=== PATIENT | female | born 1950 | race Caucasian/White ===

== ENCOUNTER 2024-10-11 21:15 | Observation (INO) | payer MEDICARE, OTHER ==
--- NOTE | 2024-10-11 22:30 | ED ---
Abdominal Pain HPI <Michael Groves - Last Filed: 10/12/24 03:34> - General Source: patient, EMS Mode of arrival: EMS Limitations: no limitations <Anaya Rodney - Last Filed: 10/12/24 10:19> - General Chief Complaint: Abdominal Pain Stated Complaint: abd pain Time Seen by Provider: 10/11/24 21:41 - History of Present Illness Initial Comments: Patient is a 74-year-old female past medical history dementia, prior CVA presenting today for concern for ileus. Patient presents from [facility], transfer paperwork states that patient was sent in for "colonic ileus". Patient was given an enema at her facility without resolution of constipation. Patient's daughter also arrived, states that facility staff called her and told her the patient has not had a bowel movement for "a long time but did not give a specific amount of time, and were concerned that she had "an ileus" so sent her to the hospital. Pt endorses abdominal pain, however history is limited by dementia. Daughter confirms pt is at her baseline. (Anaya) - Related Data Home Medications Medication Instructions Recorded Confirmed Acetaminophen [Tylenol] 650 mg PO Q6H PRN 10/12/24 10/12/24 Aspirin EC [Ecotrin Low Dose] 81 mg PO DAILY 10/12/24 10/12/24 Baclofen [Lioresal] 10 mg PO TID@0800,1200,1700 10/12/24 10/12/24 DULoxetine HCL [Cymbalta] 20 mg PO DAILY 10/12/24 10/12/24 Ensure Enlive 120 ml PO BID@0800,1700 10/12/24 10/12/24 Fluticasone Propion/Salmeterol 1 inhalation PO RT-BID 10/12/24 10/12/24 [Advair 250-50 Diskus] HYDROcodone/APAP 5-325MG [Joy 1 tab PO Q6H PRN 10/12/24 10/12/24 5-325] Lactobacillus Acidophilus 1 cap PO DAILY 10/12/24 10/12/24 [Acidophilus] Magnesium Hydroxide [Milk of 7,200 mg PO DAILY PRN 10/12/24 10/12/24 Magnesia Concentrate] Menthol [Biofreeze] 1 spray TOPICAL Q4H PRN 10/12/24 10/12/24 Metoprolol Tartrate [Lopressor] 12.5 mg PO BID 10/12/24 10/12/24 Na Phos,M-B/Na Phos,Di-Ba [Fleet 133 ml RECTAL DAILY PRN 10/12/24 10/12/24 Adult] Naloxegol Oxalate [Movantik] 12.5 mg PO DAILY 10/12/24 10/12/24 Omeprazole [PriLOSEC] 20 mg PO DAILY 10/12/24 10/12/24 Potassium Chloride [Klor-Con M10] 10 meq PO DAILY 10/12/24 10/12/24 Pravastatin Sodium [Pravachol] 20 mg PO HS 10/12/24 10/12/24 Pregabalin [Lyrica] 150 mg PO BID 10/12/24 10/12/24 Rivaroxaban [Xarelto] 10 mg PO DAILY 10/12/24 10/12/24 Sennosides [Senokot] 17.2 mg PO BID@0800,1700 10/12/24 10/12/24 bisacodyL [Dulcolax] 10 mg RECTAL DAILY PRN 10/12/24 10/12/24 dilTIAZem HCL [Cardizem CD] 120 mg PO Q24HR 10/12/24 10/12/24 levETIRAcetam [Keppra] 500 mg PO BID@0800,1700 10/12/24 10/12/24 tiZANidine [Zanaflex] 2 mg PO Q8HR PRN 10/12/24 10/12/24 Allergies Allergy/AdvReac Type Severity Reaction Status Date / Time No Known Allergies Allergy Verified 10/12/24 09:14 Review of Systems ROS Other: All systems not noted in ROS Statement are negative. <Michael Groves - Last Filed: 10/12/24 03:34> ROS Other: All systems not noted in ROS Statement are negative. <Anaya Rodney - Last Filed: 10/12/24 10:19> ROS Statement: Those systems with pertinent positive or pertinent negative responses have been documented in the HPI. General Exam Limitations: no limitations <Anaya Rodney - Last Filed: 10/12/24 10:19> - General Exam Comments Initial Comments: PE: CONSTITUTIONAL: No apparent distress, well appearing SKIN: Warm, dry, no jaundice, hives or petechiae EYES: Pupils are equally round, extraocular movements intact without nystagmus, clear conjunctiva, non-icteric sclera HENT: Normocephalic, atraumatic, moist mucus membranes, oropharynx clear without exudates NECK: , Full range of motion, normal appearance PULMONARY: Scant rhonchi in lung bases. no wheezes, or rales, normal excursion, no accessory muscle use and no stridor CARDIOVASCULAR: Regular rate, rhythm, normal S1 and S2. No appreciated murmurs, rubs or gallops. Strong radial pulses with intact distal perfusion. No lower extremity edema GASTROINTESTINAL: Soft, active bowel sounds throughout, tenderness to palpation on the right upper quadrant, mildly distended, no palpable masses, no rebound or guarding. No hepatosplenomegaly MUSCULOSKELETAL: Extremities have no gross deformity, no edema, redness, or swelling. NEUROLOGIC:_a/o x 1, GCS 14, pleasantly confused, uncertain why she is here though notes chronic right shoulder pain and abdominal pain, recognizes daughter, oriented to self, otherwise normal mentation and speech. Left-sided weakness, chronic PSYCHIATRIC:_Calm, cooperative pleasant (Anaya Rodney) Course Vital Signs 10/11/24 10/11/24 10/12/24 21:27 23:39 01:00 Temperature 98.7 F Pulse Rate 68 76 75 Respiratory 18 18 20 Rate Blood Pressure 137/80 192/92 177/88 O2 Sat by Pulse 97 97 95 Oximetry 10/12/24 03:57 Temperature 98.3 F Pulse Rate 72 Respiratory 18 Rate Blood Pressure 165/82 O2 Sat by Pulse 95 Oximetry Medical Decision Making - Lab Data Result diagrams: 10/11/24 23:15 10/11/24 23:15 <Michael Groves - Last Filed: 10/12/24 03:34> - Lab Data Result diagrams: 10/11/24 23:15 10/11/24 23:15 <Anaya Rodney - Last Filed: 10/12/24 10:19> - Medical Decision Making Patient care signed out to me by previous shift physician, Dr. Rodney. Briefly patient is a 74-year-old female presents to the emergency department with concerns of abdominal pain. Plan at signout is to follow-up with pending labs and imaging studies. CT abdomen pelvis shows no acute processes. Laboratory evaluation obtained she has intermittently elevating lactic acid level. Urinalysis shows UTI. Patient given antibiotics. She is evaluated at the bedside at 330 she is well-appearing in nature. Denies any symptoms of sepsis. No flank pain to suggest pyelonephritis. Disposition options were discussed. Given patient has rising lactic acid levels she was given fluids and will be admitted observation. Case discussed with hospitalist for admission (Michael Groves) Was pt. sent in by a medical professional or institution (, PA, SANDWICH AND DRINK CART OPERATOR, urgent care, hospital, or long term...) When possible be specific @Yes, regional medical center Did you speak to anyone other than the patient for history (EMS, parent, family, police, friend...)? What history was obtained from this source @ -Spoke with pt's daughter who assisted in providing hx, states she was told pt was sent in for an ileus, pt is at her baseline mentals status Did you review nursing and triage notes (agree or disagree)? Why? @ -[I reviewed nursing and triage notes] I disagree with triage note, patient is not a O x 4, she has a history of dementia, is oriented to self only Were old charts reviewed (outside hosp., previous admission, EMS record, old EKG, old radiological studies, urgent care reports/EKG's, long term records)? Report findings @ -[Medical records reviewed] no records available for review Differential Diagnosis (chest pain, altered mental status, abdominal pain women, abdominal pain men, vaginal bleeding, weakness, fever, dyspnea, syncope, headache, dizziness, GI bleed, back pain, seizure, CVA, palpatations, mental health, musculoskeletal)? Differential diagnosis remains broad however top considerations include bowel obstruction, volvulus, ileus, constipation, gastroenteritis, UTI, intraabdominal mass, cholecystitis, this is not an all inclusive list EKG interpreted by me (3pts min.). @ -[As above] X-rays interpreted by me (1pt min.). @ -[None done] CT interpreted by me (1pt min.). @Personally reviewed CT abdomen pelvis, appears to show right lower lobe consolidation, no signs of bowel obstruction or bowel wall thickening, CT read by radiologist pending at time of sign out at 23:15. U/S interpreted by me (1pt. min.). @ -[None done] What testing was considered but not performed or refused? (CT, X-rays, U/S, labs)? Why? @ -[None] What meds were considered but not given or refused? Why? @ -[None] Did you discuss the management of the patient with other professionals (manuel stone i.e. , PA, S[employer] AND DR[employer] CART OPERATOR, lab, RT, psych nurse, psychologist social, director of science, teacher, regulatory compliance officer, ed case manager)? Give summary @ -[No] Was smoking cessation discussed for >3mins.? @ -[No] Was critical care preformed (if so, how long)? @ -[No] Were there social determinants of health that impacted care today? How? (Homelessness, low income, unemployed, alcoholism, drug addiction, transportation, low edu. Level, literacy, decrease access to med. care, shelter, rehab)? @ -[No] Was there de-escalation of care discussed even if they declined (Discuss DNR or withdrawal of care, Hospice)? @ -[No] What co-morbidities impacted this encounter? (DM, HTN, Smoking, COPD, CAD, Cancer, CVA, ARF, Chemo, Hep., AIDS, mental health diagnosis, sleep apnea, morbid obesity)? @Prior CVA, chronically on narcotics and muscle relaxants Was patient admitted / discharged? Hospital course, mention meds given and route, prescriptions, significant lab abnormalities, going to OR and other pertinent info. @ Signed out to oncoming physician, Dr. Humphreys, pending completion of CT/labs- This is a 74-year-old female history of dementia, prior CVA presenting today for concern for "colonic ileus" noted on outpatient x-ray performed at patient's assisted living facility due to constipation and no resolution of constipation with an enema. Patient presents via EMS. Her daughter arrived shortly afterwards and assisted in providing history. History limited due to history of dementia. I did review x-ray report provided with the patient, it appears abdominal x-ray was done earlier today that was read as "colonic ileus" with large stool burden. Vital signs stable on arrival. Abdomen is mildly distended with active bowel sounds. TTP in the right upper quadrant. Discussed with patient and daughter plan for pain control, labs, CT abdomen pelvis, they are agreeable with POC. Pending completion of labs and imaging, patient was signed out to oncoming physician at 11:15 PM. (Anaya Rodney) - Lab Data Lab Results 10/11/24 10/11/24 10/11/24 Range/Units 23:15 23:15 23:15 WBC 6.89 (4.50-10.00) 10*3/uL RBC 4.25 (4.10-5.20) 10*6/uL Hgb 12.5 (12.0-15.0) g/dL Hct 37.3 (37.2-46.3) % MCV 87.8 (80.0-97.0) fL MCH 29.4 (27.0-32.0) pg MCHC 33.5 (32.0-37.0) g/dL Plt Count 232 (140-440) 10*3/uL MPV 9.8 (9.5-12.2) fL Immature Gran % (Auto) 0.3 % Neutrophils % 59.5 % Lymphocytes % 29.2 % Monocytes % 10.6 % Eosinophils % 0.0 % Basophils % 0.4 % Immature Gran # 0.02 (0.00-0.04) 10*3/uL Neutrophils # 4.10 (1.80-7.70) 10*3/uL Lymphocytes # 2.01 (0.90-5.00) 10*3/uL Monocytes # 0.73 (0.20-1.00) 10*3/uL Eosinophils # 0.00 L (0.04-0.35) 10*3/uL Basophils # 0.03 (0.00-0.10) 10*3/uL PT 11.7 (10.0-12.5) sec INR 1.1 (<1.2) APTT 46.0 H (22.0-30.0) sec Sodium 140 (137-145) mmol/L Potassium 4.0 (3.5-5.1) mmol/L Chloride 107 (98-107) mmol/L Carbon Dioxide 27 (22-30) mmol/L Anion Gap 6 mmol/L BUN 14 (7-17) mg/dL Creatinine 0.52 (0.52-1.04) mg/dL Est GFR (CKD-EPI)AfAm >90 (>60 ml/min/1.73 sqM) Est GFR (CKD-EPI)NonAf >90 (>60 ml/min/1.73 sqM) Glucose 95 (74-99) mg/dL Lactic Ac Sepsis Rflx Plasma Lactic Acid Stephen (0.7-2.0) mmol/L Calcium 9.0 (8.4-10.2) mg/dL Total Bilirubin 0.8 (0.2-1.3) mg/dL AST 28 (14-36) U/L ALT 13 (4-34) U/L Alkaline Phosphatase 62 (38-126) U/L Total Protein 6.4 (6.3-8.2) g/dL Albumin 3.5 (3.5-5.0) g/dL Amylase 72 (30-110) U/L Lipase 84 (23-300) U/L Urine Color Urine Appearance (Clear) Urine pH (5.0-8.0) Ur Specific [place] (1.001-1.035) Urine Protein (Negative) Urine Glucose (UA) (Negative) Urine Ketones (Negative) Urine Blood (Negative) Urine Nitrite (Negative) Urine Bilirubin (Negative) Urine Urobilinogen (<2.0) mg/dL Ur Leukocyte Esterase (Negative) Urine RBC (0-5) /hpf Urine WBC (0-5) /hpf Urine WBC Clumps (None) /hpf Ur Squamous Epith Cells (0-4) /hpf Amorphous Sediment (None) /hpf Urine Bacteria (None) /hpf Urine Mucus (None) /hpf Urine Yeast (Budding) (None) /hpf Blood Type Blood Type Recheck Bld Type Recheck Status Antibody Screen Spec Expiration Date 10/11/24 10/11/24 10/12/24 Range/Units 23:15 23:15 00:03 WBC (4.50-10.00) 10*3/uL RBC (4.10-5.20) 10*6/uL Hgb (12.0-15.0) g/dL Hct (37.2-46.3) % MCV (80.0-97.0) fL MCH (27.0-32.0) pg MCHC (32.0-37.0) g/dL Plt Count (140-440) 10*3/uL MPV (9.5-12.2) fL Immature Gran % (Auto) % Neutrophils % % Lymphocytes % % Monocytes % % Eosinophils % % Basophils % % Immature Gran # (0.00-0.04) 10*3/uL Neutrophils # (1.80-7.70) 10*3/uL Lymphocytes # (0.90-5.00) 10*3/uL Monocytes # (0.20-1.00) 10*3/uL Eosinophils # (0.04-0.35) 10*3/uL Basophils # (0.00-0.10) 10*3/uL PT (10.0-12.5) sec INR (<1.2) APTT (22.0-30.0) sec Sodium (137-145) mmol/L Potassium (3.5-5.1) mmol/L Chloride (98-107) mmol/L Carbon Dioxide (22-30) mmol/L Anion Gap mmol/L BUN (7-17) mg/dL Creatinine (0.52-1.04) mg/dL Est GFR (CKD-EPI)AfAm (>60 ml/min/1.73 sqM) Est GFR (CKD-EPI)NonAf (>60 ml/min/1.73 sqM) Glucose (74-99) mg/dL Lactic Ac Sepsis Rflx Y Plasma Lactic Acid Stephen 2.1 H* (0.7-2.0) mmol/L Calcium (8.4-10.2) mg/dL Total Bilirubin (0.2-1.3) mg/dL AST (14-36) U/L ALT (4-34) U/L Alkaline Phosphatase (38-126) U/L Total Protein (6.3-8.2) g/dL Albumin (3.5-5.0) g/dL Amylase (30-110) U/L Lipase (23-300) U/L Urine Color Urine Appearance (Clear) Urine pH (5.0-8.0) Ur Specific [place] (1.001-1.035) Urine Protein (Negative) Urine Glucose (UA) (Negative) Urine Ketones (Negative) Urine Blood (Negative) Urine Nitrite (Negative) Urine Bilirubin (Negative) Urine Urobilinogen (<2.0) mg/dL Ur Leukocyte Esterase (Negative) Urine RBC (0-5) /hpf Urine WBC (0-5) /hpf Urine WBC Clumps (None) /hpf Ur Squamous Epith Cells (0-4) /hpf Amorphous Sediment (None) /hpf Urine Bacteria (None) /hpf Urine Mucus (None) /hpf Urine Yeast (Budding) (None) /hpf Blood Type A Positive Blood Type Recheck No Previous Record Bld Type Recheck Status CABO Indicated Antibody Screen NEGATIVE Spec Expiration Date 10/14/2024 - 231410/12/24 10/12/24 10/12/24 Range/Units 02:25 02:30 03:14 WBC (4.50-10.00) 10*3/uL RBC (4.10-5.20) 10*6/uL Hgb (12.0-15.0) g/dL Hct (37.2-46.3) % MCV (80.0-97.0) fL MCH (27.0-32.0) pg MCHC (32.0-37.0) g/dL Plt Count (140-440) 10*3/uL MPV (9.5-12.2) fL Immature Gran % (Auto) % Neutrophils % % Lymphocytes % % Monocytes % % Eosinophils % % Basophils % % Immature Gran # (0.00-0.04) 10*3/uL Neutrophils # (1.80-7.70) 10*3/uL Lymphocytes # (0.90-5.00) 10*3/uL Monocytes # (0.20-1.00) 10*3/uL Eosinophils # (0.04-0.35) 10*3/uL Basophils # (0.00-0.10) 10*3/uL PT (10.0-12.5) sec INR (<1.2) APTT (22.0-30.0) sec Sodium (137-145) mmol/L Potassium (3.5-5.1) mmol/L Chloride (98-107) mmol/L Carbon Dioxide (22-30) mmol/L Anion Gap mmol/L BUN (7-17) mg/dL Creatinine (0.52-1.04) mg/dL Est GFR (CKD-EPI)AfAm (>60 ml/min/1.73 sqM) Est GFR (CKD-EPI)NonAf (>60 ml/min/1.73 sqM) Glucose (74-99) mg/dL Lactic Ac Sepsis Rflx Y Plasma Lactic Acid Stephen 2.6 H* (0.7-2.0) mmol/L Calcium (8.4-10.2) mg/dL Total Bilirubin (0.2-1.3) mg/dL AST (14-36) U/L ALT (4-34) U/L Alkaline Phosphatase (38-126) U/L Total Protein (6.3-8.2) g/dL Albumin (3.5-5.0) g/dL Amylase (30-110) U/L Lipase (23-300) U/L Urine Color Light Yellow Urine Appearance Cloudy H (Clear) Urine pH 6.5 (5.0-8.0) Ur Specific [place] 1.015 (1.001-1.035) Urine Protein Negative (Negative) Urine Glucose (UA) Negative (Negative) Urine Ketones Negative (Negative) Urine Blood Small H (Negative) Urine Nitrite Negative (Negative) Urine Bilirubin Negative (Negative) Urine Urobilinogen <2.0 (<2.0) mg/dL Ur Leukocyte Esterase Large H (Negative) Urine RBC 10 H (0-5) /hpf Urine WBC 43 H (0-5) /hpf Urine WBC Clumps Few H (None) /hpf Ur Squamous Epith Cells 8 H (0-4) /hpf Amorphous Sediment Moderate H (None) /hpf Urine Bacteria Moderate H (None) /hpf Urine Mucus Rare H (None) /hpf Urine Yeast (Budding) Rare H (None) /hpf Blood Type Blood Type Recheck Bld Type Recheck Status Antibody Screen Spec Expiration Date Disposition Decision Time: 03:35 <Michael Groves - Last Filed: 10/12/24 03:34> <Anaya Rodney - Last Filed: 10/12/24 10:19> Clinical Impression: Lactic acidosis, UTI (urinary tract infection), Right lower lobe lung mass Disposition: ADMITTED IP TO THIS HOSP Condition: Fair
[2024-10-11] MEDS: HYDROcodone/APAP 5-325MG 1 EACH TAB PO STA (23:08)
[2024-10-11 23:35] LABS: Basophils # (A) 0.03 10*3/uL (0.00-0.10); Basophils % (A) 0.4 %; HCT 37.3 % (37.2-46.3); HGB 12.5 g/dL (12.0-15.0); Lymphocytes # (A) 2.01 10*3/uL (0.90-5.00); Lymphocytes % (A) 29.2 %; MCH 29.4 pg (27.0-32.0); MCHC 33.5 g/dL (32.0-37.0); MCV 87.8 fL (80.0-97.0); Mean Platelet Volume 9.8 fL (9.5-12.2); Monocytes # (A) 0.73 10*3/uL (0.20-1.00); Monocytes % (A) 10.6 %; Neutrophils % (A) 59.5 %; Platelet Count 232 10*3/uL (140-440); RBC 4.25 10*6/uL (4.10-5.20); RDW 14.6 % (11.5-14.5); WBC 6.89 10*3/uL (4.50-10.00)
[2024-10-11 23:52] LABS: ALT 13 U/L (4-34); African American GFR (CKD) >90 (>60 ml/min/1.73 sqM); Albumin 3.5 g/dL (3.5-5.0); Amylase 72 U/L (30-110); Anion Gap 6 mmol/L; Blood Urea Nitrogen 14 mg/dL (7-17); Carbon Dioxide 27 mmol/L (22-30); Chloride 107 mmol/L (98-107); Glucose 95 mg/dL (74-99); Lipase 84 U/L (23-300); Non-African American GFR(CKD) >90 (>60 ml/min/1.73 sqM); Sodium 140 mmol/L (137-145); Total Bilirubin 0.8 mg/dL (0.2-1.3); Total Protein 6.4 g/dL (6.3-8.2)
[2024-10-12 00:01] LABS: AST 28 U/L (14-36); Alkaline Phosphatase 62 U/L (38-126)
[2024-10-12 00:16] LABS: INR 1.1 (<1.2); Prothrombin Time 11.7 sec (10.0-12.5)
--- NOTE | 2024-10-12 00:28 | CT ---
EXAM: CT Abdomen and Pelvis Without Intravenous Contrast CLINICAL HISTORY: ITS.REASON CT Reason: abdominal pain TECHNIQUE: Axial computed tomography images of the abdomen and pelvis without intravenous contrast. CTDI is 11.9 mGy and DLP is 756.6 mGy-cm. This CT exam was performed using one or more of the following dose reduction techniques: automated exposure control, adjustment of the mA and/or kV according to patient size, and/or use of iterative reconstruction technique. COMPARISON: No relevant prior studies available. FINDINGS: Lung bases: RIGHT lower lobe mass measures 3 cm, partly the field-of- view. Recommend chest CT. ABDOMEN: Liver: Unremarkable. Gallbladder and bile ducts: Cholecystectomy. No ductal dilation. Pancreas: Unremarkable. No ductal dilation. Spleen: Unremarkable. No splenomegaly. Adrenals: Unremarkable. No mass. Kidneys and ureters: Unremarkable. No obstructing stones. No hydronephrosis. Stomach and bowel: Diverticulosis, without acute diverticulitis. No small bowel obstruction. No free intraperitoneal air. PELVIS: Appendix: No findings to suggest acute appendicitis. Bladder: Unremarkable. No stones. Reproductive: Hysterectomy. ABDOMEN and PELVIS: Intraperitoneal space: Unremarkable. No free air. No significant fluid collection. Bones/joints: Degenerative changes of the spine. No acute fracture. No dislocation. Soft tissues: Unremarkable. Vasculature: Atherosclerotic changes of the aorta. No abdominal aortic aneurysm. Lymph nodes: Unremarkable. No enlarged lymph nodes. IMPRESSION: 1. RIGHT lower lobe mass measures 3 cm, partly the [id number]. Recommend chest CT. 2. Cholecystectomy. 3. Hysterectomy. 4. Diverticulosis, without acute diverticulitis. No small bowel obstruction. No free intraperitoneal air.
[2024-10-12 03:04] LABS: Amorphous Sediment,Urine Moderate /hpf; Appearance,Urine Cloudy (Clear); Bacteria,Urine Moderate /hpf; Bilirubin,Urine Negative (Negative); Blood,Urine Small (Negative); Budding Yeast,Urine Rare /hpf; Color,Urine Light Yellow; Glucose,Urine (UA) Negative (Negative); Ketones,Urine Negative (Negative); Leukocyte Esterase,Urine Large (Negative); Mucus,Urine Rare /hpf; Nitrite,Urine Negative (Negative); PH, Urine 6.5 (5.0-8.0); Protein,Urine Negative (Negative); RBC,Urine 10 /hpf (0-5); Specific Gravity,Urine 1.015 (1.001-1.035); Squamous Epithelial Cell,Urine 8 /hpf (0-4); Urobilinogen,Urine <2.0 mg/dL (<2.0); WBC,Urine 43 /hpf (0-5)
[2024-10-12] MEDS ORDERED: NALOXONE 0.4 MG/ML 1 ML VIAL IV PRN (03:32)
[2024-10-12] MEDS: SODIUM CHLORIDE 0.9% 1,000 ML IV STA (03:54)
[2024-10-12] MEDS: cefTRIAXone IN SWFI 1,000 MG/10 ML SYRINGE IVP STA (03:55)
[2024-10-12] MEDS: SODIUM CHLORIDE 0.9% 1,000 ML IV SCH (04:50)
[2024-10-12] MEDS ORDERED: bisacodyL 10 MG SUPP RECTAL PRN (09:32)
[2024-10-12] MEDS ORDERED: MAGNESIUM HYDROXIDE 2,400 MG/30 ML CUP PO PRN (09:32)
[2024-10-12] MEDS ORDERED: NA PHOS,M-B/NA PHOS,DI-BA 133 ML ENEMA RECTAL PRN (09:32)
[2024-10-12] MEDS ORDERED: tiZANidine 4 MG TAB PO PRN (09:32)
[2024-10-12] MEDS ORDERED: NALOXEGOL OXALATE 12.5 MG PO SCH (10:00)
[2024-10-12] MEDS: polyethylene glycoL 3350 17 GM POWD.PACK PO SCH (10:02)
[2024-10-12] MEDS: PSYLLIUM HUSK 100% 6 GM PACKET PO SCH (10:03)
[2024-10-12] MEDS: levETIRAcetam 500 MG TAB PO SCH (10:12)
[2024-10-12] MEDS: PANTOPRAZOLE 40 MG TABLET PO SCH (10:13)
[2024-10-12] MEDS: ASPIRIN 81 MG PO SCH (10:13)
[2024-10-12] MEDS: DILTIAZEM CD 120 MG CAP.ER.24H PO SCH (10:14)
[2024-10-12] MEDS: PREGABALIN 75 MG CAP PO SCH (10:14)
[2024-10-12] MEDS: LACTOBACILLUS ACIDOPHILUS/PECT 1 EACH CAPSULE PO SCH (10:14)
[2024-10-12] MEDS: METOPROLOL TARTRATE 12.5 MG TAB PO SCH (10:16)
[2024-10-12] MEDS: ENOXAPARIN 40 MG/0.4 ML SYRINGE SQ SCH (10:16)
[2024-10-12] MEDS: DULoxetine HCL 20 MG CAPSULE.DR PO SCH (10:17)
[2024-10-12] MEDS: RIVAROXABAN 10 MG TAB PO SCH (10:18)
--- NOTE | 2024-10-12 12:30 | XR ---
EXAMINATION TYPE: XR abdomen 2V DATE OF EXAM: 10/12/2024 12:15 PM COMPARISON: CT CLINICAL INDICATION: Female, 74 years old with history of No BM for several days; [facility] TECHNIQUE: Two views of the abdomen were obtained. FINDINGS: Mild to moderate stool burden throughout the colon. The bowel gas pattern is nonspecific w ithout dilated loops of small or large bowel. Fecal material and gas are demonstrated throughout the colon and rectum. There is no evidence for organomegaly or pneumoperitoneum. No acute osseous proces s. No abnormal calcifications are present. IMPRESSION: 1. Mild to moderate stool burden throughout the colon similar to CT. Nonspecific bowel gas pattern w ithout radiographic evidence for acute process. 2. Right lower lobe mass seen on CT should be further evaluated with CT chest. Ultimately tissue endy pling via bronchoscopy. [facility], , 10/12/2024 12:28 PM
[2024-10-12] MEDS: NALOXEGOL OXALATE 12.5 MG PO SCH (12:37)
[2024-10-12] MEDS: MAGNESIUM CITRATE 296 ML BOTTLE PO ONE (13:07)
[2024-10-12] MEDS: SYMBICORT 80-4.5 MCG INHALER INHALATION SCH (13:14)
[2024-10-12] MEDS: BACLOFEN 10 MG TAB PO SCH (13:15)
[2024-10-12] MEDS ORDERED: NON FORMULARY DRUG (Ensure Enlive 120 ML) PO SCH (17:00)
--- NOTE | 2024-10-12 18:01 | P.HPIM ---
History of Present Illness H&P Date: 10/12/24 Chief Complaint: Constipation 74-year-old patient, resident of [facility] being followed by Dr. Coe. Patient was sent in for abdominal pain. Apparently has not had a bowel movement for few days. Denies any nausea vomiting. Patient is a poor historian. I had the radiologist look at the CT scan and also abdominal x-ray ordered today. Did show moderate stool. Review of systems: GEN.: Tired EYES: None HEENT: None NECK: None RESPIRATORY: None CARDIOVASCULAR: None GASTROINTESTINAL: Abdominal discomfort GENITOURINARY: None MUSCULOSKELETAL: Joint pains LYMPHATICS: None HEMATOLOGICAL: None PSYCHIATRY: [Forgetful NEUROLOGICAL: None Social history: Resident at [facility]. [facility] Physical examination: VITAL SIGNS: 98.3, 64, 16, 154 x 76, 98% room air GENERAL: BMI 30, lying bed awake a bit tired. EYES: Pupils equal. Conjunctiva justo l. HEENT: External appearance of nose and ears normal, oral cavity grossly normal. NECK: JVD not raised; masses not palpable. HEART: First and second heart sounds are normal; no edema. LUNGS: Respiratory rate normal; clear to auscultation. ABDOMEN: Soft, nontender, liver spleen not palpable, no masses palpable. PSYCH: Patient is able to answer some simple questions l. MUSCULOSKELETAL:No Clubbing/cyanosis;muscles-grossly intact NEUROLOGICAL: Cranial nerves grossly intact; no facial asymmetry, left arm co ntracture. Bilateral foot drop. LYMPHATICS: No lymph nodes palpable in the axilla and neck INVESTIGATIONS, reviewed in the clinical context: Abdominal x-ray: Mild to moderate stool burden throughout the colon. Similar to CT. Right lung mass October 11, 2024: White count 6.8 hemoglobin 12.5 platelets 232 sodium 140 potassium 4 BUN 14 creatinine 0.52 Lactic acid 2.1, 2.6 UA: Nitrite negative leukoesterase large WBC [address] abdomen pelvis: Cholecystectomy. Hysterectomy. Diverticulosis. Right lung mass 3 cm Assessment and plan: - Significant obstipation Magnesium citrate and soapsuds enema ordered - Asymptomatic bacteriuria. No antibiotics needed - Type II lactic acidosis. No clinical overt evidence of infection - Primary osteoarthritis Pain medication as needed - Essential hypertension Cardizem CD Lopressor - Seizure disorder Keppra - Atrial fibrillation history Cardizem CD. Lopressor. Xarelto - Right lung mass 3 cm Given patient's comorbidities and poor functional status probably need further workup will not be too fruitful. Will get the pulmonary consultation in the meantime - Chronic pain Lyrica. [place]. - Left arm contracture - Bilateral foot drop - Severe cognitive impairment from underlying dementia Patient been given magnesium citrate soapsuds. Home medications resumed. If patient has a good bowel movement today. He could be discharged tomorrow return to [facility] Medications and Allergies Home Medications Medication Instructions Recorded Confirmed Type Acetaminophen [Tylenol] 650 mg PO Q6H PRN 10/12/24 10/12/24 History Aspirin EC [Ecotrin Low Dose] 81 mg PO DAILY 10/12/24 10/12/24 History Baclofen [Lioresal] 10 mg PO TID@0800,1200,1700 10/12/24 10/12/24 History DULoxetine HCL [Cymbalta] 20 mg PO DAILY 10/12/24 10/12/24 History Ensure Enlive 120 ml PO BID@0800,1700 10/12/24 10/12/24 History Fluticasone Propion/Salmeterol 1 inhalation PO RT-BID 10/12/24 10/12/24 History [Advair 250-50 Diskus] HYDROcodone/APAP 5-325MG [[place] 1 tab PO Q6H PRN 10/12/24 10/12/24 History 5-325] Lactobacillus Acidophilus 1 cap PO DAILY 10/12/24 10/12/24 History [Acidophilus] Magnesium Hydroxide [Milk of 7,200 mg PO DAILY PRN 10/12/24 10/12/24 History Magnesia Concentrate] Menthol [Biofreeze] 1 spray TOPICAL Q4H PRN 10/12/24 10/12/24 History Metoprolol Tartrate [Lopressor] 12.5 mg PO BID 10/12/24 10/12/24 History Na Phos,M-B/Na Phos,Di-Ba [Fleet 133 ml RECTAL DAILY PRN 10/12/24 10/12/24 History Adult] Naloxegol Oxalate [Movantik] 12.5 mg PO DAILY 10/12/24 10/12/24 History Omeprazole [PriLOSEC] 20 mg PO DAILY 10/12/24 10/12/24 History Potassium Chloride [Klor-Con M10] 10 meq PO DAILY 10/12/24 10/12/24 History Pravastatin Sodium [Pravachol] 20 mg PO HS 10/12/24 10/12/24 History Pregabalin [Lyrica] 150 mg PO BID 10/12/24 10/12/24 History Rivaroxaban [Xarelto] 10 mg PO DAILY 10/12/24 10/12/24 History Sennosides [Senokot] 17.2 mg PO BID@0800,1700 10/12/24 10/12/24 History bisacodyL [Dulcolax] 10 mg RECTAL DAILY PRN 10/12/24 10/12/24 History dilTIAZem HCL [Cardizem CD] 120 mg PO Q24HR 10/12/24 10/12/24 History levETIRAcetam [Keppra] 500 mg PO BID@0800,1700 10/12/24 10/12/24 History tiZANidine [Zanaflex] 2 mg PO Q8HR PRN 10/12/24 10/12/24 History Allergies Allergy/AdvReac Type Severity Reaction Status Date / Time No Known Allergies Allergy Verified 10/12/24 09:14 Physical Exam Vitals: Vital Signs Temp Pulse Resp BP Pulse Ox 10/12/24 03:57 98.3 F 72 18 165/82 95 10/12/24 01:00 75 20 177/88 95 10/11/24 23:39 76 18 192/92 97 10/11/24 21:27 98.7 F 68 18 137/80 97 Intake and Output 10/11/24 10/12/24 10/12/24 22:59 06:59 14:59 Other: Weight 81.647 kg Results CBC & Chem 7: 10/11/24 23:15 10/11/24 23:15 Labs: Abnormal Lab Results - Last 24 Hours (Table) 10/11/24 10/11/24 10/11/24 Range/Units 23:15 23:15 23:15 Eosinophils # 0.00 L (0.04-0.35) 10*3/uL APTT 46.0 H (22.0-30.0) sec Plasma Lactic Acid Stephen 2.1 H* (0.7-2.0) mmol/L Urine Appearance (Clear) Urine Blood (Negative) Ur Leukocyte Esterase (Negative) Urine RBC (0-5) /hpf Urine WBC (0-5) /hpf Urine WBC Clumps (None) /hpf Ur Squamous Epith Cells (0-4) /hpf Amorphous Sediment (None) /hpf Urine Bacteria (None) /hpf Urine Mucus (None) /hpf Urine Yeast (Budding) (None) /hpf 10/12/24 10/12/24 Range/Units 02:25 02:30 Eosinophils # (0.04-0.35) 10*3/uL APTT (22.0-30.0) sec Plasma Lactic Acid Stephen 2.6 H* (0.7-2.0) mmol/L Urine Appearance Cloudy H (Clear) Urine Blood Small H (Negative) Ur Leukocyte Esterase Large H (Negative) Urine RBC 10 H (0-5) /hpf Urine WBC 43 H (0-5) /hpf Urine WBC Clumps Few H (None) /hpf Ur Squamous Epith Cells 8 H (0-4) /hpf Amorphous Sediment Moderate H (None) /hpf Urine Bacteria Moderate H (None) /hpf Urine Mucus Rare H (None) /hpf Urine Yeast (Budding) Rare H (None) /hpf
[2024-10-12] MEDS: SENNOSIDES 8.6 MG TAB PO SCH (18:19)
[2024-10-12] MEDS: PRAVASTATIN SODIUM 20 MG TAB PO SCH (20:47)
[2024-10-12] MEDS ORDERED: PSYLLIUM HUSK 100% 6 GM PACKET PO SCH (21:00)
--- NOTE | 2024-10-12 23:21 | P.CNPUL ---
History of Present Illness Consult date: 10/12/24 Reason for consult: lung mass History of present illness: This is a 74-year-old female patient, extremely debilitated related to previous CVA and dementia. The patient has chronic left-sided hemiplegia with contractures and the patient is nonambulatory and she is a [facility] resident. She has chronic contractures involving the left upper and left lower extremity. She is essentially bedridden. She has also cognitive impairment related to dementia. She presents from [facility] for some abdominal pain and and patient has not had a bowel movement for several days. Based on that, CAT scan of the abdomen and pelvis was done and a CAT scan showed a right lower lobe mass measuring 3 cm in size. There is also diverticulosis without diverticulitis. No evidence of any bowel obstruction. No intraperitoneal air. Patient is post hysterectomy and cholecystectomy. She is currently on room air oxygen. Denies having any shortness of breath. She is a former smoker. Pulse ox 96% room air oxygen. Afebrile. Lactic acid level was at 2.6 To 1.5. UA Is Abnormal with 43 WBCs, 10 RBCs, Rare Yeast, and the Chemistry Is within Normal Limits. Normal Electrolytes. Normal Renal Function. White Cell Count Is 6.8 with a Hemoglobin of 12.5. Patient Is Being Given Laxatives. No Previous History of Lung Cancer. No respiratory distress. No hemoptysis. No pleurisy. No aspiration. Review of Systems Constitutional: Reports fatigue, Reports poor appetite, Reports weakness Eyes: denies as per HPI, denies blurred vision, denies bulging eye, denies decreased vision, denies diplopia, denies discharge, denies dry eye, denies irritation, denies itching, denies pain, denies photophobia, denies loss of peripheral vision, denies loss of vision, denies tunnel vision/blind spots Ears: deny: decreased hearing, ear discharge, earache, tinnitus Ears, nose, mouth and throat: Reports as per HPI Breasts: absent: as per HPI, change in shape, gynecomastia, masses, nipple discharge, pain, skin changes, swelling Cardiovascular: Reports decreased exercise tolerance Respiratory: Reports as per HPI Gastrointestinal: Reports as per HPI, Reports constipation Genitourinary: Reports as per HPI Menstruation: Reports as per HPI Musculoskeletal: Reports as per HPI Musculoskeletal: absent: ankle pain, ankle stiffness, ankle swelling, as per HPI, elbow pain, elbow stiffness, elbow swelling, foot pain, foot stiffness, foot swelling, hand pain, hand stiffness, hand swelling, hip pain, hip stiffness, hip swelling, knee pain, knee stiffness, knee swelling, shoulder pain, shoulder stiffness, shoulder swelling, wrist pain, wrist stiffness, wrist swelling Integumentary: Reports as per HPI Neurological: Reports balance difficulties, Reports gait dysfunction, Reports motor disturbance, Reports paralysis, Reports weakness Psychiatric: Reports as per HPI Endocrine: Reports as per HPI, Reports flushing Allergic/Immunologic: Reports as per HPI Past Medical History Past Medical History: Atrial Fibrillation, CVA/TIA (Left-sided hemiplegia, dementia), Hyperlipidemia, Hypertension Additional Past Medical History / Comment(s): Seizure disorder, A-fib Medications and Allergies Home Medications Medication Instructions Recorded Confirmed Type Acetaminophen [Tylenol] 650 mg PO Q6H PRN 10/12/24 10/12/24 History Aspirin EC [Ecotrin Low Dose] 81 mg PO DAILY 10/12/24 10/12/24 History Baclofen [Lioresal] 10 mg PO TID@0800,1200,1700 10/12/24 10/12/24 History DULoxetine HCL [Cymbalta] 20 mg PO DAILY 10/12/24 10/12/24 History Ensure Enlive 120 ml PO BID@0800,1700 10/12/24 10/12/24 History Fluticasone Propion/Salmeterol 1 inhalation PO RT-BID 10/12/24 10/12/24 History [Advair 250-50 Diskus] HYDROcodone/APAP 5-325MG [[place] 1 tab PO Q6H PRN 10/12/24 10/12/24 History 5-325] Lactobacillus Acidophilus 1 cap PO DAILY 10/12/24 10/12/24 History [Acidophilus] Magnesium Hydroxide [Milk of 7,200 mg PO DAILY PRN 10/12/24 10/12/24 History Magnesia Concentrate] Menthol [Biofreeze] 1 spray TOPICAL Q4H PRN 10/12/24 10/12/24 History Metoprolol Tartrate [Lopressor] 12.5 mg PO BID 10/12/24 10/12/24 History Na Phos,M-B/Na Phos,Di-Ba [Fleet 133 ml RECTAL DAILY PRN 10/12/24 10/12/24 History Adult] Naloxegol Oxalate [Movantik] 12.5 mg PO DAILY 10/12/24 10/12/24 History Omeprazole [PriLOSEC] 20 mg PO DAILY 10/12/24 10/12/24 History Potassium Chloride [Klor-Con M10] 10 meq PO DAILY 10/12/24 10/12/24 History Pravastatin Sodium [Pravachol] 20 mg PO HS 10/12/24 10/12/24 History Pregabalin [Lyrica] 150 mg PO BID 10/12/24 10/12/24 History Rivaroxaban [Xarelto] 10 mg PO DAILY 10/12/24 10/12/24 History Sennosides [Senokot] 17.2 mg PO BID@0800,1700 10/12/24 10/12/24 History bisacodyL [Dulcolax] 10 mg RECTAL DAILY PRN 10/12/24 10/12/24 History dilTIAZem HCL [Cardizem CD] 120 mg PO Q24HR 10/12/24 10/12/24 History levETIRAcetam [Keppra] 500 mg PO BID@0800,1700 10/12/24 10/12/24 History tiZANidine [Zanaflex] 2 mg PO Q8HR PRN 10/12/24 10/12/24 History Allergies Allergy/AdvReac Type Severity Reaction Status Date / Time No Known Allergies Allergy Verified 10/12/24 09:14 Physical Exam Vitals: Vital Signs Temp Pulse Resp BP Pulse Ox 10/12/24 18:16 98.4 F 66 16 98 10/12/24 17:28 168/75 10/12/24 10:00 64 16 154/76 98 10/12/24 08:00 69 16 10/12/24 03:57 98.3 F 72 18 165/82 95 10/12/24 01:00 75 20 177/88 95 10/11/24 23:39 76 18 192/92 97 10/11/24 21:27 98.7 F 68 18 137/80 97 GENERAL: BMI 30, lying bed awake a bit tired. The patient is currently on room air oxygen. No respiratory distress. No agitation. EYES: Pupils equal. Conjunctiva justo l. HEENT: External appearance of nose and ears normal, oral cavity grossly normal. NECK: JVD not raised; masses not palpable. HEART: First and second heart sounds are normal; no edema. LUNGS: Respiratory rate normal; clear to auscultation. ABDOMEN: Soft, nontender, liver spleen not palpable, no masses palpable. PSYCH: Patient is able to answer some simple questions l. MUSCULOSKELETAL:No Clubbing/cyanosis;muscles-grossly intact NEUROLOGICAL: Cranial nerves grossly intact; no facial asymmetry, left arm contracture. Bilateral foot drop. Chronic left-sided hemiplegia with contractures and the patient is cognitive impairment related to chronic right dementia. Poor insight in her condition. LYMPHATICS: No lymph nodes palpable in the axilla and neck Results - Laboratory Findings CBC and BMP: 10/11/24 23:15 10/11/24 23:15 PT/INR, D-dimer PT 11.7 sec (10.0-12.5) 10/11/24 23:15 INR 1.1 (<1.2) 10/11/24 23:15 Abnormal lab findings: Abnormal Labs 10/11/24 10/11/24 10/11/24 23:15 23:15 23:15 Eosinophils # 0.00 L APTT 46.0 H Plasma Lactic Acid Stephen 2.1 H* Urine Appearance Urine Blood Ur Leukocyte Esterase Urine RBC Urine WBC Urine WBC Clumps Ur Squamous Epith Cells Amorphous Sediment Urine Bacteria Urine Mucus Urine Yeast (Budding) 10/12/24 10/12/24 02:25 02:30 Eosinophils # APTT Plasma Lactic Acid Stephen 2.6 H* Urine Appearance Cloudy H Urine Blood Small H Ur Leukocyte Esterase Large H Urine RBC 10 H Urine WBC 43 H Urine WBC Clumps Few H Ur Squamous Epith Cells 8 H Amorphous Sediment Moderate H Urine Bacteria Moderate H Urine Mucus Rare H Urine Yeast (Budding) Rare H Assessment and Plan Plan: Right lower lobe mass, incidental finding identified on a CAT scan of the abdomen done as part of workup for abdominal pain and constipation. 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 Chronic constipation Hypertension Seizure disorder Chronic A-fib maintained on a combination of Lopressor and Cardizem CD and anticoagulation with Xarelto Chronic pain History of CVA with chronic debility and left-sided hemiplegia with contractures involving the left upper and left lower extremity and the patient is nonambulatory Dementia with impairment cognitive functions Asymptomatic bacteriuria Degenerative arthritis skilled nursing resident Former smoker Plan Based on the CAT scan of the abdomen findings, there is a right lower lobe mass, an incidental finding which is quite suspicious for malignancy. Nevertheless, the patient is not in any shape or form to undergo further diagnostic or therapeutic interventions regarding right lower lobe mass even the diagnosis of lung cancer was established. Would like to obtain a full CAT scan of the chest with contrast. This will be mainly to assess right lower lobe findings and somewhat prognosticate and stage her disease. As stated, no infectious to any tissue diagnosis at this point in time. Treat constipation Treat comorbidities Very poor insight on her condition. She has cognitive impairments and chronic debility related to her previous CVA and chronic contractures in her left upper extremity and the patient essentially bedridden [facility] resident. Will manage her conservatively. Will continue to follow. Treatment of constipation per medicine. Time with Patient: Greater than 30
[2024-10-13] MEDS: HYDROcodone/APAP 5-325MG 1 EACH TAB PO PRN (00:43)
--- NOTE | 2024-10-13 15:00 | P.PN ---
Subjective Progress Note Date: 10/13/24 74-year-old patient, resident of [facility] being followed by Dr. Coe. Patient was sent in for abdominal pain. Apparently has not had a bowel movement for few days. Denies any nausea vomiting. Patient is a poor historian. I had the radiologist look at the CT scan and also abdominal x-ray ordered today. Did show moderate stool. 10/13. Patient seen examined. Did start having bowel movement. Denies abdominal pain. Vital signs stable REVIEW OF SYSTEMS: CONSTITUTIONAL: No fever, no malaise,. CARDIOVASCULAR: No chest pain, no palpitations, no syncope. PULMONARY: No shortness of breath, no cough, GASTROINTESTINAL: No diarrhea, no nausea, no vomiting, no abdominal pain. NEUROLOGICAL: No headaches, no weakness, PHYSICAL EXAMINATION: GENERAL: The patient is alert, chronically ill looking HEENT: Pupils are round and equally reacting to light. EOMI. No scleral icterus. No conjunctival pallor. Normocephalic, atraumatic. No pharyngeal erythema. No thyromegaly. CARDIOVASCULAR: S1 and S2 present. No murmurs, rubs, or gallops. PULMONARY: Chest is clear to auscultation, no wheezing or crackles. ABDOMEN: Soft, nontender, nondistended, normoactive bowel sounds. No palpable organomegaly. MUSCULOSKELETAL: No joint swelling or deformity. EXTREMITIES: No cyanosis, clubbing, or pedal edema. NEUROLOGICAL: Gross neurological examination did not reveal any focal deficits. SKIN: No rashes. Assessment and plan - Significant obstipation Magnesium citrate and soapsuds enema ordered - Asymptomatic bacteriuria. No antibiotics needed - Type II lactic acidosis. No clinical overt evidence of infection - Primary osteoarthritis Pain medication as needed - Essential hypertension Cardizem CD Lopressor - Seizure disorder Keppra - Atrial fibrillation history Cardizem CD. Lopressor. Xarelto - Right lung mass 3 cm Given patient's comorbidities and poor functional status probably need further workup will not be too fruitful. Pulmonology evaluated, recommended CT chest with contrast - Chronic pain Lyrica. [place]. - Left arm contracture - Bilateral foot drop - Severe cognitive impairment from underlying dementia Labs and medication were reviewed.. Continue same treatment. Continue with symptomatic treatment. Resume home medication. Monitor labs and vitals. DVT and GI prophylaxis. Further recommendations as per clinical course of the patient Dictation was produced using [email or web address] dictation software. please excuse any grammatical, word or spelling errors. Objective - Vital Signs Vital signs: Vital Signs Temp 97.4 F L 10/13/24 07:20 Pulse 61 10/13/24 07:20 Resp 17 10/13/24 07:20 BP 110/76 10/13/24 07:20 Pulse Ox 96 10/13/24 07:20 FiO2 Intake & Output 10/12/24 10/13/24 10/13/24 18:59 06:59 18:59 Weight 81.647 kg Other: Voiding Method External Catheter - Labs CBC & Chem 7: 10/11/24 23:15 10/11/24 23:15
[2024-10-13] MEDS ORDERED: RX INFO: IV CONTRAST WAS GIVEN 1 EACH MISC MISCELLANE PRN (19:50)
--- NOTE | 2024-10-13 19:50 | P.PN ---
Subjective Progress Note Date: 10/13/24 This is a 74-year-old female patient, extremely debilitated related to previous CVA and dementia. The patient has chronic left-sided hemiplegia with contractures and the patient is nonambulatory and she is a care home resident. She has chronic contractures involving the left upper and left lower extremity. She is essentially bedridden. She has also cognitive impairment related to dementia. She presents from [facility] for some abdominal pain and and patient has not had a bowel movement for several days. Based on that, CAT scan of the abdomen and pelvis was done and a CAT scan showed a right lower lobe mass measuring 3 cm in size. There is also diverticulosis without diverticulitis. No evidence of any bowel obstruction. No intraperitoneal air. Patient is post hysterectomy and cholecystectomy. She is currently on room air oxygen. Denies having any shortness of breath. She is a former smoker. Pulse ox 96% room air oxygen. Afebrile. Lactic acid level was at 2.6 To 1.5. UA Is Abnormal with 43 WBCs, 10 RBCs, Rare Yeast, and the Chemistry Is within Normal Limits. Normal Electrolytes. Normal Renal Function. White Cell Count Is 6.8 with a Hemoglobin of 12.5. Patient Is Being Given Laxatives. No Previous History of Lung Cancer. No respiratory distress. No hemoptysis. No pleurisy. No aspiration. On 10/13/2024 patient started having some bowel movement activity. No nausea or vomiting. No abdominal pain. Afebrile. Room air pulse ox 98%. Hemodynamically stable. Lactic acid level was down to 1.5. No new labs are available from today. Cultures from the urine are still negative. Patient is on Symbicort. Patient is on long-term anticoagulation with Xarelto. Remains on normal saline at 75 cc an hour. Rest of the home medications have been resumed.. Objective - Vital Signs Vital signs: Vital Signs Temp 98.0 F 10/13/24 14:00 Pulse 71 10/13/24 14:00 Resp 10/13/24 14:00 BP 95/58 10/13/24 14:00 Pulse Ox 98 10/13/24 14:00 FiO2 Intake & Output 10/13/24 10/13/24 10/14/24 06:59 18:59 06:59 Intake Total 300 Output Total 1500 Balance -1200 Weight 81.647 kg Intake: Oral 300 Output: Urine 1500 Other: Voiding Method External Catheter - Exam GENERAL: BMI 30, lying bed awake a bit tired. The patient is currently on room air oxygen. No respiratory distress. No agitation. EYES: Pupils equal. Conjunctiva justo l. HEENT: External appearance of nose and ears normal, oral cavity grossly normal. NECK: JVD not raised; masses not palpable. HEART: First and second heart sounds are normal; no edema. LUNGS: Respiratory rate normal; clear to auscultation. ABDOMEN: Soft, nontender, liver spleen not palpable, no masses palpable. PSYCH: Patient is able to answer some simple questions l. MUSCULOSKELETAL:No Clubbing/cyanosis;muscles-grossly intact NEUROLOGICAL: Cranial nerves grossly intact; no facial asymmetry, left arm con tracture. Bilateral foot drop. Chronic left-sided hemiplegia with contractures and the patient is cognitive impairment related to chronic right dementia. Poor insight in her condition. LYMPHATICS: No lymph nodes palpable in the axilla and neck - Labs CBC & Chem 7: 10/11/24 23:15 10/11/24 23:15 Labs: Microbiology - Last 24 Hours (Table) 10/12/24 02:25 Urine Culture - Final Urine,Voided Assessment and Plan Plan: Right lower lobe mass, incidental finding identified on a CAT scan of the abdomen done as part of workup for abdominal pain and constipation. 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 Hypertension Seizure disorder Chronic A-fib maintained on a combination of Lopressor and Cardizem CD and anticoagulation with Xarelto Chronic pain History of CVA with chronic debility and left-sided hemiplegia with contractures involving the left upper and left lower extremity and the patient is nonambulatory Dementia with impairment cognitive functions Asymptomatic bacteriuria Degenerative arthritis [facility] resident Former smoker Plan Condition is stable. Respiratory status also stable. Based on the CAT scan of the abdomen findings, there is a right lower lobe mass, an incidental finding which is quite suspicious for malignancy. Nevertheless, the patient is not in any shape or form to undergo further diagnostic or therapeutic interventions regarding right lower lobe mass even the diagnosis of lung cancer was established. Would like to obtain a full CAT scan of the chest with contrast. This will be mainly to assess right lower lobe findings and somewhat prognosticate and stage her disease. As stated, no interventions any tissue diagnosis at this point in time. Treat comorbidities Very poor insight on her condition. She has cognitive impairments and chronic debility related to her previous CVA and chronic contractures in her left upper extremity and the patient essentially bedridden care home resident. Will manage her conservatively. Obtain a CT scan of the chest with contrast for the reasons mentioned above. This will be essentially done to evaluate the right lower lobe mass, evaluate the mediastinum and assess the extent of her disease process.
[2024-10-13 21:37] LABS: Glucose,Whole Blood 93 mg/dL (70-110)
[2024-10-14 06:22] LABS: Glucose,Whole Blood 92 mg/dL (70-110)
[2024-10-14 09:26] LABS: Basophils # (A) 0.02 X 10*3/uL (0.00-0.10); Basophils % (A) 0.3 %; Eosinophils % (A) 1.7 %; HCT 36.3 % (37.2-46.3); HGB 11.3 g/dL (12.0-15.0); Lymphocytes # (A) 1.71 X 10*3/uL (0.90-5.00); Lymphocytes % (A) 28.3 %; MCHC 31.1 g/dL (32.0-37.0); MCV 90.1 FL (80.0-97.0); Mean Platelet Volume 10.7 FL (9.5-12.2); Monocytes # (A) 0.69 X 10*3/uL (0.20-1.00); Monocytes % (A) 11.4 %; NRBC Per 100 WBC 0 X 10*3/uL (0.00-0.01); Neutrophils # (A) 3.51 X 10*3/uL (1.80-7.70); Platelet Count 229 X 10*3/uL (140-440); RBC 4.03 X 10*6/uL (4.10-5.20); WBC 6.05 X 10*3/uL (4.50-10.00)
[2024-10-14 09:41] LABS: ALT 10 U/L (8-44); AST 15 U/L (13-35); Albumin 3.3 g/dL (3.8-4.9); Alkaline Phosphatase 77 U/L (41-126); BUN/Creat Ratio 16.67 Ratio (12.00-20.00); Calcium 7.9 mg/dL (8.7-10.3); Carbon Dioxide 25.3 mmol/L (21.6-31.8); Chloride 108 mmol/L (96-109); Globulin 2.2 g/dL (1.6-3.3); Glucose 100 mg/dL (70-110); Potassium 3.4 mmol/L (3.5-5.5); Sodium 142 mmol/L (135-145); Total Bilirubin 0.3 mg/dL (0.3-1.2); Total Protein 5.5 g/dL (6.2-8.2)
--- NOTE | 2024-10-14 09:59 | P.GSCN ---
History of Present Illness Consult date: 10/14/24 Reason for Consult: Constipation History of present illness: 74-year-old [facility] because [facility] decreased bowel function. Patient says she is having some abdominal pain. Says it is all over the abdomen. She had a CAT scan of the abdomen pelvis as well as a abdominal flatplate. Both studies show some mild to moderate stool burden. No obstructive pattern is seen. Patient says she is hungry. Unclear how much she is taking and thus far. No nausea vomiting described. Patient is confused with history of previous CVA and dementia. Unable provide significant history. Review of Systems ROS unobtainable: due to mental status Past Medical History Past Medical History: Atrial Fibrillation, CVA/TIA, Hyperlipidemia, Hypertension Additional Past Medical History / Comment(s): Seizure disorder, A-fib History of Any Multi-Drug Resistant Organisms: Unobtainable Past Anesthesia/Blood Transfusion Reactions: Unable to Obtain Smoking Status: Unknown if ever smoked Medications and Allergies Home Medications Medication Instructions Recorded Confirmed Type Acetaminophen [Tylenol] 650 mg PO Q6H PRN 10/12/24 10/12/24 History Aspirin EC [Ecotrin Low Dose] 81 mg PO DAILY 10/12/24 10/12/24 History Baclofen [Lioresal] 10 mg PO TID@0800,1200,1700 10/12/24 10/12/24 History DULoxetine HCL [Cymbalta] 20 mg PO DAILY 10/12/24 10/12/24 History Ensure Enlive 120 ml PO BID@0800,1700 10/12/24 10/12/24 History Fluticasone Propion/Salmeterol 1 inhalation PO RT-BID 10/12/24 10/12/24 History [Advair 250-50 Diskus] HYDROcodone/APAP 5-325MG [[place] 1 tab PO Q6H PRN 10/12/24 10/12/24 History 5-325] Lactobacillus Acidophilus 1 cap PO DAILY 10/12/24 10/12/24 History [Acidophilus] Magnesium Hydroxide [Milk of 7,200 mg PO DAILY PRN 10/12/24 10/12/24 History Magnesia Concentrate] Menthol [Biofreeze] 1 spray TOPICAL Q4H PRN 10/12/24 10/12/24 History Metoprolol Tartrate [Lopressor] 12.5 mg PO BID 10/12/24 10/12/24 History Na Phos,M-B/Na Phos,Di-Ba [Fleet 133 ml RECTAL DAILY PRN 10/12/24 10/12/24 History Adult] Naloxegol Oxalate [Movantik] 12.5 mg PO DAILY 10/12/24 10/12/24 History Omeprazole [PriLOSEC] 20 mg PO DAILY 10/12/24 10/12/24 History Potassium Chloride [Klor-Con M10] 10 meq PO DAILY 10/12/24 10/12/24 History Pravastatin Sodium [Pravachol] 20 mg PO HS 10/12/24 10/12/24 History Pregabalin [Lyrica] 150 mg PO BID 10/12/24 10/12/24 History Rivaroxaban [Xarelto] 10 mg PO DAILY 10/12/24 10/12/24 History Sennosides [Senokot] 17.2 mg PO BID@0800,1700 10/12/24 10/12/24 History bisacodyL [Dulcolax] 10 mg RECTAL DAILY PRN 10/12/24 10/12/24 History dilTIAZem HCL [Cardizem CD] 120 mg PO Q24HR 10/12/24 10/12/24 History levETIRAcetam [Keppra] 500 mg PO BID@0800,1700 10/12/24 10/12/24 History tiZANidine [Zanaflex] 2 mg PO Q8HR PRN 10/12/24 10/12/24 History Allergies Allergy/AdvReac Type Severity Reaction Status Date / Time No Known Allergies Allergy Verified 10/12/24 09:14 Surgical - Exam Vital Signs Temp Pulse Resp BP Pulse Ox 98.7 F 68 18 137/80 97 10/11/24 21:27 10/11/24 21:27 10/11/24 21:27 10/11/24 21:27 10/11/24 21:27 Physical exam: General: Well-developed, well-nourished HEENT: Normocephalic, sclerae nonicteric Abdomen: Mild diffuse tenderness, mild distention Extremities: No edema Neuro: Alert and confused Results - Labs 10/14/24 03:32 10/14/24 03:32 Abnormal Lab Results - Last 24 Hours (Table) 10/14/24 10/14/24 Range/Units 03:32 03:32 RBC 4.03 L (4.10-5.20) X 10*6/uL Hgb 11.3 L (12.0-15.0) g/dL Hct 36.3 L (37.2-46.3) % MCHC 31.1 L (32.0-37.0) g/dL RDW 15.0 H (11.5-14.5) % Potassium 3.4 L (3.5-5.5) mmol/L Calcium 7.9 L (8.7-10.3) mg/dL Total Protein 5.5 L (6.2-8.2) g/dL Albumin 3.3 L (3.8-4.9) g/dL Albumin/Globulin Ratio 1.50 L (1.60-3.17) Ratio Microbiology - Last 24 Hours (Table) 10/12/24 02:25 Urine Culture - Final Urine,Voided Diabetes panel 10/14/24 Range/Units 03:32 Sodium 142 (135-145) mmol/L Potassium 3.4 L (3.5-5.5) mmol/L Chloride 108 (96-109) mmol/L Carbon Dioxide 25.3 (21.6-31.8) mmol/L BUN 10.0 (9.0-27.0) mg/dL Creatinine 0.6 (0.6-1.5) mg/dL Glucose 100 (70-110) mg/dL Calcium 7.9 L (8.7-10.3) mg/dL AST 15 (13-35) U/L ALT 10 (8-44) U/L Alkaline Phosphatase 77 (41-126) U/L Total Protein 5.5 L (6.2-8.2) g/dL Albumin 3.3 L (3.8-4.9) g/dL Calcium panel 10/14/24 Range/Units 03:32 Calcium 7.9 L (8.7-10.3) mg/dL Albumin 3.3 L (3.8-4.9) g/dL Pituitary panel 10/14/24 Range/Units 03:32 Sodium 142 (135-145) mmol/L Potassium 3.4 L (3.5-5.5) mmol/L Chloride 108 (96-109) mmol/L Carbon Dioxide 25.3 (21.6-31.8) mmol/L BUN 10.0 (9.0-27.0) mg/dL Creatinine 0.6 (0.6-1.5) mg/dL Glucose 100 (70-110) mg/dL Calcium 7.9 L (8.7-10.3) mg/dL Adrenal panel 10/14/24 Range/Units 03:32 Sodium 142 (135-145) mmol/L Potassium 3.4 L (3.5-5.5) mmol/L Chloride 108 (96-109) mmol/L Carbon Dioxide 25.3 (21.6-31.8) mmol/L BUN 10.0 (9.0-27.0) mg/dL Creatinine 0.6 (0.6-1.5) mg/dL Glucose 100 (70-110) mg/dL Calcium 7.9 L (8.7-10.3) mg/dL Total Bilirubin 0.3 (0.3-1.2) mg/dL AST 15 (13-35) U/L ALT 10 (8-44) U/L Alkaline Phosphatase 77 (41-126) U/L Total Protein 5.5 L (6.2-8.2) g/dL Albumin 3.3 L (3.8-4.9) g/dL Assessment and Plan (1) Abdominal pain Narrative/Plan: 74-year-old female with abdominal pain and constipation. Add lactulose to the bowel regimen already prescribed which includes MiraLAX Senokot and probiotics. Increase activity as tolerated. Monitor bowel function. If continued constipation will perform follow-up imaging. Current Visit: Yes Status: Acute Code(s): R10.9 - UNSPECIFIED ABDOMINAL PAIN SNOMED Code(s): 72378949
--- NOTE | 2024-10-14 10:26 | CT ---
CT chest. HISTORY: Lung mass. COMPARISON: None. TECHNIQUE: Multiple axial images are obtained through the thorax following IV contrast administration . FINDINGS: There are 2 lung masses including a 2.6 cm mass in the right upper lobe posteriorly and a 3 cm mass i n the right infrahilar region. There are highly suspicious for neoplasm and direct tissue sampling or PET scan is recommended for further evaluation. The left lung is clear. There is no pleural effusion or pneumothorax. The great vessels the chest are normal and there is no mediastinal, hilar or axillary adenopathy. Limited scanning through the upper abdomen reveals no gross abnormality. There are no focal osseous l esions. IMPRESSION: 2 right lung masses as described above highly suspicious for neoplasm and further evaluation is warrall ntlynda as described above. [facility], , 10/14/2024 10:24 AM
[2024-10-14] MEDS: LACTULOSE 20 GM/30 ML CUP PO SCH (11:58)
--- NOTE | 2024-10-14 13:11 | P.PN ---
Subjective Progress Note Date: 10/14/24 74-year-old patient, resident of [facility] being followed by Dr. Coe. Patient was sent in for abdominal pain. Apparently has not had a bowel movement for few days. Denies any nausea vomiting. Patient is a poor historian. I had the radiologist look at the CT scan and also abdominal x-ray ordered today. Did show moderate stool. 10/13. Patient seen examined. Did start having bowel movement. Denies abdominal pain. Vital signs stable 10/14. Patient seen examined. Labs reviewed showing WBCs 0.05, hemoglobin 11.3, platelet count 229, sodium 142, potassium 3.4, BUN 10, creatinine 0.6. Surgery evaluated, added lactulose to the bowel regimen REVIEW OF SYSTEMS: CONSTITUTIONAL: No fever, no malaise,. CARDIOVASCULAR: No chest pain, no palpitations, no syncope. PULMONARY: No shortness of breath, no cough, GASTROINTESTINAL: No diarrhea, no nausea, no vomiting, no abdominal pain. NEUROLOGICAL: No headaches, no weakness, PHYSICAL EXAMINATION: GENERAL: The patient is alert, chronically ill looking HEENT: Pupils are round and equally reacting to light. EOMI. No scleral icterus. No conjunctival pallor. Normocephalic, atraumatic. No pharyngeal erythema. No t hyromegaly. CARDIOVASCULAR: S1 and S2 present. No murmurs, rubs, or gallops. PULMONARY: Chest is clear to auscultation, no wheezing or crackles. ABDOMEN: Soft, nontender, nondistended, normoactive bowel sounds. No palpable organomegaly. MUSCULOSKELETAL: No joint swelling or deformity. EXTREMITIES: No cyanosis, clubbing, or pedal edema. NEUROLOGICAL: Gross neurological examination did not reveal any focal deficits. SKIN: No rashes. Assessment and plan - Significant obstipation Continue aggressive bowel regimen - Asymptomatic bacteriuria. No antibiotics needed - Type II lactic acidosis. No clinical overt evidence of infection - Primary osteoarthritis Pain medication as needed - Essential hypertension Cardizem CD Lopressor - Seizure disorder Keppra - Atrial fibrillation history Cardizem CD. Lopressor. Xarelto - Right lung mass 3 cm Given patient's comorbidities and poor functional status probably need further workup will not be too fruitful. Pulmonology evaluated, recommended CT chest with contrast - Chronic pain Lyrica. [place]. - Left arm contracture - Bilateral foot drop - Severe cognitive impairment from underlying dementia Labs and medication were reviewed.. Continue same treatment. Continue with symptomatic treatment. Resume home medication. Monitor labs and vitals. DVT and GI prophylaxis. Further recommendations as per clinical course of the pat ient Dictation was produced using [employer] dictation software. please excuse any grammatical, word or spelling errors. Objective - Vital Signs Vital signs: Vital Signs Temp 98.2 F 10/14/24 08:00 Pulse 58 L 10/14/24 08:00 Resp 17 10/14/24 08:00 BP 145/75 10/14/24 08:00 Pulse Ox 100 10/14/24 08:00 FiO2 Intake & Output 10/13/24 10/14/24 10/14/24 18:59 06:59 18:59 Intake Total 300 100 Output Total 1500 Balance -1200 100 Intake: Oral 300 100 Output: Urine 1500 Other: Voiding Method External Catheter Diaper Diaper # Voids 6 # Bowel Movements 3 - Labs CBC & Chem 7: 10/14/24 03:32 10/14/24 03:32 Labs: Abnormal Lab Results - Last 24 Hours (Table) 10/14/24 10/14/24 Range/Units 03:32 03:32 RBC 4.03 L (4.10-5.20) X 10*6/uL Hgb 11.3 L (12.0-15.0) g/dL Hct 36.3 L (37.2-46.3) % MCHC 31.1 L (32.0-37.0) g/dL RDW 15.0 H (11.5-14.5) % Potassium 3.4 L (3.5-5.5) mmol/L Calcium 7.9 L (8.7-10.3) mg/dL Total Protein 5.5 L (6.2-8.2) g/dL Albumin 3.3 L (3.8-4.9) g/dL Albumin/Globulin Ratio 1.50 L (1.60-3.17) Ratio Microbiology - Last 24 Hours (Table) 10/12/24 02:25 Urine Culture - Final Urine,Voided
[2024-10-14] MEDS: POTASSIUM CHLORIDE ER 20 MEQ TAB.ER PO STA (13:56)
--- NOTE | 2024-10-14 14:35 | P.PN ---
Subjective Progress Note Date: 10/14/24 This is a 74-year-old female patient, extremely debilitated related to previous CVA and dementia. The patient has chronic left-sided hemiplegia with contractures and the patient is nonambulatory and she is a [facility] resident. She has chronic contractures involving the left upper and left lower extremity. She is essentially bedridden. She has also cognitive impairment related to dementia. She presents from [facility] for some abdominal pain and and patient has not had a bowel movement for several days. Based on that, CAT scan of the abdomen and pelvis was done and a CAT scan showed a right lower lobe mass measuring 3 cm in size. There is also diverticulosis without diverticulitis. No evidence of any bowel obstruction. No intraperitoneal air. Patient is post hysterectomy and cholecystectomy. She is currently on room air oxygen. Denies having any shortness of breath. She is a former smoker. Pulse ox 96% room air oxygen. Afebrile. Lactic acid level was at 2.6 To 1.5. UA Is Abnormal with 43 WBCs, 10 RBCs, Rare Yeast, and the Chemistry Is within Normal Limits. Normal Electrolytes. Normal Renal Function. White Cell Count Is 6.8 with a Hemoglobin of 12.5. Patient Is Being Given Laxatives. No Previous History of Lung Cancer. No respiratory distress. No hemoptysis. No pleurisy. No aspiration. On 10/13/2024 patient started having some bowel movement activity. No nausea or vomiting. No abdominal pain. Afebrile. Room air pulse ox 98%. Hemodynamically stable. Lactic acid level was down to 1.5. No new labs are available from today. Cultures from the urine are still negative. Patient is on Symbicort. Patient is on long-term anticoagulation with Xarelto. Remains on normal saline at 75 cc an hour. Rest of the home medications have been resumed.. On 10/14/2024, the patient is resting comfortably in bed. Afebrile. He is on 2 L of oxygen by nasal cannula. CAT scan of the chest was completed and it shows 2 lung masses including a 2.6 cm right upper lobe mass posteriorly and another 3 cm mass in the right infrahilar region. Those are suspicious for malignancy. Left lung is clear. Patient was made aware. No plans for bronchoscopy. This is taking account the patient's extremely poor performance and functional status. Objective - Vital Signs Vital signs: Vital Signs Temp 98.2 F 10/14/24 08:00 Pulse 58 L 10/14/24 08:00 Resp 17 10/14/24 08:00 BP 145/75 10/14/24 08:00 Pulse Ox 100 10/14/24 08:00 FiO2 Intake & Output 10/13/24 10/14/24 10/14/24 18:59 06:59 18:59 Intake Total 300 100 Output Total 1500 Balance -1200 100 Intake: Oral 300 100 Output: Urine 1500 Other: Voiding Method External Catheter Diaper Diaper # Voids 6 # Bowel Movements 3 - Exam GENERAL: BMI 30, lying bed awake a bit tired. The patient is currently on room air oxygen. No respiratory distress. No agitation. The patient is currently on 2 L of oxygen by nasal cannula EYES: Pupils equal. Conjunctiva justo HEENT: External appearance of nose and ears normal, oral cavity grossly normal. NECK: JVD not raised; masses not palpable. HEART: First and second heart sounds are normal; no edema. LUNGS: Respiratory rate normal; clear to auscultation. ABDOMEN: Soft, nontender, liver spleen not palpable, no masses palpable. PSYCH: Patient is able to answer some simple questions l. MUSCULOSKELETAL:No Clubbing/cyanosis;muscles-grossly intact NEUROLOGICAL: Cranial nerves grossly intact; no facial asymmetry, left arm contracture. Bilateral foot drop. Chronic left-sided hemiplegia with contractures and the patient is cognitive impairment related to chronic right dementia. Poor insight in her condition. LYMPHATICS: No lymph nodes palpable in the axilla and neck - Labs CBC & Chem 7: 10/14/24 03:32 10/14/24 03:32 Labs: Abnormal Lab Results - Last 24 Hours (Table) 10/14/24 10/14/24 Range/Units 03:32 03:32 RBC 4.03 L (4.10-5.20) X 10*6/uL Hgb 11.3 L (12.0-15.0) g/dL Hct 36.3 L (37.2-46.3) % MCHC 31.1 L (32.0-37.0) g/dL RDW 15.0 H (11.5-14.5) % Potassium 3.4 L (3.5-5.5) mmol/L Calcium 7.9 L (8.7-10.3) mg/dL Total Protein 5.5 L (6.2-8.2) g/dL Albumin 3.3 L (3.8-4.9) g/dL Albumin/Globulin Ratio 1.50 L (1.60-3.17) Ratio Microbiology - Last 24 Hours (Table) 10/12/24 02:25 Urine Culture - Final Urine,Voided Assessment and Plan Plan: Lung masses involving a 2 cm in the right upper lobe and 3 cm in the right lower lobe mass, incidental finding identified on a CAT scan of the abdomen done as part of workup for abdominal pain and constipation. 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 Hypertension Seizure disorder Chronic A-fib maintained on a combination of Lopressor and Cardizem CD and anticoagulation with Xarelto Chronic pain History of CVA with chronic debility and left-sided hemiplegia with contractures involving the left upper and left lower extremity and the patient is nonambulatory Dementia with impairment cognitive functions Asymptomatic bacteriuria Degenerative arthritis [facility] resident Former smoker Plan Condition is stable. Respiratory status also stable. CAT scan of the chest was noted and is consistent with possibility of primary bronchogenic carcinoma. Very poor insight on her condition. She has cognitive impairments and chronic debility related to her previous CVA and chronic contractures in her left upper extremity and the patient essentially bedridden [facility] resident. Will manage her conservatively. Recommend outpatient follow-up. No plans for biopsy at this point in time. May consider biopsy if her condition changes. No active pulmonary critical care issues at this point.
[2024-10-15] MEDS: ACETAMINOPHEN TAB 325 MG TAB PO PRN (08:53)
[2024-10-15 09:10] VITALS: BP 133/71; PULSE 60; RESP 18; TEMP 97.9
--- NOTE | 2024-10-15 13:43 | P.PN ---
Subjective Progress Note Date: 10/15/24 SURGICAL PROGRESS NOTE CHIEF COMPLAINT: Constipation HISTORY OF PRESENT ILLNESS: Patient denies any abdominal pain. She is having bowel movements. She did have 4 bowel movements yesterday. Denies any nausea or vomiting. Afebrile. Patient scheduled for discharge today PHYSICAL EXAM: VITAL SIGNS: Reviewed. GENERAL: Well-developed in no acute distress. ABDOMEN: Soft. Nondistended. Nontender. NEUROLOGIC: Alert and oriented. Cranial nerves II through XII grossly intact. ASSESSMENT: 1. Constipation PLAN: - Constipation improved. Patient having bowel movements. Patient tolerating diet. She is stable for discharge. - Recommend continue a good bowel regimen at home. Physician Forming Operator note has been reviewed by physician. Signing provider agrees with the documented findings, assessment, and plan of care. Objective - Vital Signs Vital signs: Vital Signs Temp 97.9 F 10/15/24 08:00 Pulse 60 10/15/24 08:00 Resp 18 10/15/24 08:00 BP 133/71 10/15/24 08:00 Pulse Ox 94 L 10/15/24 09:33 FiO2 Intake & Output 10/14/24 10/15/24 10/15/24 18:59 06:59 18:59 Intake Total 300 200 Balance 300 200 Intake: Oral 300 200 Other: Voiding Method Diaper Diaper Diaper # Voids 3 2 # Bowel Movements 1 1 - Labs CBC & Chem 7: 10/14/24 03:32 10/14/24 03:32
--- NOTE | 2024-10-15 14:09 | P.DS ---
Providers Date of admission: 10/12/24 03:33 Expected date of discharge: 10/15/24 Attending physician: Ruben Werner Consults: 10/12/24 17:57 Consult Physician Routine Consulting Provider: Jasbir Houston Consult Reason/Comments: Right lung mass Do you want consulting provider notified?: Yes 10/13/24 14:58 Consult Physician Routine Consulting Provider: Mehran Jackson Consult Reason/Comments: Obstipation Do you want consulting provider notified?: Yes Primary care physician: Anand Coe [facility] Course: Discharge diagnoses; - Significant obstipation Continue aggressive bowel regimen - Asymptomatic bacteriuria. No antibiotics needed - Type II lactic acidosis. No clinical overt evidence of infection - Primary osteoarthritis Pain medication as needed - Essential hypertension Cardizem CD Lopressor - Seizure disorder Keppra - Atrial fibrillation history Cardizem CD. Lopressor. Xarelto - Right lung mass 3 cm CAT scan of the chest was completed and it shows 2 lung masses including a 2.6 cm right upper lobe mass posteriorly and another 3 cm mass in the right infrahilar region. Those are suspicious for malignancy. Left lung is clear. Pulmonology discussed with patient, patient was made aware, no plans for bronchoscopy at this time, this is taking in account the patient's extremely poor performance and functional status,chronic debility related to her previous CVA and chronic contractures in her left upper extremity and the patient essentially bedridden snf resident. - Chronic pain Lyrica. [place]. - Left arm contracture - Bilateral foot drop - Severe cognitive impairment from underlying dementia Hospital course; 74-year-old patient, resident of [facility] being followed by Dr. Coe. Patient was sent in for abdominal pain. Apparently has not had a bowel movement for few days. Denies any nausea vomiting. Patient is a poor historian. I had the radiologist look at the CT scan and also abdominal x-ray ordered today. Did show moderate stool. 10/13. Patient seen examined. Did start having bowel movement. Denies abdominal pain. Vital signs stable 10/14. Patient seen examined. Labs reviewed showing WBCs 0.05, hemoglobin 11.3, platelet count 229, sodium 142, potassium 3.4, BUN 10, creatinine 0.6. Surgery evaluated, added lactulose to the bowel regimen 10/15. Patient seen and examined. CAT scan of the chest was completed and it shows 2 lung masses including a 2.6 cm right upper lobe mass posteriorly and another 3 cm mass in the right infrahilar region. Those are suspicious for mal ignancy. Left lung is clear. Pulmonology discussed with patient, patient was made aware, no plans for bronchoscopy at this time, this is taking in account the patient's extremely poor performance and functional status,chronic debility related to her previous CVA and chronic contractures in her left upper extremity and the patient essentially bedridden snf resident. Had called patient's daughter, updated her about the CT scan results and discussed with her regarding any treatment option, at this time daughter understands that the patient has expressed to her in the past that she does not want any aggressive treatment, at this time she wants to hold off on any aggressive diagnostic procedures. PHYSICAL EXAMINATION: GENERAL: The patient is alert, ill looking HEENT: Pupils are round and equally reacting to light. EOMI. No scleral icterus. No conjunctival pallor. Normocephalic, atraumatic. No pharyngeal erythema. No thyromegaly. CARDIOVASCULAR: S1 and S2 present. No murmurs, rubs, or gallops. PULMONARY: Chest is clear to auscultation, no wheezing or crackles. ABDOMEN: Soft, nontender, nondistended, normoactive bowel sounds. No palpable organomegaly. MUSCULOSKELETAL: No joint swelling or deformity. EXTREMITIES: No cyanosis, clubbing, or pedal edema. NEUROLOGICAL: Gross neurological examination did not reveal any focal deficits. SKIN: No rashes. Dictation was produced using [employer] dictation software. please excuse any grammatical, word or spelling errors. Patient Condition at Discharge: Fair Plan - Discharge Summary New Discharge Prescriptions: New Lactulose [Cephulac] 30 gm PO BID #600 ml Psyllium Husk 100% [Metamucil Packet] 6 gm PO BID 15 Days #30 packet Continue tiZANidine [Zanaflex] 2 mg PO Q8HR PRN PRN Reason: Muscle Spasm Magnesium Hydroxide [Milk of Magnesia Concentrate] 7,200 mg PO DAILY PRN PRN Reason: Constipation bisacodyL [Dulcolax] 10 mg RECTAL DAILY PRN PRN Reason: Constipation Menthol [Biofreeze] 1 spray TOPICAL Q4H PRN PRN Reason: Pain Acetaminophen [Tylenol] 650 mg PO Q6H PRN PRN Reason: Pain Or Fever > 100.5 Sennosides [Senokot] 17.2 mg PO BID@0800,1700 Metoprolol Tartrate [Lopressor] 12.5 mg PO BID Fluticasone Propion/Salmeterol [Advair 250-50 Diskus] 1 inhalation PO RT-BID Pravastatin Sodium [Pravachol] 20 mg PO HS Potassium Chloride [Klor-Con M10] 10 meq PO DAILY Lactobacillus Acidophilus [Acidophilus] 1 cap PO DAILY dilTIAZem HCL [Cardizem CD] 120 mg PO Q24HR HYDROcodone/APAP 5-325MG [[place] 5-325] 1 tab PO Q6H PRN #12 tab PRN Reason: Pain Na Phos,M-B/Na Phos,Di-Ba [Fleet Adult] 133 ml RECTAL DAILY PRN PRN Reason: Constipation Baclofen [Lioresal] 10 mg PO TID@0800,1200,1700 levETIRAcetam [Keppra] 500 mg PO BID@0800,1700 Rivaroxaban [Xarelto] 10 mg PO DAILY Ensure Enlive 120 ml PO BID@0800,1700 Omeprazole [PriLOSEC] 20 mg PO DAILY Naloxegol Oxalate [Movantik] 12.5 mg PO DAILY DULoxetine HCL [Cymbalta] 20 mg PO DAILY Aspirin EC [Ecotrin Low Dose] 81 mg PO DAILY Pregabalin [Lyrica] 150 mg PO BID 3 Days #6 cap Discharge Medication List Acetaminophen [Tylenol] 650 mg PO Q6H PRN 10/12/24 [History] Aspirin EC [Ecotrin Low Dose] 81 mg PO DAILY 10/12/24 [History] Baclofen [Lioresal] 10 mg PO TID@0800,1200,1700 10/12/24 [History] DULoxetine HCL [Cymbalta] 20 mg PO DAILY 10/12/24 [History] Ensure Enlive 120 ml PO BID@0800,1700 10/12/24 [History] Fluticasone Propion/Salmeterol [Advair 250-50 Diskus] 1 inhalation PO RT-BID 10/12/24 [History] Lactobacillus Acidophilus [Acidophilus] 1 cap PO DAILY 10/12/24 [History] Magnesium Hydroxide [Milk of Magnesia Concentrate] 7,200 mg PO DAILY PRN 10/12/24 [History] Menthol [Biofreeze] 1 spray TOPICAL Q4H PRN 10/12/24 [History] Metoprolol Tartrate [Lopressor] 12.5 mg PO BID 10/12/24 [History] Na Phos,M-B/Na Phos,Di-Ba [Fleet Adult] 133 ml RECTAL DAILY PRN 10/12/24 [History] Naloxegol Oxalate [Movantik] 12.5 mg PO DAILY 10/12/24 [History] Omeprazole [PriLOSEC] 20 mg PO DAILY 10/12/24 [History] Potassium Chloride [Klor-Con M10] 10 meq PO DAILY 10/12/24 [History] Pravastatin Sodium [Pravachol] 20 mg PO HS 10/12/24 [History] Rivaroxaban [Xarelto] 10 mg PO DAILY 10/12/24 [History] Sennosides [Senokot] 17.2 mg PO BID@0800,1700 10/12/24 [History] bisacodyL [Dulcolax] 10 mg RECTAL DAILY PRN 10/12/24 [History] dilTIAZem HCL [Cardizem CD] 120 mg PO Q24HR 10/12/24 [History] levETIRAcetam [Keppra] 500 mg PO BID@0800,1700 10/12/24 [History] tiZANidine [Zanaflex] 2 mg PO Q8HR PRN 10/12/24 [History] HYDROcodone/APAP 5-325MG [[place] 5-325] 1 tab PO Q6H PRN #12 tab 10/15/24 [Rx] Lactulose [Cephulac] 30 gm PO BID #600 ml 10/15/24 [Rx] Pregabalin [Lyrica] 150 mg PO BID 3 Days #6 cap 10/15/24 [Rx] Psyllium Husk 100% [Metamucil Packet] 6 gm PO BID 15 Days #30 packet 10/15/24 [Rx] Follow up Appointment(s)/Referral(s): Anand Coe DO [Primary Care Provider] - 1-2 days (ECF please call for follow-up appointment.) Jasbir Houston MD [STAFF PHYSICIAN] - 10/24/24 1:00 pm Discharge Disposition: TRANSFER TO SNF/ECF
== END 2024-10-15 14:13 ==
LOC: EC 21:15 → 5NMEDONC 10-12 03:33 → EEVIPCON 10-12 03:33 → 5NMEDONC 10-12 06:10 → 4SSUR 10-12 22:56
PROVIDERS: ADMIT Hospitalist; ATTEND Hospitalist
DX: K59.00 Constipation, unspecified (principal); E87.20 Acidosis, unspecified; N39.0 Urinary tract infection, site not specified; R91.8 Other nonspecific abnormal finding of lung field; F03.90 Unspecified dementia, unspecified severity, without behavioral disturbance, psychotic disturbance, mood disturbance, and anxiety; I10 Essential (primary) hypertension; E78.5 Hyperlipidemia, unspecified; K59.09 Other constipation; G40.909 Epilepsy, unspecified, not intractable, without status epilepticus; I48.20 Chronic atrial fibrillation, unspecified; G89.29 Other chronic pain; M19.91 Primary osteoarthritis, unspecified site; M21.371 Foot drop, right foot; M21.372 Foot drop, left foot; M24.59 Contracture, other specified joint; I69.354 Hemiplegia and hemiparesis following cerebral infarction affecting left non-dominant side; Z87.891 Personal history of nicotine dependence; Z79.01 Long term (current) use of anticoagulants; Z79.82 Long term (current) use of aspirin; Z79.899 Other long term (current) drug therapy
CPT/HCPCS: 96361 ×3; 96374; 99285; 36415; 94640 ×7; 94760; 86900; 86901; 80053 ×2; 82150; 83605 ×2; 83690; 85025 ×2; 85610; 85730; 86850; 81001; 87086; 74019; 71260; 74176; G0378 ×5; J0696; Q9967

== ENCOUNTER 2024-10-17 21:41 | Inpatient (IN) | payer MEDICARE, OTHER ==
--- NOTE | 2024-10-17 22:15 | ED ---
General Adult HPI - General Chief complaint: Altered Mental Status Stated complaint: Stroke Time Seen by Provider: 10/17/24 21:43 Source: EMS Mode of arrival: EMS - History of Present Illness Initial comments: Dictation was produced using [employer] dictation software. please excuse any grammatical, word or spelling errors. Chief Complaint: 74-year-old female history of dementia and left-sided weakness from previous CVA presents to the ER for altered mental status for over 24 hours History of Present Illness: History of present illness obtained from EMS. Patient allegedly at residential was found to be altered yesterday. Patient is DNR. According to residential documentation patient has history of chronic left hemiplegia from suffered CVA. Apparently she has been altered and new onset aphasia approximately 24 hours ago. Patient unable to write history present illness due to status. Allegedly patient has history of dementia. Unable to obtain ROS secondary mental status - Related Data Home Medications Medication Instructions Recorded Confirmed Acetaminophen [Tylenol] 650 mg PO Q6H PRN 10/12/24 10/12/24 Aspirin EC [Ecotrin Low Dose] 81 mg PO DAILY 10/12/24 10/12/24 Baclofen [Lioresal] 10 mg PO TID@0800,1200,1700 10/12/24 10/12/24 DULoxetine HCL [Cymbalta] 20 mg PO DAILY 10/12/24 10/12/24 Ensure Enlive 120 ml PO BID@0800,1700 10/12/24 10/12/24 Fluticasone Propion/Salmeterol 1 inhalation PO RT-BID 10/12/24 10/12/24 [Advair 250-50 Diskus] Lactobacillus Acidophilus 1 cap PO DAILY 10/12/24 10/12/24 [Acidophilus] Magnesium Hydroxide [Milk of 7,200 mg PO DAILY PRN 10/12/24 10/12/24 Magnesia Concentrate] Menthol [Biofreeze] 1 spray TOPICAL Q4H PRN 10/12/24 10/12/24 Metoprolol Tartrate [Lopressor] 12.5 mg PO BID 10/12/24 10/12/24 Na Phos,M-B/Na Phos,Di-Ba [Fleet 133 ml RECTAL DAILY PRN 10/12/24 10/12/24 Adult] Naloxegol Oxalate [Movantik] 12.5 mg PO DAILY 10/12/24 10/12/24 Omeprazole [PriLOSEC] 20 mg PO DAILY 10/12/24 10/12/24 Potassium Chloride [Klor-Con M10] 10 meq PO DAILY 10/12/24 10/12/24 Pravastatin Sodium [Pravachol] 20 mg PO HS 10/12/24 10/12/24 Rivaroxaban [Xarelto] 10 mg PO DAILY 10/12/24 10/12/24 Sennosides [Senokot] 17.2 mg PO BID@0800,1700 10/12/24 10/12/24 bisacodyL [Dulcolax] 10 mg RECTAL DAILY PRN 10/12/24 10/12/24 dilTIAZem HCL [Cardizem CD] 120 mg PO Q24HR 10/12/24 10/12/24 levETIRAcetam [Keppra] 500 mg PO BID@0800,1700 10/12/24 10/12/24 tiZANidine [Zanaflex] 2 mg PO Q8HR PRN 10/12/24 10/12/24 Previous Rx's Medication Instructions Recorded HYDROcodone/APAP 5-325MG [[place] 1 tab PO Q6H PRN #12 tab 10/15/24 5-325] Lactulose [Cephulac] 30 gm PO BID #600 ml 10/15/24 Pregabalin [Lyrica] 150 mg PO BID 3 Days #6 cap 10/15/24 Psyllium Husk 100% [Metamucil 6 gm PO BID 15 Days #30 packet 10/15/24 Packet] Allergies Allergy/AdvReac Type Severity Reaction Status Date / Time No Known Allergies Allergy Verified 10/17/24 21:51 Review of Systems ROS Statement: Those systems with pertinent positive or pertinent negative responses have been documented in the HPI. ROS Other: All systems not noted in ROS Statement are negative. Past Medical History Past Medical History: Atrial Fibrillation, CVA/TIA, Hyperlipidemia, Hypertension Additional Past Medical History / Comment(s): Seizure disorder, A-fib History of Any Multi-Drug Resistant Organisms: Unobtainable Past Surgical History: Unable to Obtain Past Anesthesia/Blood Transfusion Reactions: Unable to Obtain Smoking Status: Unknown if ever smoked Past Alcohol Use History: Unable to Obtain Past Drug Use History: Unable to Obtain General Exam - General Exam Comments Initial Comments: PHYSICAL EXAM: General Impression: Alert, not in acute distress following commands HEENT: Normocephalic atraumatic, extra-ocular movements intact, pupils equal and reactive to light bilaterally, mucous membranes moist. Cardiovascular: Heart regular rate and rhythm Chest: no retractions, no tachypnea Abdomen: abdomen soft, non-tender, non-distended, no organomegaly Musculoskeletal: Pulses present and equal in all extremities, no peripheral e estuardo Motor: no focal deficits noted Neurological: CN II-XII grossly intact Skin: Intact with no visualized rashes Course Vital Signs 10/17/24 10/17/24 10/18/24 21:44 22:53 01:05 Temperature 98.8 F Pulse Rate 65 61 58 L Respiratory 20 18 18 Rate Blood Pressure 147/99 117/71 156/57 O2 Sat by Pulse 97 97 90 L Oximetry EKG Findings - EKG Comments: EKG Findings:: My EKG interpretation: Ventricular rate 62, sinus rhythm, PA 173, QRS 85, QTc 436. No PA prolongation, no QTC prolongation, no ST or T-wave changes noted. Overall, this EKG is unremarkable Medical Decision Making - Medical Decision Making Was pt. sent in by a medical professional or institution (, PA, BELL PERSON, urgent care, hospital, or residential...) When possible be specific @ -[No] Did you speak to anyone other than the patient for history (EMS, parent, family, police, friend...)? What history was obtained from this source @ -See above Did you review nursing and triage notes (agree or disagree)? Why? @ -[I reviewed and agree with nursing and triage notes] Were old charts reviewed (outside hosp., previous admission, EMS record, old EKG, old radiological studies, urgent care reports/EKG's, residential records)? Report findings @ -[No old charts were reviewed] Differential Diagnosis (chest pain, altered mental status, abdominal pain women, abdominal pain men, vaginal bleeding, musculoskeletal, weakness, fever, dyspnea, syncope, headache, dizziness, GI bleed, back pain, seizure, CVA, palpatations, mental health)? @ -Differential Altered Mental Status: Hypoglycemia, DKA, hypercapnia, ETOH, overdose, CO poisoning, trauma, myxedema coma, HTN encephalopathy, infection, encephalitis, psychosis, intercranial hemorrhage, hepatic encephalopathy, meningitis, CVA, this is not meant to be an all-inclusive list EKG interpreted by me (3pts min.). @ -See above X-rays interpreted by me (1pt min.). @ -Chest x-ray is nonacute CT interpreted by me (1pt min.). @ -CT noncontrast shows no bleed. CT angiography shows faint enhancement of the distal right vertebral artery U/S interpreted by me (1pt. min.). @ -[None done] What testing was considered but not performed or refused? (CT, X-rays, U/S, labs)? Why? @ -[None] What meds were considered but not given or refused? Why? @ -[None] Was smoking cessation discussed for >3mins.? @ -[No] Were there social determinants of health that impacted care today? How? (Homeles sness, low income, unemployed, alcoholism, drug addiction, transportation, low edu. Level, literacy, decrease access to med. care, half-way, rehab)? @ -[No] Was there de-escalation of care discussed even if they declined (Discuss DNR or withdrawal of care, Hospice)? DNR status @ -Patient is DNR What co-morbidities impacted this encounter? (DM, HTN, Smoking, COPD, CAD, Cancer, CVA, ARF, Chemo, Hep., AIDS, mental health diagnosis, sleep apnea, morbid obesity)? @ -Dementia Was patient admitted / discharged? Hospital course, mention meds given and route, prescriptions, significant lab abnormalities, going to OR and other pertinent info. @ -[age]-year-old female with dementia presents to the emergency department for altered mental status. Patient last known normal was greater than 24 hours prio r to arrival. Not a candidate for aggressive stroke treatment. Furthermore patient is no code. Vital signs upon arrival are within acceptable limits. Patient encephalopathic at the bedside. Labs unremarkable. Imaging study shows no obvious findings. Pending urine studies. Will be admitted to hospital with neurology consultation. Case discussed with hospitalist for admission Did you discuss the management of the patient with other professionals (professionals i.e. , PA, BELL PERSON, lab, RT, psych nurse, social worker psychiatric, cheese blender, teacher, family preservation officer, case therapist)? Give summary @ -As above Was critical care preformed (if so, how long)? @ -[No] Undiagnosed new problem with uncertain prognosis? @ -[No] Drug Therapy requiring intensive monitoring for toxicity (Heparin, Nitro, Insulin, Cardizem)? @ -[No] Were any procedures done? @ -[No] Diagnosis/symptom? Acute, or Chronic, or Acute on Chronic? Uncomplicated (without systemic symptoms) or Complicated (systemic symptoms)? @ -Altered mental status Side effects of treatment? @ -[No] Exacerbation, Progression, or Severe Exacerbation? @ -[No] Poses a threat to life or bodily function? How? (Chest pain, USA, SD, pneumonia, PE, COPD, DKA, ARF, appy, cholecystitis, CVA, Diverticulitis, Homicidal, Suicidal, threat to staff... and all critical care pts) @ yes - Lab Data Result diagrams: 10/17/24 22:25 10/17/24 22: Lab Results 10/17/24 10/17/24 10/17/24 Range/Units 22:25 22:25 22:25 WBC 7.35 (4.50-10.00) 10*3/uL RBC 4.34 (4.10-5.20) 10*6/uL Hgb 12.6 (12.0-15.0) g/dL Hct 37.7 (37.2-46.3) % MCV 86.9 (80.0-97.0) fL MCH 29.0 (27.0-32.0) pg MCHC 33.4 (32.0-37.0) g/dL Plt Count 257 (140-440) 10*3/uL MPV 9.8 (9.5-12.2) fL Immature Gran % (Auto) 0.3 % Neutrophils % 54.3 % Lymphocytes % 33.9 % Monocytes % 11.2 % Eosinophils % 0.0 % Basophils % 0.3 % Immature Gran # 0.02 (0.00-0.04) 10*3/uL Neutrophils # 4.00 (1.80-7.70) 10*3/uL Lymphocytes # 2.49 (0.90-5.00) 10*3/uL Monocytes # 0.82 (0.20-1.00) 10*3/uL Eosinophils # 0.00 L (0.04-0.35) 10*3/uL Basophils # 0.02 (0.00-0.10) 10*3/uL Sodium 142 (137-145) mmol/L Potassium 3.5 (3.5-5.1) mmol/L Chloride 106 (98-107) mmol/L Carbon Dioxide 25 (22-30) mmol/L Anion Gap 11 mmol/L BUN 13 (7-17) mg/dL Creatinine 0.66 (0.52-1.04) mg/dL Est GFR (CKD-EPI)AfAm >90 (>60 ml/min/1.73 sqM) Est GFR (CKD-EPI)NonAf 86 (>60 ml/min/1.73 sqM) Glucose 98 (74-99) mg/dL Plasma Lactic Acid Stephen 0.9 (0.7-2.0) mmol/L Calcium 9.4 (8.4-10.2) mg/dL Magnesium 2.2 (1.6-2.3) mg/dL Total Bilirubin 0.6 (0.2-1.3) mg/dL AST 18 (14-36) U/L ALT 13 (4-34) U/L Alkaline Phosphatase 85 (38-126) U/L Troponin I (0.000-0.034) ng/mL Total Protein 6.6 (6.3-8.2) g/dL Albumin 3.7 (3.5-5.0) g/dL / Range/Units 22:25 WBC (4.50-10.00) 10*3/uL RBC (4.10-5.20) 10*6/uL Hgb (12.0-15.0) g/dL Hct (37.2-46.3) % MCV (80.0-97.0) fL MCH (27.0-32.0) pg MCHC (32.0-37.0) g/dL Plt Count (140-440) 10*3/uL MPV (9.5-12.2) fL Immature Gran % (Auto) % Neutrophils % % Lymphocytes % % Monocytes % % Eosinophils % % Basophils % % Immature Gran # (0.00-0.04) 10*3/uL Neutrophils # (1.80-7.70) 10*3/uL Lymphocytes # (0.90-5.00) 10*3/uL Monocytes # (0.20-1.00) 10*3/uL Eosinophils # (0.04-0.35) 10*3/uL Basophils # (0.00-0.10) 10*3/uL Sodium (137-145) mmol/L Potassium (3.5-5.1) mmol/L Chloride (98-107) mmol/L Carbon Dioxide (22-30) mmol/L Anion Gap mmol/L BUN (7-17) mg/dL Creatinine (0.52-1.04) mg/dL Est GFR (CKD-EPI)AfAm (>60 ml/min/1.73 sqM) Est GFR (CKD-EPI)NonAf (>60 ml/min/1.73 sqM) Glucose (74-99) mg/dL Plasma Lactic Acid Stephen (0.7-2.0) mmol/L Calcium (8.4-10.2) mg/dL Magnesium (1.6-2.3) mg/dL Total Bilirubin (0.2-1.3) mg/dL AST (14-36) U/L ALT (4-34) U/L Alkaline Phosphatase (38-126) U/L Troponin I <0.012 (0.000-0.034) ng/mL Total Protein (6.3-8.2) g/dL Albumin (3.5-5.0) g/dL Disposition Clinical Impression: Altered mental status Disposition: ADMITTED IP TO THIS [facility] Condition: Fair Referrals: Anand Coe DO [Primary Care Provider] - 1-2 days Decision Time: 02:01
[2024-10-17 22:36] LABS: Basophils # (A) 0.02 10*3/uL (0.00-0.10); Basophils % (A) 0.3 %; HCT 37.7 % (37.2-46.3); HGB 12.6 g/dL (12.0-15.0); Lymphocytes # (A) 2.49 10*3/uL (0.90-5.00); Lymphocytes % (A) 33.9 %; MCHC 33.4 g/dL (32.0-37.0); MCV 86.9 fL (80.0-97.0); Mean Platelet Volume 9.8 fL (9.5-12.2); Monocytes # (A) 0.82 10*3/uL (0.20-1.00); Monocytes % (A) 11.2 %; Neutrophils % (A) 54.3 %; Platelet Count 257 10*3/uL (140-440); RBC 4.34 10*6/uL (4.10-5.20); RDW 14.7 % (11.5-14.5); WBC 7.35 10*3/uL (4.50-10.00)
[2024-10-17 22:56] LABS: ALT 13 U/L (4-34); AST 18 U/L (14-36); African American GFR (CKD) >90 (>60 ml/min/1.73 sqM); Albumin 3.7 g/dL (3.5-5.0); Alkaline Phosphatase 85 U/L (38-126); Anion Gap 11 mmol/L; Blood Urea Nitrogen 13 mg/dL (7-17); Calcium 9.4 mg/dL (8.4-10.2); Carbon Dioxide 25 mmol/L (22-30); Chloride 106 mmol/L (98-107); Glucose 98 mg/dL (74-99); Magnesium 2.2 mg/dL (1.6-2.3); Non-African American GFR(CKD) 86 (>60 ml/min/1.73 sqM); Potassium 3.5 mmol/L (3.5-5.1); Sodium 142 mmol/L (137-145); Total Bilirubin 0.6 mg/dL (0.2-1.3); Total Protein 6.6 g/dL (6.3-8.2)
--- NOTE | 2024-10-18 00:13 | XR ---
EXAM: XR Chest, 1 View CLINICAL HISTORY: AMS TECHNIQUE: Frontal view of the chest. COMPARISON: CT chest 10/14/2024 FINDINGS: Lungs: Shallow inspiration. The airspace opacity involving the posterior right upper lobe noted on the CT examination persists. The perihilar vasculature appears somewhat prominent and equalized. Pleural space: Unremarkable. No pneumothorax. No large pleural effusion. Heart: Unremarkable. No cardiomegaly. Mediastinum: The mediastinal contours are thought to be unremarkable, accounting for obliquity. No tracheal deviation. Bones/joints: Degenerative changes of the right shoulder. No acute osseous abnormality. IMPRESSION: The airspace opacity involving the posterior right upper lobe noted on the CT examination persists. The perihilar vasculature appears somewhat prominent and equalized.
--- NOTE | 2024-10-18 00:18 | CT ---
EXAM: CT Head Without Intravenous Contrast CLINICAL HISTORY: ams TECHNIQUE: Axial computed tomography images of the head/brain without intravenous contrast. CTDI is 48.8 mGy and DLP is 1175 mGy-cm. This CT exam was performed using one or more of the following dose reduction techniques: automated exposure control, adjustment of the mA and/or kV according to patient size, and/or use of iterative reconstruction technique. COMPARISON: No relevant prior studies available. FINDINGS: Brain: Chronic encephalomalacia involving the right posterior MCA territory, predominantly involving the right parietal region, but also involving the lateral right posterior basal ganglia and the insular and temporal lobes. No acute intracranial hemorrhage. Diffuse mild parenchymal involutional changes with prominence of the cerebral sulci and sylvian fissures. Scattered deep white matter hypodense changes. Ventricles: Ex vacuo dilatation of the right lateral ventricle. No midline shift or effacement of the ventricles. Bones/joints: A left frontoparietal temporal craniotomy is noted. No acute fracture. Soft tissues: A surgical clip is noted in the region of the distal right M1 segment. Sinuses: Unremarkable as visualized. No acute sinusitis. Mastoid air cells: Left mastoid effusions noted. The right mastoid air cells are well aerated. IMPRESSION: 1. No acute intracranial hemorrhage. No significant mass-effect or midline shift. 2. 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 Large area of encephalomalacia involving the posterior right MCA territory. 3. Left mastoid effusions noted. The right mastoid air cells are well aerated. This is a presumed incidental finding.
--- NOTE | 2024-10-18 00:51 | CT ---
EXAM: CT Angiography Head With Intravenous Contrast CLINICAL HISTORY: Neurologic deficit TECHNIQUE: Axial computed tomographic angiography images of the head with intravenous contrast. CTDI is 16.8 mGy and DLP is 16.8 mGy-cm. This CT exam was performed using one or more of the following dose reduction techniques: automated exposure control, adjustment of the mA and/or kV according to patient size, and/or use of iterative reconstruction technique. MIP reconstructed images were created and reviewed. COMPARISON: Noncontrast examination performed earlier. FINDINGS: Right internal carotid artery: Atherosclerotic disease involving the distal right cavernous and internal carotid artery. No definite occlusion or significant stenosis. The petrous segment is patent. No aneurysm. Right anterior cerebral artery: Unremarkable. No occlusion or significant stenosis. No aneurysm. Right middle cerebral artery: Unremarkable. No occlusion or significant stenosis. No aneurysm. Right posterior cerebral artery: The proximal right posterior cerebral artery is small in caliber. No critical stenosis or occlusion however. No aneurysm. Right vertebral artery: There is only minimal faint enhancement of the atretic distal right vertebral artery. This is asymmetric from the enhancement pattern of the distal cervical segment suggesting that the transition from C1 to the foramen magnum. Left internal carotid artery: Atherosclerotic disease involving the distal left cavernous and proximal internal carotid artery. No critical stenosis or occlusion. The petrous segment is patent. No aneurysm. Left anterior cerebral artery: Unremarkable. No occlusion or significant stenosis. No aneurysm. Left middle cerebral artery: Unremarkable. No occlusion or significant stenosis. No aneurysm. Left posterior cerebral artery: Unremarkable. No occlusion or significant stenosis. No aneurysm. Left vertebral artery: The left vertebral artery demonstrates atherosclerotic disease. No occlusion or significant stenosis. Basilar artery: Unremarkable. No occlusion or significant stenosis. No aneurysm. Brain: The right M1 segment is small in caliber without focal critical stenosis. The right M2/M3 branches are patent within the large area of encephalomalacia. The proximal M2 branches lie immediately adjacent to the aneurysm clip. No abnormal enhancement within the large area of encephalomalacia. Bones/joints: The right-sided craniotomy is again noted. IMPRESSION: 1. There is only minimal faint enhancement of the atretic distal right vertebral artery. The left vertebral artery demonstrates atherosclerotic disease. This is asymmetric from the enhancement pattern of the distal cervical segment suggesting that the transition from C1 to the foramen magnum. The left vertebral artery demonstrates atherosclerotic disease but is patent. 2. The right M1 segment is small in caliber but is patent. The right M2/M3 branches are small in caliber but are patent, traversing the encephalomalacia of the right MCA territory adjacent to the aneurysm clip. 3. Otherwise negative intracranial CTA examination. EXAM: CT Angiography Neck With Intravenous Contrast CLINICAL HISTORY: Neurologic deficit TECHNIQUE: Routine carotid CT angiography protocol was performed with intravenous contrast. NASCET criteria using the distal ICAs for comparison were used for evaluation of stenoses. CTDI is 10.1 mGy and DLP is 417.3 mGy-cm. This CT exam was performed using one or more of the following dose reduction techniques: automated exposure control, adjustment of the mA and/or kV according to patient size, and/or use of iterative reconstruction technique. MIP reconstructed images were created and reviewed. COMPARISON: None. FINDINGS: VASCULATURE: Right common carotid artery: Unremarkable. No occlusion or significant stenosis. No dissection. Right internal carotid artery: Atherosclerotic disease involving the right carotid bifurcation without significant stenosis by NASCET criteria. The mid to distal internal carotid artery is patent. No dissection. Right external carotid artery: Unremarkable. No occlusion. Right vertebral artery: The right vertebral artery is small in caliber measuring only 1 mm throughout its course. No focal stenosis or occlusion. Left common carotid artery: Unremarkable. No occlusion or significant stenosis. No dissection. Left internal carotid artery: Atherosclerotic disease involving the left carotid bifurcation without significant stenosis by NASCET criteria. The mid to distal internal carotid artery is patent. No dissection. Left external carotid artery: Unremarkable. No occlusion. Left vertebral artery: The left vertebral artery is dominant and is patent. No occlusion or significant stenosis. No dissection. Brachiocephalic and subclavian arteries: There is a normal branching pattern of the proximal great vessels without significant ostial stenosis. Aorta: The aortic arch is patent. No dissection or significant aneurysm. Atherosclerotic calcification. NECK: Bones/joints: Unremarkable. No acute fracture. Soft tissues: Unremarkable. Thyroid: There is a hypoattenuating lesion in the right thyroid measuring 1.8 x 0.9 x 1.6 cm. Smaller nodules noted inferolaterally. Lung apices: Similar rounded soft tissue lesion involving the posterior right upper lobe, not appreciably changed from the prior examination. Detailed evaluation is limited by extensive respiratory artifact. CAROTID STENOSIS REFERENCE USING NASCET CRITERIA: % ICA stenosis = (1 - narrowest ICA diameter/diameter of distal cervical ICA) x 100. Mild - <50% stenosis. Moderate - 50-69% stenosis. Severe - 70-94% stenosis. Near occlusion - 95-99% stenosis. Occluded - 100% stenosis. IMPRESSION: 1. Atherosclerotic calcification of both carotid bifurcations without significant stenosis by NASCET criteria. The bilateral internal and common carotid arteries are otherwise patent. 2. Right vertebral artery is atretic throughout its course, measuring only 1 mm. No critical stenosis or occlusion. The left vertebral artery is dominant and is widely patent. 3. There is a hypoattenuating lesion in the right thyroid measuring 1.8 x 0.9 x 1.6 cm. Smaller nodules noted inferolaterally. Recommend nonemergent thyroid ultrasound, if not previously performed.
[2024-10-18] MEDS ORDERED: NALOXONE 0.4 MG/ML 1 ML VIAL IV PRN (01:57)
[2024-10-18] MEDS: MORPHINE SULFATE 4 MG/ML SYRINGE IV STA (02:18)
[2024-10-18] MEDS: SODIUM CHLORIDE 0.9% 1,000 ML IV SCH (02:19)
[2024-10-18 02:24] LABS: Appearance,Urine Cloudy (Clear); Bilirubin,Urine Negative (Negative); Blood,Urine Moderate (Negative); Color,Urine Yellow; Glucose,Urine (UA) Negative (Negative); Ketones,Urine Negative (Negative); Leukocyte Esterase,Urine Large (Negative); Mucus,Urine Many /hpf; Nitrite,Urine Positive (Negative); PH, Urine 6.5 (5.0-8.0); Protein,Urine Trace (Negative); RBC,Urine 30 /hpf (0-5); Specific Gravity,Urine 1.042 (1.001-1.035); Squamous Epithelial Cell,Urine 18 /hpf (0-4); Urobilinogen,Urine <2.0 mg/dL (<2.0); WBC,Urine >182 /hpf (0-5)
[2024-10-18] MEDS: ASPIRIN 81 MG PO STA (02:24)
[2024-10-18] MEDS: PIPERACILLIN-TAZOBACTAM 3.375 GM in SODIUM CHLORIDE 0.9% 100 ML IVPB SCH (08:36)
[2024-10-18] MEDS ORDERED: MAGNESIUM HYDROXIDE 2,400 MG/30 ML CUP PO PRN (13:38)
[2024-10-18] MEDS ORDERED: NA PHOS,M-B/NA PHOS,DI-BA 133 ML ENEMA RECTAL PRN (13:38)
[2024-10-18] MEDS ORDERED: ACETAMINOPHEN TAB 325 MG TAB PO PRN (13:38)
[2024-10-18] MEDS ORDERED: MENTHOL TOPICAL PRN (13:38)
--- NOTE | 2024-10-18 13:51 | P.CNNES ---
History of Present Illness Consult date: 10/18/24 Requesting physician: Michael Groves Reason for Consult: encephalopathy History of Present Illness: This is a 74-year-old woman with history of stroke, dementia, seizure who presents the emergency department because of altered mental status. History is obtained from medical record as well as the patient's nurse. Per the medical record [facility] was found to be altered the day prior to present the hospital. 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 According to the nurse she also has a history of dementia. Per the ED note it seems that the patient has new onset aphasia approximately 24 hours ago. Per the nurse patient has acute urinary tract infection. Patient is conversing more today compared to initial presentation. Some of the workup during this hospital visit. Urinalysis is cloudy, urine nitrate is positive, leukocyte esterase is large, urine white blood cells more than 182. Lactic acid is 0.9. Reviewed the rest of the lab workup CT Head is reported as no acute intracranial hemorrhage. No significant mass effect or midline shift. 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 Large area of encephalomalacia involving the posterior right MCA territory. Left mastoiditis effusion noted. The right mastoid air cells are well aerated. I personally reviewed the CT of the head and I agree there is no acute or subacute stroke. CT angiography of the head and neck is reported as atherosclerotic calcification of both carotid bifurcation without significant stenosis by NASCET criteria. There is hypoattenuation lesion in the right thyroid measuring 1.8 x 0.9 x 1.6 cm. Small nodule noted inferior laterally. Recommend nonemergent thyroid ultrasound if not previously performed. There is only minimal faint enhancement of the atria take distal right vertebral artery. The left vertebral artery demonstrates atherosclerotic disease. This asymmetric from the enhancement pattern of the distal cervical segment suggest that transition from C1 to the aponte magnum. The vertebral artery demonstrated atherosclerotic disease but is patent. The right M1 segment is small caliber but is patent. The right M2/M3 branch are small in caliber but are patent, transversing the encephalomalacia of the right MCA territory adjacent to the aneurysm clip. Review of Systems As per HPI. Past Medical History Past Medical History: Atrial Fibrillation, CVA/TIA, Hyperlipidemia, Hypertension Additional Past Medical History / Comment(s): Seizure disorder, A-fib History of Any Multi-Drug Resistant Organisms: Unobtainable Past Surgical History: Unable to Obtain Past Anesthesia/Blood Transfusion Reactions: Unable to Obtain Smoking Status: Unknown if ever smoked Past Alcohol Use History: Unable to Obtain Past Drug Use History: Unable to Obtain Medications and Allergies Home Medications Medication Instructions Recorded Confirmed Type Acetaminophen [Tylenol] 650 mg PO Q6H PRN 10/12/24 10/18/24 History Aspirin EC [Ecotrin Low Dose] 81 mg PO DAILY 10/12/24 10/18/24 History Baclofen [Lioresal] 10 mg PO TID 10/12/24 10/18/24 History DULoxetine HCL [Cymbalta] 20 mg PO DAILY 10/12/24 10/18/24 History Fluticasone Propion/Salmeterol 1 inhalation PO RT-BID 10/12/24 10/18/24 History [Advair 250-50 Diskus] Lactobacillus Acidophilus 1 cap PO DAILY 10/12/24 10/18/24 History [Acidophilus] Magnesium Hydroxide [Milk of 7,200 mg PO DAILY PRN 10/12/24 10/18/24 History Magnesia Concentrate] Metoprolol Tartrate [Lopressor] 12.5 mg PO BID 10/12/24 10/18/24 History Na Phos,M-B/Na Phos,Di-Ba [Fleet 133 ml RECTAL DAILY PRN 10/12/24 10/18/24 History Adult] Naloxegol Oxalate [Movantik] 12.5 mg PO DAILY 10/12/24 10/18/24 History Omeprazole [PriLOSEC] 20 mg PO HS 10/12/24 10/18/24 History Potassium Chloride [Klor-Con M10] 10 meq PO DAILY 10/12/24 10/18/24 History Pravastatin Sodium [Pravachol] 20 mg PO HS 10/12/24 10/18/24 History Rivaroxaban [Xarelto] 10 mg PO DAILY 10/12/24 10/18/24 History Sennosides [Senokot] 17.2 mg PO BID@0800,1700 10/12/24 10/18/24 History bisacodyL [Dulcolax] 10 mg RECTAL DAILY PRN 10/12/24 10/18/24 History dilTIAZem HCL [Cardizem CD] 120 mg PO Q24HR 10/12/24 10/18/24 History levETIRAcetam [Keppra] 500 mg PO BID@0800,1700 10/12/24 10/18/24 History tiZANidine [Zanaflex] 2 mg PO Q8HR PRN 10/12/24 10/18/24 History HYDROcodone/APAP 5-325MG [[place] 1 tab PO Q6H PRN #12 tab 10/15/24 10/18/24 Rx 5-325] Lactulose [Cephulac] 30 gm PO BID #600 ml 10/15/24 10/18/24 Rx Pregabalin [Lyrica] 150 mg PO BID 3 Days #6 cap 10/15/24 10/18/24 Rx Psyllium Husk 100% [Metamucil 6 gm PO BID 15 Days #30 packet 10/15/24 10/18/24 Rx Packet] Baclofen [Lioresal] 20 mg PO TID 10/18/24 10/18/24 History Menthol [Biofreeze] 1 spray TOPICAL Q4H PRN 10/18/24 10/18/24 History tiZANidine [Zanaflex] 2 mg PO Q8HR 10/18/24 10/18/24 History Allergies Allergy/AdvReac Type Severity Reaction Status Date / Time No Known Allergies Allergy Verified 10/18/24 08:29 Physical Examination - Vital Signs Vital Signs: Vital Signs Temp Pulse Pulse Resp BP BP Pulse Ox 10/18/24 11:26 98.1 F 76 16 138/68 99 10/18/24 08:00 98.3 F 80 16 142/70 99 10/18/24 06:03 61 16 105/53 97 10/18/24 04:35 64 16 125/60 97 10/18/24 02:24 67 18 156/53 97 10/18/24 01:05 58 L 18 156/57 90 L 10/17/24 22:53 61 18 117/71 97 10/17/24 21:44 98.8 F 65 20 147/99 97 Intake and Output 10/17/24 10/18/24 10/18/24 22:59 06:59 14:59 Other: Weight 97.522 kg General: Lying in bed and does not appear in acute distress. Neuro: Limited The patient kept on yelling and stating that she does not want to be touched. She is oriented to self. She states the year is 2027. She states issues at [facility]. She is following few simple commands such as showing a thumbs up wiggling the toes. Language is very limited but does not appear aphasic. Pupils are round equal reactive to light. No dysarthria. Motor she is raising the right upper extremity above gravity and refuses to place it down. She will move the right lower extremity spontaneously. She has no movement over the left upper lower extremity which is chronic. She is refusing of being touched Results - Laboratory Findings CBC and BMP: 10/17/24 22:25 10/17/24 22:25 Abnormal Lab Findings: Abnormal Labs 10/17/24 10/18/24 22: 02:05 Eosinophils # 0.00 L Urine Appearance Cloudy H Ur Specific [place] 1.042 H Urine Protein Trace H Urine Blood Moderate H Urine Nitrite Positive H Ur Leukocyte Esterase Large H Urine RBC 30 H Urine WBC >182 H Ur Squamous Epith Cells 18 H Urine Mucus Many H Assessment and Plan Assessment: This is a 74-year-old woman who presents from her nursing facility because of altered and aphasia. It seems that she has acute urinary tract infection. Altered mental status with aphasia likely due to her acute urinary tract infection--she is more awake and cooperative compared to initial presentation. 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 History of apparently right hemispheric clip in MCA territory Underlying history of dementia History of seizures Plan: Infection diseases consulted. Urine cultures ordered For her seizure she is on Keppra 500 mg twice daily She is on aspirin 81 mg daily. She was given aspirin 324 mg once in the ED. Patient is on Xarelto 10 mg daily. Patient is also on pravastatin 20 mg nightly If patient continues to have confusion recommend a repeat CT of the head and consider routine EEG I doubt the patient can have MRI in our facility since she has surgical clip intracranially Will defer the rest of the medical management to primary and other specialist Plan discussed with the patient's nurse Dr. Mora will resume neurology service tomorrow a.m. Time with Patient: Greater than 30
--- NOTE | 2024-10-18 15:37 | P.CNPUL ---
History of Present Illness Consult date: 10/18/24 Requesting physician: Fredy Lyle Reason for consult: abnormal CXR/CT Chief complaint: Altered mental status History of present illness: The patient is seen today October 18, 2024 in consultation on the regular medical floor. She is a 74-year-old female patient, extremely debilitated related to pr evious CVA and dementia. The patient has chronic left-sided hemiplegia with contractures and the patient is nonambulatory and she is a alf resident. She has chronic contractures involving the left upper and left lower extremity. She is essentially bedridden. She has also cognitive impairment related to dementia. She presents from [facility] again after just being discharged from here on 10/15/2024 with altered mental status according to staff. Chest x-ray reveals airspace opacity involving the posterior right upper lobe. CT scan of the brain revealed no acute intracranial hemorrhage. No significant mass effect or midline shift. Postsurgical changes consistent with previous aneurysm: Pain. Large area of encephalomalacia involving the posterior right MCA territory. CT angiogram revealed minimal abnormalities. No significant intracranial CTA findings. White count 7.3. Hemoglobin 12.6. Platelets 257. Sodium 142. Potassium 3.5. Bicarb 25. BUN 13. Creatinine 0.66. Glucose 98. Urinalysis cloudy with positive nitrates and many bacteria. The patient is seen today in consultation on the regular medical floor. She is currently resting in bed. Awake and alert. Very poor historian. Not able to obtain any information from her. She is maintaining good O2 saturations in the high 90s on 2 L/min per nasal cannula. She has been afebrile. Hemodynamically stable. Review of Systems ROS unobtainable: due to mental status Past Medical History Past Medical History: Atrial Fibrillation, CVA/TIA, Hyperlipidemia, Hypertension Additional Past Medical History / Comment(s): Seizure disorder, A-fib History of Any Multi-Drug Resistant Organisms: Unobtainable Past Surgical History: Unable to Obtain Past Anesthesia/Blood Transfusion Reactions: Unable to Obtain Smoking Status: Unknown if ever smoked Past Alcohol Use History: Unable to Obtain Past Drug Use History: Unable to Obtain Medications and Allergies Home Medications Medication Instructions Recorded Confirmed Type Acetaminophen [Tylenol] 650 mg PO Q6H PRN 10/12/24 10/18/24 History Aspirin EC [Ecotrin Low Dose] 81 mg PO DAILY 10/12/24 10/18/24 History Baclofen [Lioresal] 10 mg PO TID 10/12/24 10/18/24 History DULoxetine HCL [Cymbalta] 20 mg PO DAILY 10/12/24 10/18/24 History Fluticasone Propion/Salmeterol 1 inhalation PO RT-BID 10/12/24 10/18/24 History [Advair 250-50 Diskus] Lactobacillus Acidophilus 1 cap PO DAILY 10/12/24 10/18/24 History [Acidophilus] Magnesium Hydroxide [Milk of 7,200 mg PO DAILY PRN 10/12/24 10/18/24 History Magnesia Concentrate] Metoprolol Tartrate [Lopressor] 12.5 mg PO BID 10/12/24 10/18/24 History Na Phos,M-B/Na Phos,Di-Ba [Fleet 133 ml RECTAL DAILY PRN 10/12/24 10/18/24 History Adult] Naloxegol Oxalate [Movantik] 12.5 mg PO DAILY 10/12/24 10/18/24 History Omeprazole [PriLOSEC] 20 mg PO HS 10/12/24 10/18/24 History Potassium Chloride [Klor-Con M10] 10 meq PO DAILY 10/12/24 10/18/24 History Pravastatin Sodium [Pravachol] 20 mg PO HS 10/12/24 10/18/24 History Rivaroxaban [Xarelto] 10 mg PO DAILY 10/12/24 10/18/24 History Sennosides [Senokot] 17.2 mg PO BID@0800,1700 10/12/24 10/18/24 History bisacodyL [Dulcolax] 10 mg RECTAL DAILY PRN 10/12/24 10/18/24 History dilTIAZem HCL [Cardizem CD] 120 mg PO Q24HR 10/12/24 10/18/24 History levETIRAcetam [Keppra] 500 mg PO BID@0800,1700 10/12/24 10/18/24 History tiZANidine [Zanaflex] 2 mg PO Q8HR PRN 10/12/24 10/18/24 History HYDROcodone/APAP 5-325MG [[place] 1 tab PO Q6H PRN #12 tab 10/15/24 10/18/24 Rx 5-325] Lactulose [Cephulac] 30 gm PO BID #600 ml 10/15/24 10/18/24 Rx Pregabalin [Lyrica] 150 mg PO BID 3 Days #6 cap 10/15/24 10/18/24 Rx Psyllium Husk 100% [Metamucil 6 gm PO BID 15 Days #30 packet 10/15/24 10/18/24 Rx Packet] Baclofen [Lioresal] 20 mg PO TID 10/18/24 10/18/24 History Menthol [Biofreeze] 1 spray TOPICAL Q4H PRN 10/18/24 10/18/24 History tiZANidine [Zanaflex] 2 mg PO Q8HR 10/18/24 10/18/24 History Allergies Allergy/AdvReac Type Severity Reaction Status Date / Time No Known Allergies Allergy Verified 10/18/24 08:29 Physical Exam Vitals: Vital Signs Temp Pulse Pulse Resp BP BP Pulse Ox 10/18/24 11:26 98.1 F 76 16 138/68 99 10/18/24 08:00 98.3 F 80 16 142/70 99 10/18/24 06:03 61 16 105/53 97 10/18/24 04:35 64 16 125/60 97 10/18/24 02:24 67 18 156/53 97 10/18/24 01:05 58 L 18 156/57 90 L 10/17/24 22:53 61 18 117/71 97 10/17/24 21:44 98.8 F 65 20 147/99 97 Intake and Output 10/18/24 10/18/24 10/18/24 06:59 14:59 22:59 Intake Total 240 Balance 240 Intake: Oral 240 Other: # Voids 5 GENERAL EXAM: Alert, active, comfortable in no apparent distress. HEAD: Normocephalic. EYES: Normal reaction of pupils, equal size. NOSE: Clear with pink turbinates. THROAT: No erythema or exudates. NECK: No masses, no JVD. CHEST: No chest wall deformity. LUNGS: Equal air entry with no crackles, wheeze, rhonchi or dullness. CVS: S1 and S2 normal with no audible murmur, regular rhythm. ABDOMEN: No hepatosplenomegaly, normal bowel sounds, no guarding or rigidity. SPINE: No scoliosis or deformity SKIN: No rashes CENTRAL NERVOUS SYSTEM: Cognitively impaired related to chronic dementia and previous CVA tone is normal in all 4 extremities. EXTREMITIES: Chronic left-sided hemiplegia with contractures. No significant edema. No clubbing. No cyanosis. Results - Laboratory Findings CBC and BMP: 10/17/24 22:25 10/17/24 22:25 Abnormal lab findings: Abnormal Labs 10/17/24 10/18/24 22:25 02:05 Eosinophils # 0.00 L Urine Appearance Cloudy H Ur Specific [place] 1.042 H Urine Protein Trace H Urine Blood Moderate H Urine Nitrite Positive H Ur Leukocyte Esterase Large H Urine RBC 30 H Urine WBC >182 H Ur Squamous Epith Cells 18 H Urine Mucus Many H - Diagnostic Findings CT scan - chest: image reviewed Assessment and Plan Assessment: Altered mental status according to alf staff History of CVA with chronic debility and left-sided hemiplegia with contractures involving the left upper and left lower extremity and the patient is nonambulatory Dementia with impairment cognitive functions Asymptomatic bacteriuria Lung masses involving a 2 cm in the right upper lobe and 3 cm in the right lower lobe mass. 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 Chronic constipation Hypertension Seizure disorder Chronic atrial fibrillation and anticoagulation with Xarelto Chronic pain Degenerative arthritis care home resident Former smoker Poor functional performance based on the above-mentioned multiple comorbidities Plan: The patient was seen and evaluated Chest x-ray, labs and medications reviewed Recent CAT scan from 10/14/2024 reviewed Recommend outpatient PET scan Most likely only a candidate for possible radiation Currently on 2 L nasal cannula Titrate down/off the FiO2 as tolerated Neurology consult for altered mental status We will continue to follow and make further recommendations based on her clinical status I have personally seen and examined the patient, performed the documentation and the assessment and plan as written. Number of minutes spent on the visit: 20 Dictation was produced using [employer] software. Please excuse any grammatical, word or spelling errors. Time with Patient: Greater than 30
--- NOTE | 2024-10-18 16:06 | HP ---
HISTORY AND PHYSICAL CHIEF COMPLAINT: Change in mental status and UTI. HISTORY OF PRESENT ILLNESS: This is a 74-year-old woman with a past medical history of dementia, left-sided weakness, complaining of change in mental status. The patient was evaluated. The patient had abnormal urine. Currently, the patient is unable to provide a detailed history. The patient is being admitted for further evaluation and treatment of the possible UTI. There is no history of fever, rigors, or chills at this time. PAST MEDICAL HISTORY: Reviewed include atrial fibrillation, CVA, TIA, dementia, seizure disorder. The rest of the chart is also reviewed. HOME MEDICATIONS: Reviewed include Xarelto. Dose and rest of medications were reviewed. ALLERGIES: None. FAMILY HISTORY: Could not be taken. SOCIAL HISTORY: Could not be taken. PHYSICAL EXAMINATION: VITAL SIGNS: Pulse is 76, blood pressure 130/68, and respirations 16. HEENT: Conjunctivae normal. NECK: No jugular venous distention. CARDIOVASCULAR: S1, S2 muffled. RESPIRATIONS: Breath sounds diminished at the bases. ABDOMEN: Soft, nontender. LEGS: No edema. NERVOUS SYSTEM: Unchanged. LABORATORY DATA: Labs are reviewed. ASSESSMENT: 1. Change in mental status, possible acute urinary tract infection. 2. History of old cerebrovascular accident with left-sided weakness. 3. Rule out pneumonia. 4. Acute urinary tract infection present on admission. 5. Significant encephalomalacia on the right side causing significant left-sided weakness. 6. History of atrial fibrillation. 7. Hypertension. 8. History of seizure disorder. RECOMMENDATIONS AND DISCUSSION: This 74-year-old woman presented with multiple complex medical issues. We will monitor the patient closely. Continue the current medications, symptomatic treatment, otherwise broad-spectrum IV antibiotics. Infectious Disease and Neurology consultation. I would also recommend Pulmonary consultation with Dr. Pollard also for the possibility of pneumonia and abnormal chest x-ray also. See orders for the details. MMODL / IJN: [id number] /
[2024-10-18] MEDS: HYDROcodone/APAP 5-325MG 1 EACH TAB PO PRN (16:12)
[2024-10-18] MEDS: BACLOFEN 10 MG TAB PO SCH (16:13)
[2024-10-18] MEDS: levETIRAcetam 500 MG TAB PO SCH (16:13)
[2024-10-18] MEDS: SENNOSIDES 8.6 MG TAB PO SCH (16:13)
[2024-10-18] MEDS: SYMBICORT 80-4.5 MCG INHALER INHALATION SCH (19:18)
[2024-10-18] MEDS: PREGABALIN 75 MG CAP PO SCH (19:59)
[2024-10-18] MEDS: PANTOPRAZOLE 40 MG TABLET PO SCH (19:59)
[2024-10-18] MEDS: PRAVASTATIN SODIUM 20 MG TAB PO SCH (19:59)
[2024-10-18] MEDS: PSYLLIUM HUSK 100% 6 GM PACKET PO SCH (19:59)
[2024-10-18] MEDS: METOPROLOL TARTRATE 12.5 MG TAB PO SCH (19:59)
[2024-10-18] MEDS: LACTULOSE 20 GM/30 ML CUP PO SCH (19:59)
--- NOTE | 2024-10-18 22:29 | P.CONS ---
History of Present Illness - Reason for Consult Consult date: 10/18/24 ESBL UTI/sepsis Requesting physician: Fredy Lyle - Chief Complaint Mental status changes x 1 day - History of Present Illness Patient is a 74-year-old female with a past medical history significant for hypertension hyperlipidemia CVA TIA atrial fibrillation, patient has been brought into the hospital from the local longterm for evaluation of mental status changes patient was noted to have new onset aphasia as reported by the longterm staff to the EMS/ER physician patient on presentation to the hospital was afebrile and no fever have been called subsequently patient was nontachycardic hypotensive or hypoxic patient did have a white count of 7.35 creatinine 0.66 electrolytes are normal liver enzymes are normal urine has been positive with large leukocyte esterase more than 1-2 WBC patient did have a chest x-ray airspace opacity involving the posterior right upper lobe and with concern for possible component of pneumonia and patient also have a history of ESBL UTI with the last urine culture in the system is from 01/01/2024 patient was started on Zosyn infectious he was consulted for further management of antibiotic therapy most information has been obtained for review of the chart as the patient cannot provide reliable history Review of Systems Positive points has been mentioned in HPI complete review could not be obtained because of his underlying mental status Past Medical History Past Medical History: Atrial Fibrillation, CVA/TIA, Hyperlipidemia, Hypertension Additional Past Medical History / Comment(s): Seizure disorder, A-fib History of Any Multi-Drug Resistant Organisms: Unobtainable Past Surgical History: Unable to Obtain Past Anesthesia/Blood Transfusion Reactions: Unable to Obtain Smoking Status: Unknown if ever smoked Past Alcohol Use History: Unable to Obtain Past Drug Use History: Unable to Obtain Medications and Allergies Home Medications Medication Instructions Recorded Confirmed Type Acetaminophen [Tylenol] 650 mg PO Q6H PRN 10/12/24 10/18/24 History Aspirin EC [Ecotrin Low Dose] 81 mg PO DAILY 10/12/24 10/18/24 History Baclofen [Lioresal] 10 mg PO TID 10/12/24 10/18/24 History DULoxetine HCL [Cymbalta] 20 mg PO DAILY 10/12/24 10/18/24 History Fluticasone Propion/Salmeterol 1 inhalation PO RT-BID 10/12/24 10/18/24 History [Advair 250-50 Diskus] Lactobacillus Acidophilus 1 cap PO DAILY 10/12/24 10/18/24 History [Acidophilus] Magnesium Hydroxide [Milk of 7,200 mg PO DAILY PRN 10/12/24 10/18/24 History Magnesia Concentrate] Metoprolol Tartrate [Lopressor] 12.5 mg PO BID 10/12/24 10/18/24 History Na Phos,M-B/Na Phos,Di-Ba [Fleet 133 ml RECTAL DAILY PRN 10/12/24 10/18/24 Hist ory Adult] Naloxegol Oxalate [Movantik] 12.5 mg PO DAILY 10/12/24 10/18/24 History Omeprazole [PriLOSEC] 20 mg PO HS 10/12/24 10/18/24 History Potassium Chloride [Klor-Con M10] 10 meq PO DAILY 10/12/24 10/18/24 History Pravastatin Sodium [Pravachol] 20 mg PO HS 10/12/24 10/18/24 History Rivaroxaban [Xarelto] 10 mg PO DAILY 10/12/24 10/18/24 History Sennosides [Senokot] 17.2 mg PO BID@0800,1700 10/12/24 10/18/24 History bisacodyL [Dulcolax] 10 mg RECTAL DAILY PRN 10/12/24 10/18/24 History dilTIAZem HCL [Cardizem CD] 120 mg PO Q24HR 10/12/24 10/18/24 History levETIRAcetam [Keppra] 500 mg PO BID@0800,1700 10/12/24 10/18/24 History tiZANidine [Zanaflex] 2 mg PO Q8HR PRN 10/12/24 10/18/24 History HYDROcodone/APAP 5-325MG [[place] 1 tab PO Q6H PRN #12 tab 10/15/24 10/18/24 Rx 5-325] Lactulose [Cephulac] 30 gm PO BID #600 ml 10/15/24 10/18/24 Rx Pregabalin [Lyrica] 150 mg PO BID 3 Days #6 cap 10/15/24 10/18/24 Rx Psyllium Husk 100% [Metamucil 6 gm PO BID 15 Days #30 packet 10/15/24 10/18/24 Rx Packet] Baclofen [Lioresal] 20 mg PO TID 10/18/24 10/18/24 History Menthol [Biofreeze] 1 spray TOPICAL Q4H PRN 10/18/24 10/18/24 History tiZANidine [Zanaflex] 2 mg PO Q8HR 10/18/24 10/18/24 History Allergies Allergy/AdvReac Type Severity Reaction Status Date / Time No Known Allergies Allergy Verified 10/18/24 08:29 Physical Exam Vitals: Vital Signs Temp Pulse Pulse Resp BP BP Pulse Ox 10/18/24 11:26 98.1 F 76 16 138/68 99 10/18/24 08:00 98.3 F 80 16 142/70 99 10/18/24 06:03 61 16 105/53 97 10/18/24 04:35 64 16 125/60 97 10/18/24 02:24 67 18 156/53 97 10/18/24 01:05 58 L 18 156/57 90 L 10/17/24 22:53 61 18 117/71 97 10/17/24 21:44 98.8 F 65 20 147/99 97 Intake and Output 10/18/24 10/18/24 10/18/24 06:59 14:59 22:59 Intake Total 240 Balance 240 Intake: Oral 240 Other: # Voids 5 GENERAL DESCRIPTION: Elderly female lying in bed, no distress. No tachypnea or accessory muscle of respiration use. HEENT: Shows Pallor , no scleral icterus. Oral mucous membrane is dry. NECK: Trachea central, no thyromegaly. LUNGS: Unlabored breathing. Decreased breath sound at the base HEART: S1, S2, regular rate and rhythm. No loud murmur ABDOMEN: Soft, no tenderness , guarding or rigidity, no organomegaly EXTREMITIES: No edema of feet. SKIN: No rash, no masses palpable. NEUROLOGICAL: The patient is sleepy but arousable nonverbal orientation could not be determined Results CBC & Chem 7: 10/17/24 22:25 10/17/24 22:25 Labs: Abnormal Lab Results - Last 24 Hours (Table) 10/17/24 10/18/24 Range/Units 22:25 02:05 Eosinophils # 0.00 L (0.04-0.35) 10*3/uL Urine Appearance Cloudy H (Clear) Ur Specific [place] 1.042 H (1.001-1.035) Urine Protein Trace H (Negative) Urine Blood Moderate H (Negative) Urine Nitrite Positive H (Negative) Ur Leukocyte Esterase Large H (Negative) Urine RBC 30 H (0-5) /hpf Urine WBC >182 H (0-5) /hpf Ur Squamous Epith Cells 18 H (0-4) /hpf Urine Mucus Many H (None) /hpf Assessment and Plan (1) Abnormal urinalysis Current Visit: Yes Status: Acute Code(s): R82.90 - UNSPECIFIED ABNORMAL FINDINGS IN URINE SNOMED Code(s): 082713071 (2) Lung mass Current Visit: Yes Status: Acute Code(s): R91.8 - OTHER NONSPECIFIC ABNORMAL FINDING OF LUNG FIELD SNOMED Code(s): 241444719 (3) History of ESBL E. coli infection Current Visit: Yes Status: Acute Code(s): Z86.19 - PERSONAL HISTORY OF OTHER INFECTIOUS AND PARASITIC DISEASES SNOMED Code(s): 496494556 (4) Altered mental status Current Visit: Yes Status: Acute Code(s): R41.82 - ALTERED MENTAL STATUS, UNSPECIFIED SNOMED Code(s): 728453551 Plan: 1patient presented to hospital with mental status changes which is likely multifactorial, patient did have a abnormal UA and also have some mental status changes however white count has been normal that will be make her to be mostly asymptomatic bacteriuria rather than symptomatic infection, the patient also reyes ve a lung mass with a question of malignancy and concern for possible component of postobstructive pneumonia less likely but not entirely excluded 2-we will try to obtain a sputum check a CRP and a procalcitonin 3-May continue Zosyn however his CRP and procalcitonin are normal we recommend to discontinue antibiotics We will follow on clinical condition and cultures to further adjust medication if needed Thank you for this consultation we will follow the patient along with you Dictation was produced using [employer] software. please excuse any grammatical, word or spelling errors. Time with Patient: Greater than 30
[2024-10-19 08:03] LABS: Basophils # (A) 0.03 X 10*3/uL (0.00-0.10); Basophils % (A) 0.5 %; Eosinophils # (A) 0 X 10*3/uL (0.04-0.35); Eosinophils % (A) 0 %; HGB 12.7 g/dL (12.0-15.0); Lymphocytes # (A) 1.62 X 10*3/uL (0.90-5.00); Lymphocytes % (A) 28.4 %; MCH 28.3 pg (27.0-32.0); MCHC 31.8 g/dL (32.0-37.0); MCV 89.3 FL (80.0-97.0); Mean Platelet Volume 10.3 FL (9.5-12.2); Monocytes # (A) 0.69 X 10*3/uL (0.20-1.00); Monocytes % (A) 12.1 %; NRBC Per 100 WBC 0 X 10*3/uL (0.00-0.01); Neutrophils # (A) 3.36 X 10*3/uL (1.80-7.70); Neutrophils % (A) 58.8 %; Platelet Count 225 X 10*3/uL (140-440); RBC 4.48 X 10*6/uL (4.10-5.20); RDW 14.8 % (11.5-14.5); WBC 5.71 X 10*3/uL (4.50-10.00)
[2024-10-19 08:23] LABS: ALT 11 U/L (8-44); AST 16 U/L (13-35); Albumin 3.5 g/dL (3.8-4.9); Albumin/Globulin Ratio 1.46 Ratio (1.60-3.17); Alkaline Phosphatase 79 U/L (41-126); BUN/Creat Ratio 18.75 Ratio (12.00-20.00); Calcium 8.7 mg/dL (8.7-10.3); Carbon Dioxide 24.5 mmol/L (21.6-31.8); Chloride 109 mmol/L (96-109); Globulin 2.4 g/dL (1.6-3.3); Glucose 94 mg/dL (70-110); Potassium 3.2 mmol/L (3.5-5.5); Sodium 145 mmol/L (135-145); Total Bilirubin 0.6 mg/dL (0.3-1.2); Total Protein 5.9 g/dL (6.2-8.2)
[2024-10-19] MEDS: POTASSIUM CHLORIDE ER 10 MEQ TAB.ER.PRT PO SCH (08:56)
[2024-10-19] MEDS: DILTIAZEM CD 120 MG CAP.ER.24H PO SCH (08:56)
[2024-10-19] MEDS: DULoxetine HCL 20 MG CAPSULE.DR PO SCH (08:56)
[2024-10-19] MEDS: RIVAROXABAN 10 MG TAB PO SCH (08:56)
[2024-10-19] MEDS: ASPIRIN 81 MG PO SCH (08:56)
[2024-10-19] MEDS: LACTOBACILLUS ACIDOPHILUS/PECT 1 EACH CAPSULE PO SCH (08:56)
--- NOTE | 2024-10-19 12:19 | P.PN ---
Subjective Progress Note Date: 10/19/24 The patient is seen today October 18, 2024 in consultation on the regular medical floor. She is a 74-year-old female patient, extremely debilitated related to previous CVA and dementia. The patient has chronic left-sided hemiplegia with contractures and the patient is nonambulatory and she is a retirement resident. She has chronic contractures involving the left upper and left lower extremity. She is essentially bedridden. She has also cognitive impairment related to dementia. She presents from [facility] again after just being discharged from here on 10/15/2024 with altered mental status according to staff. Chest x-ray reveals airspace opacity involving the posterior right upper lobe. CT scan of the brain revealed no acute intracranial hemorrhage. No significant mass effect or midline shift. Postsurgical changes consistent with previous aneurysm: Pain. Large area of encephalomalacia involving the posterior right MCA territory. CT angiogram revealed minimal abnormalities. No significant intracranial CTA findings. White count 7.3. Hemoglobin 12.6. Platelets 257. Sodium 142. Potassium 3.5. Bicarb 25. BUN 13. Creatinine 0.66. Glucose 98. Urinalysis cloudy with positive nitrates and many bacteria. The patient is seen today in consultation on the regular medical floor. She is currently resting in bed. Awake and alert. Very poor historian. Not able to obtain any information from her. She is maintaining good O2 saturations in the high 90s on 2 L/min per nasal cannula. She has been afebrile. Hemodynamically stable. The patient is seen today October 19, 2024 in follow-up on the regular medical floor. She is currently resting comfortably in bed. Awake and alert. Maintaining O2 saturations in the 90s on 2 L/min per nasal cannula. White count 5.7. Hemoglobin 12.7. Platelets 225. Sodium 145. Potassium 3.2. Bicarb 25. BUN 15. Creatinine 0.8. She remains on Zosyn. Anticoagulated with Xarelto. Continued on her Symbicort. Objective - Vital Signs Vital signs: Vital Signs Temp 98.0 F 10/19/24 11:25 Pulse 62 10/19/24 11:25 Resp 16 10/19/24 11:25 BP 144/76 10/19/24 11:25 Pulse Ox 95 10/19/24 11:25 FiO2 Intake & Output 10/18/24 10/19/24 10/19/24 18:59 06:59 18:59 Intake Total 480 460 240 Balance 480 460 240 Weight 97.522 kg Intake: Intake, IV Titration 100 Amount Piperacillin-Tazobactam 3 100 .375 gm In Sodium Chloride 0.9% 100 ml @ 25 mls/hr IVPB Q8HR [facility] Rx# :[id number] Oral 480 360 240 Other: Voiding Method Diaper Diaper Incontinent Incontinent # Voids 5 2 - Exam GENERAL EXAM: Alert, 74-year-old female, on 2 L/min per nasal cannula, comfortable in no apparent distress. HEAD: Normocephalic. EYES: Normal reaction of pupils, equal size. NOSE: Clear with pink turbinates. THROAT: No erythema or exudates. NECK: No masses, no JVD. CHEST: No chest wall deformity. LUNGS: Equal air entry with no crackles, wheeze, rhonchi or dullness. CVS: S1 and S2 normal with no audible murmur, regular rhythm. ABDOMEN: No hepatosplenomegaly, normal bowel sounds, no guarding or rigidity. SPINE: No scoliosis or deformity SKIN: No rashes CENTRAL NERVOUS SYSTEM: Cognitively impaired related to chronic dementia and previous CVA tone is normal in all 4 extremities. EXTREMITIES: Chronic left-sided hemiplegia with contractures. No significant edema. No clubbing. No cyanosis. - Labs CBC & Chem 7: 10/19/24 05:37 10/19/24 05:37 Labs: Abnormal Lab Results - Last 24 Hours (Table) 10/19/24 10/19/24 Range/Units 05:37 05:37 MCHC 31.8 L (32.0-37.0) g/dL RDW 14.8 H (11.5-14.5) % Eosinophils # 0 L (0.04-0.35) X 10*3/uL Potassium 3.2 L (3.5-5.5) mmol/L Total Protein 5.9 L (6.2-8.2) g/dL Albumin 3.5 L (3.8-4.9) g/dL Albumin/Globulin Ratio 1.46 L (1.60-3.17) Ratio Assessment and Plan Assessment: Altered mental status according to retirement staff, suspect related to urinary tract infection History of CVA with chronic debility and left-sided hemiplegia with contractures involving the left upper and left lower extremity and the patient is nonambulatory Dementia with impairment cognitive functions Asymptomatic bacteriuria Lung masses involving a 2 cm in the right upper lobe and 3 cm in the right lower lobe mass. 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 Chronic constipation Hypertension Seizure disorder Chronic atrial fibrillation and anticoagulation with Xarelto Chronic pain Degenerative arthritis long-term resident Former smoker Poor functional performance based on the above-mentioned multiple comorbidities Plan: The patient was seen and evaluated Labs and medications reviewed Recommend outpatient PET scan Most likely only a candidate for possible radiation Currently on 2 L nasal cannula Titrate down/off the FiO2 as tolerated Cleared for transfer back to [facility] I have personally seen and examined the patient, performed the documentation and the assessment and plan as written. Number of minutes spent on the visit: 10 Dictation was produced using [employer] dictation software. Please excuse any grammatical, word or spelling errors.
--- NOTE | 2024-10-19 15:21 | P.PN ---
Subjective Progress Note Date: 10/19/24 Principal diagnosis: Reason for follow-up is question of pneumonia/UTI Patient is a 74-year-old female with a past medical history significant for hypertension hyperlipidemia CVA TIA atrial fibrillation, patient has been brought into the hospital from the local half-way for evaluation of mental status changes, did have a history of ESBL UTI and there was a right upper lobe mass concerning for possible pneumonia prompting this consultation. On today's evaluation that is 10/19/2024,the patient remains to be afebrile the patient is breathing comfortably on 2 L nasal cannula oxygen not reliable historian and no vomiting or diarrhea has been reported. Patient white count is 5.71, creatinine 0.8 urine is growing gram-negative Objective - Vital Signs Vital signs: Vital Signs Temp 98.0 F 10/19/24 11:25 Pulse 62 10/19/24 11:25 Resp 16 10/19/24 11:25 BP 144/76 10/19/24 11:25 Pulse Ox 95 10/19/24 11:25 FiO2 Intake & Output 10/18/24 10/19/24 10/19/24 18:59 06:59 18:59 Intake Total 667 438 2578 Balance 521 773 6838 Weight 97.522 kg Intake: Intake, IV Titration 100 Amount Piperacillin-Tazobactam 3 100 .375 gm In Sodium Chloride 0.9% 100 ml @ 25 mls/hr IVPB Q8HR [facility] Rx# :[id number] Oral [id number] [id number] 1353 Other: Voiding Method Diaper Diaper Diaper Incontinent Incontinent Incontinent # Voids 5 2 5 - Exam GENERAL DESCRIPTION: An elderly female lying in bed in no distress RESPIRATORY SYSTEM: Unlabored breathing , decreased breath sounds at bases HEART: S1 S2 regular rate and rhythm , ABDOMEN: Soft , no tenderness EXTREMITIES: No edema feet - Labs CBC & Chem 7: 10/19/24 05:37 10/19/24 05:37 Labs: Abnormal Lab Results - Last 24 Hours (Table) 10/19/24 10/19/24 Range/Units 05:37 05:37 MCHC 31.8 L (32.0-37.0) g/dL RDW 14.8 H (11.5-14.5) % Eosinophils # 0 L (0.04-0.35) X 10*3/uL Potassium 3.2 L (3.5-5.5) mmol/L Total Protein 5.9 L (6.2-8.2) g/dL Albumin 3.5 L (3.8-4.9) g/dL Albumin/Globulin Ratio 1.46 L (1.60-3.17) Ratio Microbiology - Last 24 Hours (Table) 10/18/24 02:05 Urine Culture - Preliminary Urine,Voided Gram Neg Bacilli Assessment and Plan (1) Abnormal urinalysis Current Visit: Yes Status: Acute Code(s): R82.90 - UNSPECIFIED ABNORMAL FINDINGS IN URINE SNOMED Code(s): 571865986 (2) Lung mass Current Visit: Yes Status: Acute Code(s): R91.8 - OTHER NONSPECIFIC ABNORMAL FINDING OF LUNG FIELD SNOMED Code(s): 462884778 (3) History of ESBL E. coli infection Current Visit: Yes Status: Acute Code(s): Z86.19 - PERSONAL HISTORY OF OTHER INFECTIOUS AND PARASITIC DISEASES SNOMED Code(s): 547904213 (4) Altered mental status Current Visit: Yes Status: Acute Code(s): R41.82 - ALTERED MENTAL STATUS, UNSPECIFIED SNOMED Code(s): 009949604 Plan: 1patient presented to hospital with mental status changes which is likely multifactorial, patient did have a abnormal UA and also have some mental status changes however white count has been normal that will be make her to be mostly asymptomatic bacteriuria rather than symptomatic infection, the patient also have a lung mass with a question of malignancy and concern for possible com ponent of postobstructive pneumonia less likely but not entirely excluded 2-urine is growing gram-negative currently waiting for CRP and a procalcitonin 3-continue Zosyn while waiting for the workup to be completed Dictation was produced using [employer] dictation software. please excuse any grammatical, word or spelling errors. Time with Patient: Less than 30
--- NOTE | 2024-10-19 18:54 | P.PN ---
Subjective Progress Note Date: 10/19/24 Patient was initially seen by Dr. Bao Mejía. Please refer to his note for details. Patient is a 74-year-old female with altered mental status. It seems more likely to the UTI. Some of the workup during this hospital visit. Urinalysis is cloudy, urine nitrate is positive, leukocyte esterase is large, urine white blood cells more than 182. Lactic acid is 0.9. Reviewed the rest of the lab workup CT Head is reported as no acute intracranial hemorrhage. No significant mass effect or midline shift. 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 Large area of encephalomalacia involving the posterior right MCA territory. Left mastoiditis effusion noted. The right mastoid air cells are well aerated. I personally reviewed the CT of the head and I agree there is no acute or subacute stroke. CT angiography of the head and neck is reported as atherosclerotic calcification of both carotid bifurcation without significant stenosis by NASCET criteria. There is hypoattenuation lesion in the right thyroid measuring 1.8 x 0.9 x 1.6 cm. Small nodule noted inferior laterally. Recommend nonemergent thyroid ultrasound if not previously performed. There is only minimal faint enhancement of the atria take distal right vertebral artery. The left vertebral artery demonstrates atherosclerotic disease. This asymmetric from the enhancement pattern of the distal cervical segment suggest that transition from C1 to the aponte magnum. The vertebral artery demonstrated atherosclerotic disease but is patent. The right M1 segment is small caliber but is patent. The right M2/M3 branch are small in caliber but are patent, transversing the encephaloma lacia of the right MCA territory adjacent to the aneurysm clip. Objective - Vital Signs Vital signs: Vital Signs Temp 98.3 F 10/19/24 18:28 Pulse 57 L 10/19/24 18:28 Resp 16 10/19/24 18:28 BP 114/63 10/19/24 18:28 Pulse Ox 93 L 10/19/24 18:28 FiO2 Intake & Output 10/18/24 10/19/24 10/19/24 18:59 06:59 18:59 Intake Total 325 473 3051 Balance 675 420 5246 Weight 97.522 kg Intake: Intake, IV Titration 100 Amount Piperacillin-Tazobactam 3 100 .375 gm In Sodium Chloride 0.9% 100 ml @ 25 mls/hr IVPB Q8HR [facility] Rx# :[id number] Oral [id number] Other: Voiding Method Diaper Diaper Diaper Incontinent Incontinent Incontinent # Voids 5 2 5 - Exam Patient is laying comfortably in the bed. She has oxygen on by nasal cannula. Patient knows her name and that she was born in 1950. She could not tell what current month or year is it. She knows that she is in [place] in [place]. Could not tell what building she is in. On given choices, she thinks she may be in senior care although not sure. She states that she lives with her . On examination patient is alert and awake. Speech is slightly hoarse but no aphasia or dysarthria. No paraphasic errors. She has slightly slow mentation. Decreased hearing. Patient has left homonymous hemianopia, likely from previous stroke. Patient is hemiplegic on the left side from previous stroke. She moves her right arm and right leg well. Face appears symmetric. She has slightly disconjugate gaze. - Labs CBC & Chem 7: 10/19/24 05:37 10/19/24 05:37 Labs: Abnormal Lab Results - Last 24 Hours (Table) 10/19/24 10/19/24 Range/Units 05:37 05:37 MCHC 31.8 L (32.0-37.0) g/dL RDW 14.8 H (11.5-14.5) % Eosinophils # 0 L (0.04-0.35) X 10*3/uL Potassium 3.2 L (3.5-5.5) mmol/L Total Protein 5.9 L (6.2-8.2) g/dL Albumin 3.5 L (3.8-4.9) g/dL Albumin/Globulin Ratio 1.46 L (1.60-3.17) Ratio Microbiology - Last 24 Hours (Table) 10/18/24 02:05 Urine Culture - Preliminary Urine,Voided Gram Neg Bacilli Assessment and Plan Assessment: This is a 74-year-old woman who presents from her nursing facility because of altered and aphasia. It seems that she has acute urinary tract infection. Altered mental status with aphasia likely due to her acute urinary tract infection--she is more awake and cooperative compared to initial presentation. Unlikely acute/subacute stroke Acute UTI, with gram-negative bacilli. History of right MCA stroke with residual left hemiplegia. History of apparently right hemispheric clip in MCA territory Underlying history of dementia History of seizures Plan: Infection diseases consulted. Urine has grown more than 100,000 gram-negative bacilli. Patient on Zosyn. For her seizure she is on Keppra 500 mg twice daily She is on aspirin 81 mg daily. She was given aspirin 324 mg once in the ED. Patient is on Xarelto 10 mg daily. Patient is also on pravastatin 20 mg nightly If patient continues to have confusion recommend a repeat CT of the head and consider routine EEG. However it appears patient's mentation is improving. Will defer the rest of the medical management to primary and other specialist
--- NOTE | 2024-10-19 20:33 | PN ---
PROGRESS NOTE DATE OF SERVICE: 10/19/2024 SUBJECTIVE: This is a 74-year-old woman, who was admitted with change in mental status and possible UTI, is being closely monitored at this time. OBJECTIVE: VITAL SIGNS: Pulse is 64, blood pressure 148/70, respirations 16. CHEST: Clear to auscultation. CARDIOVASCULAR: S1 and S2. ABDOMEN: Soft. NERVOUS SYSTEM: Nonfocal. LABORATORY DATA: Potassium 3.2. UA noted. Cultures are not available. ASSESSMENT: 1. Change in mental status, possible acute urinary tract infection. 2. History of old cerebrovascular accident and left-sided weakness. 3. Rule out pneumonia. 4. Acute urinary tract infection, present on admission. 5. Significant encephalomalacia on the right side causing significant left-sided weakness. 6. History of atrial fibrillation. 7. Hypertension. 8. Seizure disorder. RECOMMENDATIONS: Continue current management and treatment. Repeat labs. We will follow the cultures. Empiric antibiotics. Guarded prognosis. Further recommendations to follow. Infectious Disease following the patient closely. MMODL / IJN: [id number] /
[2024-10-20 09:13] LABS: Basophils # (A) 0.03 X 10*3/uL (0.00-0.10); Basophils % (A) 0.6 %; Eosinophils # (A) 0 X 10*3/uL (0.04-0.35); Eosinophils % (A) 0 %; HCT 36.9 % (37.2-46.3); HGB 11.4 g/dL (12.0-15.0); Lymphocytes # (A) 1.42 X 10*3/uL (0.90-5.00); Lymphocytes % (A) 27.8 %; MCH 27.7 pg (27.0-32.0); MCHC 30.9 g/dL (32.0-37.0); MCV 89.6 FL (80.0-97.0); Mean Platelet Volume 10.4 FL (9.5-12.2); Monocytes # (A) 0.62 X 10*3/uL (0.20-1.00); Monocytes % (A) 12.2 %; NRBC Per 100 WBC 0 X 10*3/uL (0.00-0.01); Neutrophils # (A) 3.02 X 10*3/uL (1.80-7.70); Neutrophils % (A) 59.2 %; Platelet Count 239 X 10*3/uL (140-440); RBC 4.12 X 10*6/uL (4.10-5.20); RDW 14.8 % (11.5-14.5)
[2024-10-20 09:34] LABS: BUN/Creat Ratio 20.62 Ratio (12.00-20.00); Blood Urea Nitrogen 16.5 mg/dL (9.0-27.0); Calcium 8.5 mg/dL (8.7-10.3); Carbon Dioxide 25.8 mmol/L (21.6-31.8); Chloride 106 mmol/L (96-109); Glucose 101 mg/dL (70-110); Potassium 3.1 mmol/L (3.5-5.5); Sodium 143 mmol/L (135-145)
--- NOTE | 2024-10-20 12:48 | P.PN ---
Subjective Progress Note Date: 10/20/24 The patient is seen today October 18, 2024 in consultation on the regular medical floor. She is a 74-year-old female patient, extremely debilitated related to previous CVA and dementia. The patient has chronic left-sided hemiplegia with contractures and the patient is nonambulatory and she is a intermediate resident. She has chronic contractures involving the left upper and left lower extremity. She is essentially bedridden. She has also cognitive impairment related to dementia. She presents from [facility] again after just being discharged from here on 10/15/2024 with altered mental status according to staff. Chest x-ray reveals airspace opacity involving the posterior right upper lobe. CT scan of the brain revealed no acute intracranial hemorrhage. No significant mass effect or midline shift. Postsurgical changes consistent with previous aneurysm: Pain. Large area of encephalomalacia involving the posterior right MCA territory. CT angiogram revealed minimal abnormalities. No significant intracranial CTA findings. White count 7.3. Hemoglobin 12.6. Platelets 257. Sodium 142. Potassium 3.5. Bicarb 25. BUN 13. Creatinine 0.66. Glucose 98. Urinalysis cloudy with positive nitrates and many bacteria. The patient is seen today in consultation on the regular medical floor. She is currently resting in bed. Awake and alert. Very poor historian. Not able to obtain any information from her. She is maintaining good O2 saturations in the high 90s on 2 L/min per nasal cannula. She has been afebrile. Hemodynamically stable. The patient is seen today October 19, 2024 in follow-up on the regular medical floor. She is currently resting comfortably in bed. Awake and alert. Maintaining O2 saturations in the 90s on 2 L/min per nasal cannula. White count 5.7. Hemoglobin 12.7. Platelets 225. Sodium 145. Potassium 3.2. Bicarb 25. BUN 15. Creatinine 0.8. She remains on Zosyn. Anticoagulated with Xarelto. Continued on her Symbicort. The patient is seen today October 20, 2024 in follow-up on the regular medical floor. She is currently resting in bed. Awake and alert in no acute distress. Maintaining good O2 saturations in the 90s on room air oxygen. She has been afebrile. Hemodynamically stable. White count 5.1. Hemoglobin 11.4. Platelets 239. Sodium 143. Potassium 3.1. Bicarb 26. BUN 17. Creatinine 0.8. Glucose 101. She remains on Zosyn. Continued on Symbicort. Xarelto for DVT prophylaxis. Normal saline at KVO. Objective - Vital Signs Vital signs: Vital Signs Temp 98.3 F 10/20/24 08:00 Pulse 63 10/20/24 08:00 Resp 16 10/20/24 08:00 BP 168/72 10/20/24 08:00 Pulse Ox 93 L 10/20/24 08:06 FiO2 Intake & Output 10/19/24 10/20/24 10/20/24 18:59 06:59 18:59 Intake Total 1800 1020 Balance 1800 1020 Intake: Oral 1800 1020 Other: Voiding Method Diaper Diaper Diaper Incontinent Incontinent Incontinent # Voids 5 1 - Exam GENERAL EXAM: Alert, 74-year-old female, on room air oxygen, in no apparent distress. HEAD: Normocephalic. EYES: Normal reaction of pupils, equal size. NOSE: Clear with pink turbinates. THROAT: No erythema or exudates. NECK: No masses, no JVD. CHEST: No chest wall deformity. LUNGS: Equal air entry with no crackles, wheeze, rhonchi or dullness. CVS: S1 and S2 normal with no audible murmur, regular rhythm. ABDOMEN: No hepatosplenomegaly, normal bowel sounds, no guarding or rigidity. SPINE: No scoliosis or deformity SKIN: No rashes CENTRAL NERVOUS SYSTEM: Cognitively impaired related to chronic dementia and previous CVA tone is normal in all 4 extremities. EXTREMITIES: Chronic left-sided hemiplegia with contractures. No significant edema. No clubbing. No cyanosis. - Labs CBC & Chem 7: 10/20/24 05:12 10/20/24 05:12 Labs: Abnormal Lab Results - Last 24 Hours (Table) 10/20/24 10/20/24 Range/Units 05:12 05:12 Hgb 11.4 L (12.0-15.0) g/dL Hct 36.9 L (37.2-46.3) % MCHC 30.9 L (32.0-37.0) g/dL RDW 14.8 H (11.5-14.5) % Eosinophils # 0 L (0.04-0.35) X 10*3/uL Potassium 3.1 L (3.5-5.5) mmol/L BUN/Creatinine Ratio 20.62 H (12.00-20.00) Ratio Calcium 8.5 L (8.7-10.3) mg/dL Microbiology - Last 24 Hours (Table) 10/18/24 02:05 Urine Culture - Preliminary Urine,Voided Pseudomonas aeruginosa Gram Neg Bacilli Assessment and Plan Assessment: Altered mental status according to intermediate staff, secondary to urinary tract infection from Pseudomonas aeruginosa. Currently on Zosyn History of CVA with chronic debility and left-sided hemiplegia with contractures involving the left upper and left lower extremity and the patient is nonambulatory Dementia with impairment cognitive functions Asymptomatic bacteriuria Lung masses involving a 2 cm in the right upper lobe and 3 cm in the right lower lobe mass. 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 Chronic constipation Hypertension Seizure disorder Chronic atrial fibrillation and anticoagulation with Xarelto Chronic pain Degenerative arthritis custodial resident Former smoker Poor functional performance based on the above-mentioned multiple comorbidities Plan: The patient was seen and evaluated Labs and medications reviewed Antibiotics per ID service Recommend outpatient PET scan Most likely only a candidate for possible radiation Currently on room air oxygen Pulmonary will sign off This patient was seen independently by the pulmonary nurse practitioner addressing pulmonary issues I have personally seen and examined the patient, performed the documentation and the assessment and plan as written. Number of minutes spent on the visit: 25 Dictation was produced using [employer] dictation software. Please excuse any grammatical, word or spelling errors.
[2024-10-20] MEDS: bisacodyL 10 MG SUPP RECTAL PRN (14:58)
[2024-10-20] MEDS ORDERED: Potassium Replacement Protocol 1 EACH MISC MISCELLANE PRN (16:27)
[2024-10-20] MEDS: POTASSIUM CHLORIDE ER 20 MEQ TAB.ER PO SCH ×2 (17:00→21:55)
[2024-10-20] MEDS: MEROPENEM 1 GM in SODIUM CHLORIDE 0.9% 100 ML IVPB SCH (17:21)
--- NOTE | 2024-10-20 19:36 | P.PN ---
Subjective Patient is a pleasant 74 years old female found to have metabolic encephalopathy secondary to her acute urinary tract infection has been evaluated by a neurologist. Unlikely stroke. Patient has a history of stroke and right hemiplegia. Also has memory problems. Getting more awake however still generally weak. There is no overt urinary symptoms but increased frequency of urination might be concerning. Patient also confused she knows in the hospital, slow to respond at times. Urine cultures growing Pseudomonas and gram-negative bacilli, not sensitive to Cipro. Patient antibiotics was adjusted to meropenem today and monitored closely. Also patient on Xarelto and aspirin 81 mg Recommended to have PET scan as an outpatient by pulmonary service. Patient hemodynamically stable saturating 93% on 2 L. Potassium slightly low replaced, hemoglobin slightly reduced. Active Medications Generic Name Dose Route Start Last Admin Trade Name Freq PRN Reason Stop Dose Admin Acetaminophen 650 mg 10/18/24 13:38 Acetaminophen Tab 325 Mg Tab PO Q6H PRN Mild Pain or Fever > 100.5 Hydrocodone Bitart/Acetaminophen 1 each 10/18/24 13:38 10/19/24 22:04 Hydrocodone/Apap 5-325mg 1 Each Tab PO 1 each Q6H PRN Administration Moderate to Severe Pain (4-10) Aspirin 81 mg 10/19/24 09:00 10/20/24 09:19 Aspirin 81 Mg PO 81 mg DAILY TRISTON Administration Baclofen 20 mg 10/18/24 16:00 10/20/24 17:01 Baclofen 10 Mg Tab PO 20 mg TID TRISTON Administration Bisacodyl 10 mg 10/18/24 13:38 10/20/24 14:58 Bisacodyl 10 Mg Supp RECTAL 10 mg DAILY PRN Administration Constipation Budesonide/Formoterol Fumarate 2 puff 10/18/24 20:00 10/20/24 08:05 Symbicort 80-4.5 Mcg Inhaler INHALATION 2 puff RT-BID TRISTON Administration Diltiazem HCl 120 mg 10/19/24 09:00 10/20/24 09:20 Diltiazem Cd 120 Mg Cap.Er.24h PO 120 mg Q24HR TRISTON Administration Duloxetine HCl 20 mg 10/19/24 09:00 10/20/24 09:20 Duloxetine Hcl 20 Mg Capsule.Dr PO 20 mg DAILY TRISTON Administration Sodium Chloride 1,000 mls @ 20 mls/hr 10/18/24 02:00 10/20/24 00:04 Saline 0.9% IV 20 mls/hr .Q24H TRISTON Administration Meropenem 1 gm/ Sodium 100 mls @ 33.3 mls/hr 10/20/24 17:00 10/20/24 17:21 Chloride IVPB 33.3 mls/hr Q8HR TRISTON Administration Protocol Lactobacillus Acidophilus 1 each 10/19/24 09:00 10/20/24 09:19 Lactobacillus Acidophilus/Pect 1 Each Capsule PO 1 each DAILY TRISTON Administration Lactulose 30 gm 10/18/24 21:00 10/20/24 09:37 Lactulose 20 Gm/30 Ml Cup PO Not Given BID TRISTON Levetiracetam 500 mg 10/18/24 17:00 10/20/24 17:01 Levetiracetam 500 Mg Tab PO 500 mg BID@0800,1700 TRISTON Administration Magnesium Hydroxide 7,200 mg 10/18/24 13:38 Magnesium Hydroxide 2,400 Mg/30 Ml Cup PO DAILY PRN Constipation Metoprolol Tartrate 12.5 mg 10/18/24 21:00 10/20/24 09:19 Metoprolol Tartrate 12.5 Mg Tab PO 12.5 mg BID TRISTON Administration Miscellaneous Information 1 each 10/20/24 16:27 Potassium Replacement Protocol 1 Each Misc MISCELLANE DAILY PRN Per Protocol Protocol Naloxone HCl 0.2 mg 10/18/24 01:57 Naloxone 0.4 Mg/Ml 1 Ml Vial IV Q2M PRN Opioid Reversal Pantoprazole Sodium 40 mg 10/18/24 21:00 10/19/24 22:03 Pantoprazole 40 Mg Tablet PO 40 mg HS TRISTON Administration Potassium Chloride 10 meq 10/19/24 09:00 10/20/24 09:20 Potassium Chloride Er 10 Meq Tab.Er.Prt PO 10 meq DAILY TRISTON Administration Pravastatin Sodium 20 mg 10/18/24 21:00 10/19/24 22:03 Pravastatin Sodium 20 Mg Tab PO 20 mg HS TRISTON Administration Pregabalin 150 mg 10/18/24 21:00 10/20/24 09:19 Pregabalin 75 Mg Cap PO 150 mg BID TRISTON Administration Psyllium Hydrophilic Mucilloid 6 gm 10/18/24 21:00 10/20/24 09:19 Psyllium Husk 100% 6 Gm Packet PO 6 gm BID TRISTON Administration Rivaroxaban 10 mg 10/19/24 09:00 10/20/24 09:20 Rivaroxaban 10 Mg Tab PO 10 mg DAILY TRISTON Administration Protocol Senna 17.2 mg 10/18/24 17:00 10/20/24 17:01 Sennosides 8.6 Mg Tab PO 17.2 mg BID@0800,1700 TRISTON Administration Sodium Biphosphate/Sodium Phosphate 133 ml 10/18/24 13:38 Na Phos,M-B/Na Phos,Di-Ba 133 Ml Enema RECTAL DAILY PRN Constipation Objective - Vital Signs Vital signs: Vital Signs Temp 98.3 F 10/20/24 08:00 Pulse 63 10/20/24 08:00 Resp 16 10/20/24 08:00 BP 168/72 10/20/24 08:00 Pulse Ox 93 L 10/20/24 08:06 FiO2 Intake & Output 10/19/24 10/20/24 10/20/24 18:59 06:59 18:59 Intake Total 1800 1020 Balance 1800 1020 Intake: Oral 1800 1020 Other: Voiding Method Diaper Diaper Diaper Incontinent Incontinent Incontinent # Voids 5 1 - Exam -GENERAL: The patient is alert and oriented x3, not in any acute distress. Well developed, well nourished. Generally weak HEENT: Pupils are round and equally reacting to light. EOMI. No scleral icterus. No conjunctival pallor. Normocephalic, atraumatic. No pharyngeal erythema. No thyromegaly. CARDIOVASCULAR: S1 and S2 present. No murmurs, rubs, or gallops. PULMONARY: Chest is clear to auscultation, no wheezing , no crackles. ABDOMEN: Soft, nontender, nondistended, normoactive bowel sounds. No palpable organomegaly. MUSCULOSKELETAL: No joint swelling or deformity. EXTREMITIES: No cyanosis, clubbing, or pedal edema. NEUROLOGICAL: Gross neurological examination did not reveal any focal deficits. SKIN: No rashes. no petechiae. - Labs CBC & Chem 7: 10/20/24 05:12 10/20/24 05:12 Labs: Abnormal Lab Results - Last 24 Hours (Table) 10/20/24 10/20/24 Range/Units 05:12 05:12 Hgb 11.4 L (12.0-15.0) g/dL Hct 36.9 L (37.2-46.3) % MCHC 30.9 L (32.0-37.0) g/dL RDW 14.8 H (11.5-14.5) % Eosinophils # 0 L (0.04-0.35) X 10*3/uL Potassium 3.1 L (3.5-5.5) mmol/L BUN/Creatinine Ratio 20.62 H (12.00-20.00) Ratio Calcium 8.5 L (8.7-10.3) mg/dL Microbiology - Last 24 Hours (Table) 10/18/24 02:05 Urine Culture - Preliminary Urine,Voided Pseudomonas aeruginosa Gram Neg Bacilli Assessment and Plan Assessment: Metabolic encephalopathy Acute urinary tract infection secondary to stone pneumonia as History of stroke on right hemiplegia Dementia Seizure disorder Hypokalemia Atrial fibrillation Lung mass of the right upper lung suspicious for malignancy Plan: Continue with meropenem Continue with Xarelto on aspirin Pulmonary team signed off the case and recommend PET scan for lung mass Patient mentation improving Labs and medication were reviewed.. Continue same treatment. Continue with sym ptomatic treatment. Resume home medication. Monitor labs and vitals. DVT and GI prophylaxis. Further recommendations as per clinical course of the patient DVT prophylaxis: Xarelto GI Prophylaxis: Protonix PT/OT: Pending Prognosis is guarded
[2024-10-20 23:06] LABS: Appearance,Urine Cloudy (Clear); Bacteria,Urine Rare /hpf; Bilirubin,Urine Negative (Negative); Blood,Urine Moderate (Negative); Budding Yeast,Urine Occasional /hpf; Calcium Oxalate Crystals,Urine Moderate /hpf; Color,Urine Yellow; Glucose,Urine (UA) Negative (Negative); Ketones,Urine Trace (Negative); Leukocyte Esterase,Urine Large (Negative); Mucus,Urine Rare /hpf; Nitrite,Urine Negative (Negative); Protein,Urine Negative (Negative); RBC,Urine 26 /hpf (0-5); Specific Gravity,Urine 1.029 (1.001-1.035); Squamous Epithelial Cell,Urine 11 /hpf (0-4); Urobilinogen,Urine <2.0 mg/dL (<2.0); WBC,Urine 18 /hpf (0-5)
[2024-10-21 10:00] LABS: BUN/Creat Ratio 24.17 Ratio (12.00-20.00); Blood Urea Nitrogen 14.5 mg/dL (9.0-27.0); Calcium 8.7 mg/dL (8.7-10.3); Carbon Dioxide 24.9 mmol/L (21.6-31.8); Chloride 111 mmol/L (96-109); Glucose 105 mg/dL (70-110); Magnesium 2.1 mg/dL (1.5-2.4); Sodium 144 mmol/L (135-145)
[2024-10-21] MEDS ORDERED: hydrOXYzine HCL 25 MG TAB PO PRN (12:38)
--- NOTE | 2024-10-21 14:25 | P.PN ---
Subjective Progress Note Date: 10/20/24 Principal diagnosis: Reason for follow-up is question of pneumonia/UTI Patient is a 74-year-old female with a past medical history significant for hypertension hyperlipidemia CVA TIA atrial fibrillation, patient has been brought into the hospital from the local [place] [facility] for evaluation of mental status changes, did have a history of ESBL UTI and there was a right upper lobe mass concerning for possible pneumonia prompting this consultation. On today's evaluation that is 10/20/2024,the patient remains to be afebrile, patient is on room air not requiring supplemental oxygen and does not seem to be any distress and not a very good historian no vomiting or diarrhea has been reported. No new lab has been obtained today urine finalized with drug-resistant Pseudo monas and Klebsiella Objective - Vital Signs Vital signs: Vital Signs Temp 97.8 F 10/20/24 14:00 Pulse 61 10/20/24 14:00 Resp 17 10/20/24 14:00 BP 159/76 10/20/24 14:00 Pulse Ox 96 10/20/24 14:00 FiO2 Intake & Output 10/19/24 10/20/24 10/20/24 18:59 06:59 18:59 Intake Total 1800 1020 Balance 1800 1020 Intake: Oral 1800 1020 Other: Voiding Method Diaper Diaper Diaper Incontinent Incontinent Incontinent # Voids 5 1 - Exam GENERAL DESCRIPTION: An elderly female lying in bed in no distress RESPIRATORY SYSTEM: Unlabored breathing , decreased breath sounds at bases HEART: S1 S2 regular rate and rhythm , ABDOMEN: Soft , no tenderness EXTREMITIES: No edema feet - Labs CBC & Chem 7: 10/20/24 05:12 10/21/24 03:57 Labs: Abnormal Lab Results - Last 24 Hours (Table) 10/20/24 10/20/24 Range/Units 05:12 05:12 Hgb 11.4 L (12.0-15.0) g/dL Hct 36.9 L (37.2-46.3) % MCHC 30.9 L (32.0-37.0) g/dL RDW 14.8 H (11.5-14.5) % Eosinophils # 0 L (0.04-0.35) X 10*3/uL Potassium 3.1 L (3.5-5.5) mmol/L BUN/Creatinine Ratio 20.62 H (12.00-20.00) Ratio Calcium 8.5 L (8.7-10.3) mg/dL Microbiology - Last 24 Hours (Table) 10/18/24 02:05 Urine Culture - Preliminary Urine,Voided Pseudomonas aeruginosa Gram Neg Bacilli Assessment and Plan (1) Abnormal urinalysis Current Visit: Yes Status: Acute Code(s): R82.90 - UNSPECIFIED ABNORMAL FINDINGS IN URINE SNOMED Code(s): 370337250 (2) Lung mass Current Visit: Yes Status: Acute Code(s): R91.8 - OTHER NONSPECIFIC ABNORMAL FINDING OF LUNG FIELD SNOMED Code(s): 799673190 (3) History of ESBL E. coli infection Current Visit: Yes Status: Acute Code(s): Z86.19 - PERSONAL HISTORY OF OTHER INFECTIOUS AND PARASITIC DISEASES SNOMED Code(s): 258440648 (4) Altered mental status Current Visit: Yes Status: Acute Code(s): R41.82 - ALTERED MENTAL STATUS, UNSPECIFIED SNOMED Code(s): 554639755 Plan: 1patient presented to hospital with mental status changes which is likely multifactorial, patient did have a abnormal UA and also have some mental status changes however white count has been normal that will be make her to be mostly asymptomatic bacteriuria rather than symptomatic infection, the patient also have a lung mass with a question of malignancy and concern for possible component of postobstructive pneumonia less likely but not entirely excluded 2-urine is growing Pseudomonas that is elevated to Zosyn and another gram- negative with ID and sensitivity pending 3-will discontinue Zosyn repeat another UA start the patient on meropenem while waiting for sensitivity finalize Dictation was produced using [employer] dictation software. please excuse any grammatical, word or spelling errors.
--- NOTE | 2024-10-21 14:26 | P.PN ---
Subjective Progress Note Date: 10/21/24 Principal diagnosis: Reason for follow-up is question of pneumonia/UTI Patient is a 74-year-old female with a past medical history significant for hypertension hyperlipidemia CVA TIA atrial fibrillation, patient has been brought into the hospital from the local [facility] for evaluation of mental status changes, did have a history of ESBL UTI and there was a right upper lobe mass concerning for possible pneumonia prompting this consultation. On today's evaluation that is 10/21/2024, the patient continues to be afebrile, the patient is on room air and breathing comfortably, the Pt seem to be more awake and alert today she is breathing comfortably no chest pain no cough no abdominal pain no diarrhea. Patient did have a creatinine 0.6 repeat UA is positive initial culture with Pseudomonas and ESBL Klebsiella Objective - Vital Signs Vital signs: Vital Signs Temp 98.1 F 10/21/24 12:39 Pulse 66 10/21/24 12:39 Resp 18 10/21/24 12:39 BP 169/82 10/21/24 12:39 Pulse Ox 94 L 10/21/24 12:39 FiO2 Intake & Output 10/20/24 10/21/24 10/21/24 18:59 06:59 18:59 Intake Total 480 Output Total 350 Balance 130 Intake: Oral 480 Output: Urine 350 Other: Voiding Method Diaper Diaper Diaper Incontinent Incontinent Incontinent # Voids 4 1 # Bowel Movements 1 - Exam GENERAL DESCRIPTION: An elderly female lying in bed in no distress RESPIRATORY SYSTEM: Unlabored breathing , decreased breath sounds at bases HEART: S1 S2 regular rate and rhythm , ABDOMEN: Soft , no tenderness EXTREMITIES: No edema feet - Labs CBC & Chem 7: 10/20/24 05:12 10/21/24 03:57 Labs: Abnormal Lab Results - Last 24 Hours (Table) 10/20/24 10/20/24 10/21/24 Range/Units 20:31 22:00 03:57 Potassium 3.2 L (3.5-5.1) mmol/L Chloride 111 H (96-109) mmol/L BUN/Creatinine Ratio 24.17 H (12.00-20.00) Ratio Urine Appearance Cloudy H (Clear) Urine Ketones Trace H (Negative) Urine Blood Moderate H (Negative) Ur Leukocyte Esterase Large H (Negative) Urine RBC 26 H (0-5) /hpf Urine WBC 18 H (0-5) /hpf Ur Squamous Epith Cells 11 H (0-4) /hpf Calcium Oxalate Crystal Moderate H (None) /hpf Urine Bacteria Rare H (None) /hpf Urine Mucus Rare H (None) /hpf Urine Yeast (Budding) Occasional H (None) /hpf Microbiology - Last 24 Hours (Table) 10/18/24 02:05 Urine Culture - Final Urine,Voided Pseudomonas aeruginosa Klebsiella pneumo ESBL MDRO Assessment and Plan (1) Abnormal urinalysis Current Visit: Yes Status: Acute Code(s): R82.90 - UNSPECIFIED ABNORMAL FINDINGS IN URINE SNOMED Code(s): 540651922 (2) Lung mass Current Visit: Yes Status: Acute Code(s): R91.8 - OTHER NONSPECIFIC ABNORMAL FINDING OF LUNG FIELD SNOMED Code(s): 301107635 (3) History of ESBL E. coli infection Current Visit: Yes Status: Acute Code(s): Z86.19 - PERSONAL HISTORY OF OTHER INFECTIOUS AND PARASITIC DISEASES SNOMED Code(s): 843581592 (4) Altered mental status Current Visit: Yes Status: Acute Code(s): R41.82 - ALTERED MENTAL STATUS, UNSPECIFIED SNOMED Code(s): 441356770 Plan: 1patient presented to hospital with mental status changes which is likely multifactorial, patient did have a abnormal UA and also have some mental status changes however white count has been normal that will be make her to be mostly asymptomatic bacteriuria rather than symptomatic infection, the patient also have a lung mass with a question of malignancy and concern for possible co mponent of postobstructive pneumonia less likely but not entirely excluded 2-urine is growing Pseudomonas that is elevated to Zosyn and ESBL Klebsiella 3-patient seem to have clinically responded as she is more awake today after starting meropenem to continue and monitor clinical course closely Dictation was produced using [employer] dictation software. please excuse any grammatical, word or spelling errors. Time with Patient: Less than 30
--- NOTE | 2024-10-21 18:13 | P.PN ---
Subjective Patient is a pleasant 74 years old female found to have metabolic encephalopathy secondary to her acute urinary tract infection has been evaluated by a neurologist. Unlikely stroke. Patient has a history of stroke and right hemiplegia. Also has memory problems. Getting more awake however still generally weak. There is no overt urinary symptoms but increased frequency of urination might be concerning. Patient also confused she knows in the hospital, slow to respond at times. Urine cultures growing Pseudomonas and gram-negative bacilli, not sensitive to Cipro. Patient antibiotics was adjusted to meropenem today and monitored closely. Also patient on Xarelto and aspirin 81 mg Recommended to have PET scan as an outpatient by pulmonary service. Patient hemodynamically stable saturating 93% on 2 L. Potassium slightly low replaced, hemoglobin slightly reduced. 10/21 Patient still generally weak She is anxious No significant urinary symptoms Urine culture growing ESBL Klebsiella Antibiotics was changed to meropenem Continued on Xarelto. Active Medications Generic Name Dose Route Start Last Admin Trade Name Freq PRN Reason Stop Dose Admin Acetaminophen 650 mg 10/18/24 13:38 Acetaminophen Tab 325 Mg Tab PO Q6H PRN Mild Pain or Fever > 100.5 Hydrocodone Bitart/Acetaminophen 1 each 10/18/24 13:38 10/20/24 21:55 Hydrocodone/Apap 5-325mg 1 Each Tab PO 1 each Q6H PRN Administration Moderate to Severe Pain (4-10) Aspirin 81 mg 10/19/24 09:00 10/21/24 09:09 Aspirin 81 Mg PO 81 mg DAILY [facility]ST[facility] Administration Baclofen 20 mg 10/18/24 16:00 10/21/24 17:33 Baclofen 10 Mg Tab PO 20 mg TID [facility]ON Administration Bisacodyl 10 mg 10/18/24 13:38 10/20/24 14:58 Bisacodyl 10 Mg Supp RECTAL 10 mg DAILY PRN Administration Constipation Budesonide/Formoterol Fumarate 2 puff 10/18/24 20:00 10/21/24 07:37 Symbicort 80-4.5 Mcg Inhaler INHALATION 2 puff RT-BID [facility]ON Administration Diltiazem HCl 120 mg 10/19/24 09:00 10/21/24 09:09 Diltiazem Cd 120 Mg Cap.Er.24h PO 120 mg Q24HR [facility] Administration Duloxetine HCl 20 mg 10/19/24 09:00 10/21/24 09:10 Duloxetine Hcl 20 Mg Capsule.Dr PO 20 mg DAILY [facility] Administration Hydroxyzine HCl 25 mg 10/21/24 12:38 Hydroxyzine Hcl 25 Mg Tab PO TID PRN Anxiety Sodium Chloride 1,000 mls @ 20 mls/hr 10/18/24 02:00 10/21/24 06:43 Saline 0.9% IV Not Given .Q24H [facility] Meropenem 1 gm/ Sodium 100 mls @ 33.3 mls/hr 10/20/24 17:00 10/21/24 16:08 Chloride IVPB 33.3 mls/hr Q8HR [facility] Administration Protocol Lactobacillus Acidophilus 1 each 10/19/24 09:00 10/21/24 09:09 Lactobacillus Acidophilus/Pect 1 Each Capsule PO 1 each DAILY [facility] Administration Lactulose 30 gm 10/18/24 21:00 10/21/24 09:10 Lactulose 20 Gm/30 Ml Cup PO Not Given BID [facility] Levetiracetam 500 mg 10/18/24 17:00 10/21/24 17:33 Levetiracetam 500 Mg Tab PO 500 mg BID@0800,1700 [facility] Administration Magnesium Hydroxide 7,200 mg 10/18/24 13:38 Magnesium Hydroxide 2,400 Mg/30 Ml Cup PO DAILY PRN Constipation Metoprolol Tartrate 12.5 mg 10/18/24 21:00 10/21/24 09:09 Metoprolol Tartrate 12.5 Mg Tab PO 12.5 mg BID [facility] Administration Miscellaneous Information 1 each 10/20/24 16:27 Potassium Replacement Protocol 1 Each Misc MISCELLANE DAILY PRN Per Protocol Protocol Naloxone HCl 0.2 mg 10/18/24 01:57 Naloxone 0.4 Mg/Ml 1 Ml Vial IV Q2M PRN Opioid Reversal Pantoprazole Sodium 40 mg 10/18/24 21:00 10/20/24 21:55 Pantoprazole 40 Mg Tablet PO 40 mg HS [facility] Administration Potassium Chloride 10 meq 10/19/24 09:00 10/21/24 09:09 Potassium Chloride Er 10 Meq Tab.Er.Prt PO 10 meq DAILY [facility] Administration Pravastatin Sodium 20 mg 10/18/24 21:00 10/20/24 21:55 Pravastatin Sodium 20 Mg Tab PO 20 mg HS [facility] Administration Pregabalin 150 mg 10/18/24 21:00 10/21/24 09:09 Pregabalin 75 Mg Cap PO 150 mg BID [facility] Administration Psyllium Hydrophilic Mucilloid 6 gm 10/18/24 21:00 10/21/24 09:10 Psyllium Husk 100% 6 Gm Packet PO Not Given BID [facility] Rivaroxaban 10 mg 10/19/24 09:00 10/21/24 09:09 Rivaroxaban 10 Mg Tab PO 10 mg DAILY [facility] Administration Protocol Senna 17.2 mg 10/18/24 17:00 10/21/24 17:33 Sennosides 8.6 Mg Tab PO Not Given BID@0800,1700 [facility] Sodium Biphosphate/Sodium Phosphate 133 ml 10/18/24 13:38 Na Phos,M-B/Na Phos,Di-Ba 133 Ml Enema RECTAL DAILY PRN Constipation Objective - Vital Signs Vital signs: Vital Signs Temp 98.1 F 10/21/24 12:39 Pulse 66 10/21/24 12:39 Resp 18 10/21/24 12:39 BP 169/82 10/21/24 12:39 Pulse Ox 94 L 10/21/24 12:39 FiO2 Intake & Output 10/20/24 10/21/24 10/21/24 18:59 06:59 18:59 Intake Total 480 Output Total 350 Balance 130 Intake: Oral 480 Output: Urine 350 Other: Voiding Method Diaper Diaper Diaper Incontinent Incontinent Incontinent # Voids 4 1 # Bowel Movements 1 - Exam -GENERAL: The patient is alert and oriented x3, not in any acute distress. Well developed, well nourished. Generally weak HEENT: Pupils are round and equally reacting to light. EOMI. No scleral icterus. No conjunctival pallor. Normocephalic, atraumatic. No pharyngeal erythema. No thyromegaly. CARDIOVASCULAR: S1 and S2 present. No murmurs, rubs, or gallops. PULMONARY: Chest is clear to auscultation, no wheezing , no crackles. ABDOMEN: Soft, nontender, nondistended, normoactive bowel sounds. No palpable organomegaly. MUSCULOSKELETAL: No joint swelling or deformity. EXTREMITIES: No cyanosis, clubbing, or pedal edema. NEUROLOGICAL: Gross neurological examination did not reveal any focal deficits. SKIN: No rashes. no petechiae. - Labs CBC & Chem 7: 10/20/24 05:12 10/21/24 03:57 Labs: Abnormal Lab Results - Last 24 Hours (Table) 10/20/24 10/20/24 10/21/24 Range/Units 20:31 22:00 03:57 Potassium 3.2 L (3.5-5.1) mmol/L Chloride 111 H (96-109) mmol/L BUN/Creatinine Ratio 24.17 H (12.00-20.00) Ratio Urine Appearance Cloudy H (Clear) Urine Ketones Trace H (Negative) Urine Blood Moderate H (Negative) Ur Leukocyte Esterase Large H (Negative) Urine RBC 26 H (0-5) /hpf Urine WBC 18 H (0-5) /hpf Ur Squamous Epith Cells 11 H (0-4) /hpf Calcium Oxalate Crystal Moderate H (None) /hpf Urine Bacteria Rare H (None) /hpf Urine Mucus Rare H (None) /hpf Urine Yeast (Budding) Occasional H (None) /hpf Microbiology - Last 24 Hours (Table) 10/18/24 02:05 Urine Culture - Final Urine,Voided Pseudomonas aeruginosa Klebsiella pneumo ESBL MDRO Assessment and Plan Assessment: Metabolic encephalopathy Acute urinary tract infection secondary to stone pneumonia a. Microorganism growing ESBL Klebsiella History of stroke on right hemiplegia Dementia Seizure disorder Hypokalemia Atrial fibrillation Lung mass of the right upper lung suspicious for malignancy Plan: Continue with meropenem Continue with Xarelto on aspirin Pulmonary team signed off the case and recommend PET scan for lung mass Patient mentation improving Labs and medication were reviewed.. Continue same treatment. Continue with symptomatic treatment. Resume home medication. Monitor labs and vitals. DVT and GI prophylaxis. Further recommendations as per clinical course of the patient DVT prophylaxis: Xarelto GI Prophylaxis: Protonix PT/OT: Pending Prognosis is guarded
[2024-10-22] MEDS: ONDANSETRON 4 MG/2 ML VIAL IVP PRN (08:52)
[2024-10-22] MEDS: PROCHLORPERAZINE INJ 10 MG/2 ML VIAL IVP PRN (13:20)
--- NOTE | 2024-10-22 14:44 | P.PN ---
Subjective Progress Note Date: 10/22/24 Principal diagnosis: Reason for follow-up is question of pneumonia/UTI Patient is a 74-year-old female with a past medical history significant for hypertension hyperlipidemia CVA TIA atrial fibrillation, patient has been brought into the hospital from the local correction for evaluation of mental status changes, did have a history of ESBL UTI and there was a right upper lobe mass concerning for possible pneumonia prompting this consultation. On today's evaluation that is 10/22/2024, Patient is afebrile patient is currently on room air and breathing comfortably patient is more awake wants to get up and go home no chest pain no cough no abdominal pain or diarrhea reported. No new lab has been obtained today repeat urine has been negative so far Objective - Vital Signs Vital signs: Vital Signs Temp 98.5 F 10/22/24 13:35 Pulse 67 10/22/24 13:35 Resp 20 10/22/24 13:35 BP 149/74 10/22/24 13:35 Pulse Ox 95 10/22/24 13:35 FiO2 Intake & Output 10/21/24 10/22/24 10/22/24 18:59 06:59 18:59 Intake Total 120 Output Total 4 Balance -4 120 Intake: Oral 120 Output: Urine 4 Other: Voiding Method Diaper Diaper Diaper Incontinent Incontinent Incontinent # Voids 1 # Bowel Movements 1 1 - Exam GENERAL DESCRIPTION: An elderly female lying in bed in no distress RESPIRATORY SYSTEM: Unlabored breathing , decreased breath sounds at bases HEART: S1 S2 regular rate and rhythm , ABDOMEN: Soft , no tenderness EXTREMITIES: No edema feet - Labs CBC & Chem 7: 10/20/24 05:12 10/21/24 03:57 Labs: Microbiology - Last 24 Hours (Table) 10/20/24 22:00 Urine Culture - Final Urine,Voided 10/18/24 02:05 Urine Culture - Final Urine,Voided Pseudomonas aeruginosa Klebsiella pneumo ESBL MDRO Assessment and Plan (1) Abnormal urinalysis Current Visit: Yes Status: Acute Code(s): R82.90 - UNSPECIFIED ABNORMAL FINDINGS IN URINE SNOMED Code(s): 752362399 (2) Lung mass Current Visit: Yes Status: Acute Code(s): R91.8 - OTHER NONSPECIFIC ABNORMAL FINDING OF LUNG FIELD SNOMED Code(s): 366026613 (3) History of ESBL E. coli infection Current Visit: Yes Status: Acute Code(s): Z86.19 - PERSONAL HISTORY OF OTHER INFECTIOUS AND PARASITIC DISEASES SNOMED Code(s): 320677390 (4) Altered mental status Current Visit: Yes Status: Acute Code(s): R41.82 - ALTERED MENTAL STATUS, UNSPECIFIED SNOMED Code(s): 239294661 Plan: 1patient presented to hospital with mental status changes which is likely multifactorial, patient did have a abnormal UA and also have some mental status changes however white count has been normal that will be make her to be mostly asymptomatic bacteriuria rather than symptomatic infection, the patient also have a lung mass with a question of malignancy and concern for possible component of postobstructive pneumonia less likely but not entirely excluded 2-urine is growing Pseudomonas that is elevated to Zosyn and ESBL Klebsiella 3-patient have some clinical improvement repeat urine culture so far negative she will continue with the meropenem to finish her 3 to 5-day course of therapy should be enough for cystitis there will be no need for any antibiotic on discharge Dictation was produced using [employer] dictation software. please excuse any grammatical, word or spelling errors. Time with Patient: Less than 30
--- NOTE | 2024-10-22 17:14 | P.PN ---
Subjective Patient is a pleasant 74 years old female found to have metabolic encephalopathy secondary to her acute urinary tract infection has been evaluated by a neurologist. Unlikely stroke. Patient has a history of stroke and right hemiplegia. Also has memory problems. Getting more awake however still generally weak. There is no overt urinary symptoms but increased frequency of urination might be concerning. Patient also confused she knows in the hospital, slow to respond at times. Urine cultures growing Pseudomonas and gram-negative bacilli, not sensitive to Cipro. Patient antibiotics was adjusted to meropenem today and monitored closely. Also patient on Xarelto and aspirin 81 mg Recommended to have PET scan as an outpatient by pulmonary service. Patient hemodynamically stable saturating 93% on 2 L. Potassium slightly low replaced, hemoglobin slightly reduced. 10/21 Patient still generally weak She is anxious No significant urinary symptoms Urine culture growing ESBL Klebsiella Antibiotics was changed to meropenem 10/22 Patient states she is comfortable and feels fine today However later in the day developed nausea. She missed her aspirin dose because of her nausea. Zofran did not help. Compazine added. Patient started improving after change antibiotic to meropenem. No need for antibiotics per discharge per ID team recommendation Pulmonary team have recommended outpatient PET scan Objective - Vital Signs Vital signs: Vital Signs Temp 98.5 F 10/22/24 13:35 Pulse 67 10/22/24 13:35 Resp 20 10/22/24 13:35 BP 149/74 10/22/24 13:35 Pulse Ox 95 10/22/24 13:35 FiO2 Intake & Output 10/21/24 10/22/24 10/22/24 18:59 06:59 18:59 Intake Total 120 Output Total 4 Balance -4 120 Intake: Oral 120 Output: Urine 4 Other: Voiding Method Diaper Diaper Diaper Incontinent Incontinent Incontinent # Voids 1 # Bowel Movements 1 1 - Exam -GENERAL: The patient is alert and oriented x3, not in any acute distress. Well developed, well nourished. Generally weak HEENT: Pupils are round and equally reacting to light. EOMI. No scleral icterus. No conjunctival pallor. Normocephalic, atraumatic. No pharyngeal erythema. No thyromegaly. CARDIOVASCULAR: S1 and S2 present. No murmurs, rubs, or gallops. PULMONARY: Chest is clear to auscultation, no wheezing , no crackles. ABDOMEN: Soft, nontender, nondistended, normoactive bowel sounds. No palpable organomegaly. MUSCULOSKELETAL: No joint swelling or deformity. EXTREMITIES: No cyanosis, clubbing, or pedal edema. NEUROLOGICAL: Gross neurological examination did not reveal any focal deficits. SKIN: No rashes. no petechiae. - Labs CBC & Chem 7: 10/20/24 05:12 10/21/24 03:57 Labs: Microbiology - Last 24 Hours (Table) 10/20/24 22:00 Urine Culture - Final Urine,Voided Assessment and Plan Assessment: Metabolic encephalopathy , resolved Acute urinary tract infection secondary to stone pneumonia a. Microorganism growing ESBL Klebsiella History of stroke on right hemiplegia Dementia Seizure disorder Hypokalemia Atrial fibrillation Lung mass of the right upper lung suspicious for malignancy, pulmonary team recommend PET SCAN as outpatient , pt is already informed and she verbalized understanding and acceptance Plan: Continue with meropenem Continue with Xarelto on aspirin Pulmonary team signed off the case and recommend PET scan for lung mass Patient mentation improving Labs and medication were reviewed.. Continue same treatment. Continue with symptomatic treatment. Resume home medication. Monitor labs and vitals. DVT and GI prophylaxis. Further recommendations as per clinical course of the pat ient DVT prophylaxis: Xarelto GI Prophylaxis: Protonix PT/OT: Pending Prognosis is guarded
[2024-10-23 08:15] LABS: Basophils # (A) 0.03 X 10*3/uL (0.00-0.10); Basophils % (A) 0.5 %; Eosinophils # (A) 0 X 10*3/uL (0.04-0.35); Eosinophils % (A) 0 %; HCT 36.8 % (37.2-46.3); HGB 11.6 g/dL (12.0-15.0); Lymphocytes # (A) 1.96 X 10*3/uL (0.90-5.00); Lymphocytes % (A) 29.5 %; MCH 28.2 pg (27.0-32.0); MCHC 31.5 g/dL (32.0-37.0); MCV 89.5 FL (80.0-97.0); Mean Platelet Volume 10.4 FL (9.5-12.2); NRBC Per 100 WBC 0 X 10*3/uL (0.00-0.01); Neutrophils # (A) 3.83 X 10*3/uL (1.80-7.70); Neutrophils % (A) 57.7 %; Platelet Count 249 X 10*3/uL (140-440); RBC 4.11 X 10*6/uL (4.10-5.20); WBC 6.64 X 10*3/uL (4.50-10.00)
[2024-10-23] MEDS: POTASSIUM CHLORIDE ER 20 MEQ TAB.ER PO SCH ×2 (11:12→16:11)
--- NOTE | 2024-10-23 15:09 | P.PN ---
Subjective Progress Note Date: 10/23/24 Principal diagnosis: Reason for follow-up is question of pneumonia/UTI Patient is a 74-year-old female with a past medical history significant for hypertension hyperlipidemia CVA TIA atrial fibrillation, patient has been brought into the hospital from the local alf for evaluation of mental status changes, did have a history of ESBL UTI and there was a right upper lobe mass concerning for possible pneumonia prompting this consultation. On today's evaluation that is 10/23/2024, patient has been afebrile, patient is breathing comfortably and is currently on room air, patient is more awake and alert denies having any chest pain and cough, patient denies nausea vomiting or diarrhea and no abdominal pain. Patient white count 6.64, creatinine 0.6 Objective - Vital Signs Vital signs: Vital Signs Temp 98.1 F 10/23/24 07:42 Pulse 58 L 10/23/24 07:42 Resp 16 10/23/24 07:42 BP 113/64 10/23/24 07:42 Pulse Ox 95 10/23/24 07:57 FiO2 Intake & Output 10/22/24 10/23/24 10/23/24 18:59 06:59 18:59 Intake Total 960 Balance 960 Intake: Oral 960 Other: Voiding Method Diaper Diaper Diaper Incontinent Incontinent Incontinent # Voids 2 2 # Bowel Movements 1 - Exam GENERAL DESCRIPTION: An elderly female lying in bed in no distress RESPIRATORY SYSTEM: Unlabored breathing , decreased breath sounds at bases HEART: S1 S2 regular rate and rhythm , ABDOMEN: Soft , no tenderness EXTREMITIES: No edema feet - Labs CBC & Chem 7: 10/23/24 04:15 10/23/24 09:50 Labs: Abnormal Lab Results - Last 24 Hours (Table) 10/23/24 Range/Units 04:15 Hgb 11.6 L (12.0-15.0) g/dL Hct 36.8 L (37.2-46.3) % MCHC 31.5 L (32.0-37.0) g/dL RDW 15.0 H (11.5-14.5) % Eosinophils # 0 L (0.04-0.35) X 10*3/uL Microbiology - Last 24 Hours (Table) 10/20/24 22:00 Urine Culture - Final Urine,Voided Assessment and Plan (1) Abnormal urinalysis Current Visit: Yes Status: Acute Code(s): R82.90 - UNSPECIFIED ABNORMAL FINDINGS IN URINE SNOMED Code(s): 705210914 (2) Lung mass Current Visit: Yes Status: Acute Code(s): R91.8 - OTHER NONSPECIFIC ABNORMAL FINDING OF LUNG FIELD SNOMED Code(s): 479847551 (3) History of ESBL E. coli infection Current Visit: Yes Status: Acute Code(s): Z86.19 - PERSONAL HISTORY OF OTHER INFECTIOUS AND PARASITIC DISEASES SNOMED Code(s): 940204831 (4) Altered mental status Current Visit: Yes Status: Acute Code(s): R41.82 - ALTERED MENTAL STATUS, UNSPECIFIED SNOMED Code(s): 000404656 Plan: 1patient presented to hospital with mental status changes which is likely multifactorial, patient did have a abnormal UA and also have some mental status changes however white count has been normal that will be make her to be mostly asymptomatic bacteriuria rather than symptomatic infection, the patient also have a lung mass with a question of malignancy and concern for possible component of postobstructive pneumonia less likely but not entirely excluded 2-urine is growing Pseudomonas that is elevated to Zosyn and ESBL Klebsiella 3-patient has shown clinical improvement repeat urine culture so far negative, to continue with the meropenem while inpatient no need for antibiotics on discharge Dictation was produced using [employer] dictation software. please excuse any grammatical, word or spelling errors. Time with Patient: Less than 30
--- NOTE | 2024-10-23 20:33 | P.PN ---
Subjective Patient is a pleasant 74 years old female found to have metabolic encephalopathy secondary to her acute urinary tract infection has been evaluated by a neurologist. Unlikely stroke. Patient has a history of stroke and right hemiplegia. Also has memory problems. Getting more awake however still generally weak. There is no overt urinary symptoms but increased frequency of urination might be concerning. Patient also confused she knows in the hospital, slow to respond at times. Urine cultures growing Pseudomonas and gram-negative bacilli, not sensitive to Cipro. Patient antibiotics was adjusted to meropenem today and monitored closely. Also patient on Xarelto and aspirin 81 mg Recommended to have PET scan as an outpatient by pulmonary service. Patient hemodynamically stable saturating 93% on 2 L. Potassium slightly low replaced, hemoglobin slightly reduced. 10/21 Patient still generally weak She is anxious No significant urinary symptoms Urine culture growing ESBL Klebsiella Antibiotics was changed to meropenem 10/22 Patient states she is comfortable and feels fine today However later in the day developed nausea. She missed her aspirin dose because of her nausea. Zofran did not help. Compazine added. Patient started improving after change antibiotic to meropenem. No need for antibiotics per discharge per ID team recommendation Pulmonary team have recommended outpatient PET scan 10/23 Patient improving slowly and gradually Patient remains on antibiotic with meropenem Urine culture came back final later on in the day with ESBL Klebsiella but also a new organism was Pseudomonas was detected but Pseudomonas sensitive to meropenem. Objective - Vital Signs Vital signs: Vital Signs Temp 98.4 F 10/23/24 14:00 Pulse 57 L 10/23/24 14:00 Resp 16 10/23/24 14:00 BP 115/61 10/23/24 14:00 Pulse Ox 94 L 10/23/24 14:00 FiO2 Intake & Output 10/22/24 10/23/24 10/23/24 18:59 06:59 18:59 Intake Total 960 Balance 960 Intake: Oral 960 Other: Voiding Method Diaper Diaper Diaper Incontinent Incontinent Incontinent # Voids 2 2 # Bowel Movements 1 - Exam -GENERAL: The patient is alert and oriented x3, not in any acute distress. Well developed, well nourished. Generally weak HEENT: Pupils are round and equally reacting to light. EOMI. No scleral icterus. No conjunctival pallor. Normocephalic, atraumatic. No pharyngeal erythema. No thyromegaly. CARDIOVASCULAR: S1 and S2 present. No murmurs, rubs, or gallops. PULMONARY: Chest is clear to auscultation, no wheezing , no crackles. ABDOMEN: Soft, nontender, nondistended, normoactive bowel sounds. No palpable organomegaly. MUSCULOSKELETAL: No joint swelling or deformity. EXTREMITIES: No cyanosis, clubbing, or pedal edema. NEUROLOGICAL: Gross neurological examination did not reveal any focal deficits. SKIN: No rashes. no petechiae. - Labs CBC & Chem 7: 10/23/24 04:15 10/23/24 14:30 Labs: Abnormal Lab Results - Last 24 Hours (Table) 10/23/24 Range/Units 04:15 Hgb 11.6 L (12.0-15.0) g/dL Hct 36.8 L (37.2-46.3) % MCHC 31.5 L (32.0-37.0) g/dL RDW 15.0 H (11.5-14.5) % Eosinophils # 0 L (0.04-0.35) X 10*3/uL Microbiology - Last 24 Hours (Table) 10/20/24 22:00 Urine Culture - Final Urine,Voided Assessment and Plan Assessment: Metabolic encephalopathy , resolved Acute urinary tract infection secondary to stone and culture with microorganism growing ESBL Klebsiella and Pseudomonas Lung mass of the right upper lung suspicious for malignancy, pulmonary team recommend PET SCAN as outpatient , pt is already informed and she verbalized understanding and acceptance History of stroke on right hemiplegia Dementia Seizure disorder Hypokalemia Atrial fibrillation Plan: Continue with meropenem Infectious disease team consult Continue with Xarelto on aspirin Pulmonary team signed off the case and recommend PET scan for lung mass Patient mentation improving Labs and medication were reviewed.. Continue same treatment. Continue with symptomatic treatment. Resume home medication. Monitor labs and vitals. DVT and GI prophylaxis. Further recommendations as per clinical course of the patient DVT prophylaxis: Xarelto GI Prophylaxis: Protonix PT/OT: Pending Prognosis is guarded
[2024-10-24] MEDS: FLUCONAZOLE 100 MG TAB PO SCH (14:47)
[2024-10-24] MEDS ORDERED: ZINC OXIDE PASTE (Z-GUARD) 1 APPLIC TOPICAL PRN (17:52)
--- NOTE | 2024-10-24 18:03 | P.PN ---
Progress Note - Text Progress Note Date: 10/24/24 , resident of [facility] being followed by Dr. Coe. . Patient is a pleasant 74 years old female found to have metabolic encephalopathy secondary to her acute urinary tract infection has been evaluated by a neurologist. Unlikely stroke. Patient has a history of stroke and right hemiplegia. Also has memory problems. Getting more awake however still generally weak. There is no overt urinary symptoms but increased frequency of urination might be concerning. Patient also confused she knows in the hospital, slow to respond at times. Urine cultures growing Pseudomonas and gram-negative bacilli, not sensitive to Cipro. Patient antibiotics was adjusted to meropenem today and monitored closely. Also patient on Xarelto and aspirin 81 mg Recommended to have PET scan as an outpatient by pulmonary service. Patient hemodynamically stable saturating 93% on 2 L. Potassium slightly low replaced, hemoglobin slightly reduced. 10/21 Patient still generally weak She is anxious No significant urinary symptoms Urine culture growing ESBL Klebsiella Antibiotics was changed to meropenem 10/22 Patient states she is comfortable and feels fine today However later in the day developed nausea. She missed her aspirin dose because of her nausea. Zofran did not help. Compazine added. Patient started improving after change antibiotic to meropenem. No need for antibiotics per discharge per ID team recommendation Pulmonary team have recommended outpatient PET scan 10/23 Patient improving slowly and gradually Patient remains on antibiotic with meropenem Urine culture came back final later on in the day with ESBL Klebsiella but also a new organism was Pseudomonas was detected but Pseudomonas sensitive to meropenem. October 24: Laying in bed. Comfortable. Eating 25 to 50%. Denies pain. Answering simple questions Active Medications Acetaminophen (Acetaminophen Tab 325 Mg Tab) 650 mg PO Q6H PRN PRN Reason: Mild Pain or Fever > 100.5 Hydrocodone Bitart/Acetaminophen (Hydrocodone/Apap 5-325mg 1 Each Tab) 1 each PO Q6H PRN PRN Reason: Moderate to Severe Pain (4-10) Last Admin: 10/23/24 23:04 Dose: 1 each Aspirin (Aspirin 81 Mg) 81 mg PO DAILY [facility] Last Admin: 10/24/24 08:43 Dose: 81 mg Baclofen (Baclofen 10 Mg Tab) 20 mg PO TID [facility] Last Admin: 10/24/24 17:16 Dose: 20 mg Bisacodyl (Bisacodyl 10 Mg Supp) 10 mg RECTAL DAILY PRN PRN Reason: Constipation Last Admin: 10/20/24 14:58 Dose: 10 mg Budesonide/Formoterol Fumarate (Symbicort 80-4.5 Mcg Inhaler) 2 puff INHALATION RT-BID [facility] Last Admin: 10/24/24 05:39 Dose: 2 puff Diltiazem HCl (Diltiazem Cd 120 Mg Cap.Er.24h) 120 mg PO Q24HR [facility] Last Admin: 10/24/24 08:41 Dose: 120 mg Duloxetine HCl (Duloxetine Hcl 20 Mg Capsule.Dr) 20 mg PO DAILY [facility] Last Admin: 10/24/24 08:43 Dose: 20 mg Fluconazole (Fluconazole 100 Mg Tab) 100 mg PO DAILY [facility]; Protocol Last Admin: 10/24/24 14:47 Dose: 100 mg Sodium Chloride (Saline 0.9%) 1,000 mls @ 20 mls/hr IV .Q24H [facility] Last Admin: 10/24/24 05:00 Dose: Not Given Lactobacillus Acidophilus (Lactobacillus Acidophilus/Pect 1 Each Capsule) 1 each PO DAILY [facility] Last Admin: 10/24/24 08:41 Dose: 1 each Lactulose (Lactulose 20 Gm/30 Ml Cup) 30 gm PO BID [facility] Last Admin: 10/24/24 08:43 Dose: 30 gm Levetiracetam (Levetiracetam 500 Mg Tab) 500 mg PO BID@0800,1700 [facility] Last Admin: 10/24/24 17:16 Dose: 500 mg Magnesium Hydroxide (Magnesium Hydroxide 2,400 Mg/30 Ml Cup) 7,200 mg PO DAILY PRN PRN Reason: Constipation Metoprolol Tartrate (Metoprolol Tartrate 12.5 Mg Tab) 12.5 mg PO BID [facility] Last Admin: 10/24/24 08:41 Dose: 12.5 mg Miscellaneous Information (Potassium Replacement Protocol 1 Each Misc) 1 each MISCELLANE DAILY PRN; Protocol PRN Reason: Per Protocol Naloxone HCl (Naloxone 0.4 Mg/Ml 1 Ml Vial) 0.2 mg IV Q2M PRN PRN Reason: Opioid Reversal Nystatin (Nystatin 100,000 Unit/Gm Powd 15 Gm) 1 applic TOPICAL TID [facility]; Protocol Ondansetron HCl (Ondansetron 4 Mg/2 Ml Vial) 4 mg IVP Q6HR PRN PRN Reason: Nausea And Vomiting Last Admin: 10/22/24 08:52 Dose: 4 mg Pantoprazole Sodium (Pantoprazole 40 Mg Tablet) 40 mg PO [facility] Last Admin: 10/23/24 23:04 Dose: 40 mg Petrolatum (Zinc Oxide Paste (Z-Guard) 1 Applic) 1 applic TOPICAL Q2HR PRN; Protocol PRN Reason: Wound Healing Potassium Chloride (Potassium Chloride Er 10 Meq Tab.Er.Prt) 10 meq PO DAILY [facility] Last Admin: 10/24/24 08:41 Dose: 10 meq Pravastatin Sodium (Pravastatin Sodium 20 Mg Tab) 20 mg PO HS [facility] Last Admin: 10/23/24 23:28 Dose: 20 mg Pregabalin (Pregabalin 75 Mg Cap) 150 mg PO BID [facility] Last Admin: 10/24/24 08:42 Dose: 150 mg Prochlorperazine Edisylate (Prochlorperazine Inj 10 Mg/2 Ml Vial) 5 mg IVP Q4HR PRN PRN Reason: Nausea And Vomiting Last Admin: 10/22/24 13:20 Dose: 5 mg Psyllium Hydrophilic Mucilloid (Psyllium Husk 100% 6 Gm Packet) 6 gm PO BID [facility] Last Admin: 10/24/24 08:50 Dose: Not Given Rivaroxaban (Rivaroxaban 10 Mg Tab) 10 mg PO DAILY [facility]; Protocol Last Admin: 10/24/24 08:42 Dose: 10 mg Senna (Sennosides 8.6 Mg Tab) 17.2 mg PO BID@0800,1700 [facility] Last Admin: 10/24/24 17:16 Dose: 17.2 mg Sodium Biphosphate/Sodium Phosphate (Na Phos,M-B/Na Phos,Di-Ba 133 Ml Enema) 133 ml RECTAL DAILY PRN PRN Reason: Constipation Social history: Resident at [facility]. [facility] Physical examination: VITAL SIGNS: 98.5, 71, 16, 122 x 68, 91% room air GENERAL: BMI 30, lying bed awake. EYES: Pupils equal. Conjunctiva justo l. HEENT: External appearance of nose and ears normal, oral cavity grossly normal. NECK: JVD not raised; masses not palpable. HEART: First and second heart sounds are normal; no edema. LUNGS: Respiratory rate normal; clear to auscultation. ABDOMEN: Soft, nontender, liver spleen not palpable, no masses palpable. PSYCH: Able to answer some simple questions l. MUSCULOSKELETAL:No Clubbing/cyanosis;muscles-grossly intact NEUROLOGICAL: Cranial nerves grossly intact;, mouth slightly pulled to the left left arm contracture. Bilateral foot drop. INVESTIGATIONS, reviewed in the clinical context: October 23: White count 6.6 hemoglobin 11.6 platelets 249 potassium 3.9 creatinine 0.6 UA positive for nitrate, leukoesterase Urine culture: Positive for Pseudomonas aeruginosa, Klebsiella pneumoniae ESBL/MDRO Assessment and plan: - Acute metabolic encephalopathy secondary to UTI, resolved - Acute UTI with cultures positive for Pseudomonas aeruginosa and Klebsiella pneumoniae ESBL/MDRO On IV meropenem - Primary osteoarthritis Pain medication as needed - Essential hypertension Cardizem CD Lopressor - Seizure disorder Keppra - Atrial fibrillation history Cardizem CD. Lopressor. Xarelto - Right lung mass 3 cm Seen by pulmonary. For outpatient PET scan - Chronic pain Lyrica. [place]. - Left arm contracture - Bilateral foot drop - Severe cognitive impairment from underlying dementia - No code Continue current medication treatment plan. No [place] antibiotics upon discharge. Plan for discharge to [facility] tomorrow.
[2024-10-24] MEDS: NYSTATIN 100,000 UNIT/GM POWD 15 GM TOPICAL SCH (22:26)
[2024-10-25 08:18] VITALS: RESP 16
[2024-10-25 12:13] VITALS: BP 143/62; PULSE 60; TEMP 98.2
--- NOTE | 2024-10-25 13:43 | P.PN ---
Subjective Progress Note Date: 10/24/24 Principal diagnosis: Reason for follow-up is question of pneumonia/UTI Patient is a 74-year-old female with a past medical history significant for hypertension hyperlipidemia CVA TIA atrial fibrillation, patient has been brought into the hospital from the local care home for evaluation of mental status changes, did have a history of ESBL UTI and there was a right upper lobe mass concerning for possible pneumonia prompting this consultation. On today's evaluation that is 10/24/2024, Patient is afebrile this morning patient is breathing comfortably and is currently on room air no chest pain shortness of breath or cough no melena diarrhea and reported No CBC was done today urine culture with Selene albicans Objective - Vital Signs Vital signs: Vital Signs Temp 98.6 F 10/24/24 07:55 Pulse 72 10/24/24 07:55 Resp 16 10/24/24 07:55 BP 112/66 10/24/24 07:55 Pulse Ox 94 L 10/24/24 07:55 FiO2 Intake & Output 10/23/24 10/24/24 10/24/24 18:59 06:59 18:59 Intake Total 120 Balance 120 Intake: Oral 120 Other: Voiding Method Diaper Diaper Incontinent Incontinent # Voids 2 1 # Bowel Movements 1 - Exam GENERAL DESCRIPTION: An elderly female lying in bed in no distress RESPIRATORY SYSTEM: Unlabored breathing , decreased breath sounds at bases HEART: S1 S2 regular rate and rhythm , ABDOMEN: Soft , no tenderness EXTREMITIES: No edema feet - Labs CBC & Chem 7: 10/23/24 04:15 10/24/24 04:49 Labs: Microbiology - Last 24 Hours (Table) 10/20/24 22:00 Urine Culture - Final Urine,Voided Selene albicans Assessment and Plan (1) Abnormal urinalysis Current Visit: Yes Status: Acute Code(s): R82.90 - UNSPECIFIED ABNORMAL FINDINGS IN URINE SNOMED Code(s): 700101887 (2) Lung mass Current Visit: Yes Status: Acute Code(s): R91.8 - OTHER NONSPECIFIC ABNORMAL FINDING OF LUNG FIELD SNOMED Code(s): 771300531 (3) History of ESBL E. coli infection Current Visit: Yes Status: Acute Code(s): Z86.19 - PERSONAL HISTORY OF OTHER INFECTIOUS AND PARASITIC DISEASES SNOMED Code(s): 355565813 (4) Altered mental status Current Visit: Yes Status: Acute Code(s): R41.82 - ALTERED MENTAL STATUS, UNSPECIFIED SNOMED Code(s): 815683503 Plan: 1patient presented to hospital with mental status changes which is likely multifactorial, patient did have a abnormal UA and also have some mental status changes however white count has been normal that will be make her to be mostly asymptomatic bacteriuria rather than symptomatic infection, the patient also have a lung mass with a question of malignancy and concern for possible component of postobstructive pneumonia less likely but not entirely excluded 2-patient initial urine grew Pseudomonas that is sensitive to Zosyn and ESBL Klebsiella that has been treated with meropenem 3- repeat urine culture now growing Selene albicans will discontinue meropenem start the patient on Diflucan Dictation was produced using [employer] dictation software. please excuse any grammatical, word or spelling errors. Time with Patient: Less than 30
--- NOTE | 2024-10-25 13:43 | P.PN ---
Subjective Progress Note Date: 10/25/24 Principal diagnosis: Reason for follow-up is question of pneumonia/UTI Patient is a 74-year-old female with a past medical history significant for hypertension hyperlipidemia CVA TIA atrial fibrillation, patient has been brought into the hospital from the local custodial for evaluation of mental status changes, did have a history of ESBL UTI and there was a right upper lobe mass concerning for possible pneumonia prompting this consultation. On today's evaluation that is 10/25/2024,the patient remains to be afebrile, patient is breathing comfortably on room air, the patient denies chest pain shortness of breath and no significant cough, no vomiting or diarrhea has been reported by the nursing staff. Patient did have a potassium of 3.9 her BMP was done today Objective - Vital Signs Vital signs: Vital Signs Temp 98.2 F 10/25/24 12:12 Pulse 60 10/25/24 12:12 Resp 16 10/25/24 12:12 BP 143/62 10/25/24 12:12 Pulse Ox 95 10/25/24 12:12 FiO2 Intake & Output 10/24/24 10/25/24 10/25/24 18:59 06:59 18:59 Intake Total 480 Output Total 2 0 Balance -2 0 480 Intake: Oral 480 Output: Urine 1 0 Stool 1 Other: Voiding Method Diaper Diaper Diaper Incontinent Incontinent Incontinent # Voids 1 # Bowel Movements 1 - Exam GENERAL DESCRIPTION: An elderly female lying in bed in no distress RESPIRATORY SYSTEM: Unlabored breathing , decreased breath sounds at bases HEART: S1 S2 regular rate and rhythm , ABDOMEN: Soft , no tenderness EXTREMITIES: No edema feet - Labs CBC & Chem 7: 10/23/24 04:15 10/24/24 04:49 Assessment and Plan (1) Abnormal urinalysis Current Visit: Yes Status: Acute Code(s): R82.90 - UNSPECIFIED ABNORMAL FINDINGS IN URINE SNOMED Code(s): 174780278 (2) Lung mass Current Visit: Yes Status: Acute Code(s): R91.8 - OTHER NONSPECIFIC ABNORMAL FINDING OF LUNG FIELD SNOMED Code(s): 664345059 (3) History of ESBL E. coli infection Current Visit: Yes Status: Acute Code(s): Z86.19 - PERSONAL HISTORY OF OTHER INFECTIOUS AND PARASITIC DISEASES SNOMED Code(s): 015293057 (4) Altered mental status Current Visit: Yes Status: Acute Code(s): R41.82 - ALTERED MENTAL STATUS, UNSPECIFIED SNOMED Code(s): 021346973 Plan: 1patient presented to hospital with mental status changes which is likely multifactorial, patient did have a abnormal UA and also have some mental status changes however white count has been normal that will be make her to be mostly asymptomatic bacteriuria rather than symptomatic infection, the patient also have a lung mass with a question of malignancy and concern for possible component of postobstructive pneumonia less likely but not entirely excluded 2-patient initial urine grew Pseudomonas that is sensitive to Zosyn and ESBL Klebsiella that has been treated with meropenem 3- repeat urine culture now growing Selene albicans for which the patient is currently covered with Diflucan to continue for short course on discharge Dictation was produced using [employer] dictation software. please excuse any grammatical, word or spelling errors. Time with Patient: Less than 30
--- NOTE | 2024-10-25 13:58 | P.DS ---
Providers Date of admission: 10/18/24 01:58 Expected date of discharge: 10/25/24 Attending physician: Ruben Werner Consults: 10/18/24 01:57 Consult Physician Routine Consulting Provider: Bao Mejía Consult Reason/Comments: encephalopathy Do you want consulting provider notified?: Yes 10/18/24 06:01 Consult Physician Routine Consulting Provider: Jason Samayoa Consult Reason/Comments: esbl uti Do you want consulting provider notified?: Yes 10/18/24 13:37 Consult Physician Routine Consulting Provider: Fartun Pollard Consult Reason/Comments: pneumonia?? abnormal cxr Do you want consulting provider notified?: Yes Primary care physician: [facility] Hospital Course: , resident of [facility] being followed by Dr. Coe. . Patient is a pleasant 74 years old female found to have metabolic encephalopathy secondary to her acute urinary tract infection has been evaluated by a neurologist. Unlikely stroke. Patient has a history of stroke and right hemiplegia. Also has memory problems. Getting more awake however still generally weak. There is no overt urinary symptoms but increased frequency of urination might be concerning. Patient also confused she knows in the hospital, slow to respond at times. Urine cultures growing Pseudomonas and gram-negative bacilli, not sensitive to Cipro. Patient antibiotics was adjusted to meropenem today and monitored closely. Also patient on Xarelto and aspirin 81 mg Recommended to have PET scan as an outpatient by pulmonary service. Patient hemodynamically stable saturating 93% on 2 L. Potassium slightly low replaced, hemoglobin slightly reduced. 10/21 Patient still generally weak She is anxious No significant urinary symptoms Urine culture growing ESBL Klebsiella Antibiotics was changed to meropenem 10/22 Patient states she is comfortable and feels fine today However later in the day developed nausea. She missed her aspirin dose because of her nausea. Zofran did not help. Compazine added. Patient started improving after change antibiotic to meropenem. No need for antibiotics per discharge per ID team recommendation Pulmonary team have recommended outpatient PET scan 10/23 Patient improving slowly and gradually Patient remains on antibiotic with meropenem Urine culture came back final later on in the day with ESBL Klebsiella but also a new organism was Pseudomonas was detected but Pseudomonas sensitive to meropenem. October 24: Laying in bed. Comfortable. Eating 25 to 50%. Denies pain. Answering simple questions October 25: Comfortable. Tolerating current diet. Antibiotics to be discontinued upon discharge per ID. Will complete a short course of antifungal for intertriginous Selene infection. Following simple commands. At Social history: Resident at [facility]. [facility] Physical examination: VITAL SIGNS: 98.2, 60, 16, 143 x 62, 95% room air GENERAL: BMI 30, lying bed awake comfortable. EYES: Pupils equal. Conjunctiva justo l. HEENT: External appearance of nose and ears normal, oral cavity grossly normal. NECK: JVD not raised; masses not palpable. HEART: First and second heart sounds are normal; no edema. LUNGS: Respiratory rate normal; clear to auscultation. ABDOMEN: Soft, nontender, liver spleen not palpable, no masses palpable. PSYCH: Able to answer some simple questions l. MUSCULOSKELETAL:No Clubbing/cyanosis;muscles-grossly intact NEUROLOGICAL: Dysarthria. Mouth slightly pulled to the left left arm contracture. Bilateral foot drop. INVESTIGATIONS, reviewed in the clinical context: October 23: White count 6.6 hemoglobin 11.6 platelets 249 potassium 3.9 creatinine 0.6 UA positive for nitrate, leukoesterase Urine culture: Positive for Pseudomonas aeruginosa, Klebsiella pneumoniae ESBL/MDRO Assessment and plan: - Acute metabolic encephalopathy secondary to UTI, resolved - Acute UTI with cultures positive for Pseudomonas aeruginosa and Klebsiella pneumoniae ESBL/MDRO On IV meropenem-completed course - Primary osteoarthritis Pain medication as needed - Essential hypertension Cardizem CD Lopressor - Seizure disorder Keppra - Atrial fibrillation history Cardizem CD. Lopressor. Xarelto - Right lung mass 3 cm Seen by pulmonary. For outpatient PET scan - Chronic pain Lyrica. [place]. - Left arm contracture - Bilateral foot drop - Severe cognitive impairment from underlying dementia - No code Disposition: [facility] long-term care at [facility] Plan - Discharge Summary Discharge Rx Participant: No New Discharge Prescriptions: New Nystatin 100,000 Unit/gm Powd [Mycostatin Powder] 1 applic TOPICAL TID each Fluconazole [Diflucan] 100 mg PO DAILY #7 tab Continue tiZANidine [Zanaflex] 2 mg PO Q8HR PRN PRN Reason: Muscle Spasm Magnesium Hydroxide [Milk of Magnesia Concentrate] 7,200 mg PO DAILY PRN PRN Reason: Constipation bisacodyL [Dulcolax] 10 mg RECTAL DAILY PRN PRN Reason: Constipation Acetaminophen [Tylenol] 650 mg PO Q6H PRN PRN Reason: Pain Or Fever > 100.5 Sennosides [Senokot] 17.2 mg PO BID@0800,1700 Metoprolol Tartrate [Lopressor] 12.5 mg PO BID Fluticasone Propion/Salmeterol [Advair 250-50 Diskus] 1 inhalation PO RT-BID Pravastatin Sodium [Pravachol] 20 mg PO HS Potassium Chloride [Klor-Con M10] 10 meq PO DAILY Lactobacillus Acidophilus [Acidophilus] 1 cap PO DAILY dilTIAZem HCL [Cardizem CD] 120 mg PO Q24HR Lactulose [Cephulac] 30 gm PO BID #600 ml Baclofen [Lioresal] 20 mg PO TID Menthol [Biofreeze] 1 spray TOPICAL Q4H PRN PRN Reason: Pain Pregabalin [Lyrica] 150 mg PO BID 3 Days #6 cap HYDROcodone/APAP 5-325MG [[place] 5-325] 1 tab PO Q6H PRN #12 tab PRN Reason: Pain Na Phos,M-B/Na Phos,Di-Ba [Fleet Adult] 133 ml RECTAL DAILY PRN PRN Reason: Constipation levETIRAcetam [Keppra] 500 mg PO BID@0800,1700 Rivaroxaban [Xarelto] 10 mg PO DAILY Omeprazole [PriLOSEC] 20 mg PO HS Naloxegol Oxalate [Movantik] 12.5 mg PO DAILY DULoxetine HCL [Cymbalta] 20 mg PO DAILY Aspirin EC [Ecotrin Low Dose] 81 mg PO DAILY Psyllium Husk 100% [Metamucil Packet] 6 gm PO BID 15 Days #30 packet tiZANidine [Zanaflex] 2 mg PO Q8HR Discontinued Baclofen [Lioresal] 10 mg PO TID Discharge Medication List Acetaminophen [Tylenol] 650 mg PO Q6H PRN 10/12/24 [History] Aspirin EC [Ecotrin Low Dose] 81 mg PO DAILY 10/12/24 [History] DULoxetine HCL [Cymbalta] 20 mg PO DAILY 10/12/24 [History] Fluticasone Propion/Salmeterol [Advair 250-50 Diskus] 1 inhalation PO RT-BID 10/12/24 [History] Lactobacillus Acidophilus [Acidophilus] 1 cap PO DAILY 10/12/24 [History] Magnesium Hydroxide [Milk of Magnesia Concentrate] 7,200 mg PO DAILY PRN 10/12/24 [History] Metoprolol Tartrate [Lopressor] 12.5 mg PO BID 10/12/24 [History] Na Phos,M-B/Na Phos,Di-Ba [Fleet Adult] 133 ml RECTAL DAILY PRN 10/12/24 [History] Naloxegol Oxalate [Movantik] 12.5 mg PO DAILY 10/12/24 [History] Omeprazole [PriLOSEC] 20 mg PO HS 10/12/24 [History] Potassium Chloride [Klor-Con M10] 10 meq PO DAILY 10/12/24 [History] Pravastatin Sodium [Pravachol] 20 mg PO HS 10/12/24 [History] Rivaroxaban [Xarelto] 10 mg PO DAILY 10/12/24 [History] Sennosides [Senokot] 17.2 mg PO BID@0800,1700 10/12/24 [History] bisacodyL [Dulcolax] 10 mg RECTAL DAILY PRN 10/12/24 [History] dilTIAZem HCL [Cardizem CD] 120 mg PO Q24HR 10/12/24 [History] levETIRAcetam [Keppra] 500 mg PO BID@0800,1700 10/12/24 [History] tiZANidine [Zanaflex] 2 mg PO Q8HR PRN 10/12/24 [History] Lactulose [Cephulac] 30 gm PO BID #600 ml 10/15/24 [Rx] Psyllium Husk 100% [Metamucil Packet] 6 gm PO BID 15 Days #30 packet 10/15/24 [Rx] Baclofen [Lioresal] 20 mg PO TID 10/18/24 [History] Menthol [Biofreeze] 1 spray TOPICAL Q4H PRN 10/18/24 [History] tiZANidine [Zanaflex] 2 mg PO Q8HR 10/18/24 [History] Fluconazole [Diflucan] 100 mg PO DAILY #7 tab 10/25/24 [Rx] HYDROcodone/APAP 5-325MG [[place] 5-325] 1 tab PO Q6H PRN #12 tab 10/25/24 [Rx] Nystatin 100,000 Unit/gm Powd [Mycostatin Powder] 1 applic TOPICAL TID each 10/25/24 [Rx] Pregabalin [Lyrica] 150 mg PO BID 3 Days #6 cap 10/25/24 [Rx] Follow up Appointment(s)/Referral(s): Anand Coe DO [Primary Care Provider] - 1-2 days Activity/Diet/Wound Care/Special Instructions: Heart healthy diet Activity is limited till you see your doctor We recommend PET scan for your right lung mass
[2024-10-25 14:46] VITALS: BMI 33.6
== END 2024-10-25 17:36 | DRG 689 ==
LOC: EC 21:41 → 5NMEDONC 10-18 01:58
PROVIDERS: ADMIT Hospitalist; ATTEND Hospitalist
DX: N39.0 Urinary tract infection, site not specified (principal); G93.41 Metabolic encephalopathy; B37.89 Other sites of candidiasis; Z66 Do not resuscitate; I48.20 Chronic atrial fibrillation, unspecified; G93.89 Other specified disorders of brain; B96.1 Klebsiella pneumoniae [K. pneumoniae] as the cause of diseases classified elsewhere; I69.354 Hemiplegia and hemiparesis following cerebral infarction affecting left non-dominant side; F03.94 Unspecified dementia, unspecified severity, with anxiety; G40.909 Epilepsy, unspecified, not intractable, without status epilepticus; I10 Essential (primary) hypertension; R47.01 Aphasia; Z16.12 Extended spectrum beta lactamase (ESBL) resistance; Z16.24 Resistance to multiple antibiotics; E87.6 Hypokalemia; B96.5 Pseudomonas (aeruginosa) (mallei) (pseudomallei) as the cause of diseases classified elsewhere; E78.5 Hyperlipidemia, unspecified; G89.29 Other chronic pain; M21.372 Foot drop, left foot; M21.371 Foot drop, right foot; M62.422 Contracture of muscle, left upper arm; K59.09 Other constipation; Z74.01 Bed confinement status; Z79.01 Long term (current) use of anticoagulants; Z79.51 Long term (current) use of inhaled steroids; Z79.82 Long term (current) use of aspirin; Z79.899 Other long term (current) drug therapy; Z86.19 Personal history of other infectious and parasitic diseases; Z86.79 Personal history of other diseases of the circulatory system; Z87.440 Personal history of urinary (tract) infections; Z87.891 Personal history of nicotine dependence; R91.8 Other nonspecific abnormal finding of lung field; R35.0 Frequency of micturition; M19.91 Primary osteoarthritis, unspecified site
CPT/HCPCS: 36415; 70450; 70496; 70498; 71045; 80048; 80053; 81001; 83605; 83735; 84132; 84484; 85025; 87077; 87086; 87186; 93005; 94640; 94760; 96374; 99285